=== PATIENT | female | born 1990 | race African-American/Black ===

== ENCOUNTER 2022-06-06 07:54 | Emergency (ER) | payer OTHER, SELFPAY ==
[2022-06-06 08:03] VITALS: BP 137/92; PULSE 81; RESP 16; TEMP 36.6; O2SAT 100
[2022-06-06 08:08] VITALS: BP 137/92; PULSE 81; RESP 16; TEMP 36.6; O2SAT 100
[2022-06-06 09:05] VITALS: BP 125/94; PULSE 80; RESP 18; O2SAT 100
--- NOTE | 2022-06-06 09:42 | ED.PSYCH ---
HPI - Psych General Chief Complaint: Psychiatric Symptoms Stated Complaint: MULTIPLE C/O Time Seen by Provider: 06/06/22 08:11 History of Present Illness HPI Narrative: Patient is a 31-year-old female who presents ER with 2 complaints. First concern is that she would like to be evaluated regards to having had a hysterectomy in October of this year. She has no abdominal pain she is having no urinary frequency urgency or dysuria. She has no vaginal discharge or vaginal bleeding. No pain in her vagina. She had nelly in her abdominal scar but they been removed and its healed well. She has noticed no redness or swelling around the scarring area. She would just like to make sure the area appears okay. Patient also reports that she has had new auditory and visual hallucinations occurring over the last 3 days. She has reached out to her mental health provider and is scheduled for a follow-up appointment on 06/10/2022. The hallucinations are not telling her to harm herself nor are they telling her to harm anybody else. She has no intention of harming anyone. She does feel safe at home. She does not wish to have a mental health evaluation at this time. Denies drug use. Related Data Allergies Allergy/AdvReac Type Severity Reaction Status Date / Time No Known Allergies Allergy Verified 06/06/22 09:11 Review of Systems Review of Systems: All systems reviewed & are unremarkable except as noted in HPI and below Constitutional: Constitutional: Denies chills and Denies fever(s) ENT: Denies nasal congestion and Denies sore throat Cardiovascular: Cardiovascular: Denies chest pain, Denies rapid heart rate and Denies radiating jaw, neck or arm pain Respiratory: Respiratory: Denies cough and Denies dyspnea Gastrointestinal: Gastrointestinal: Denies abdominal pain, Denies diarrhea, Denies nausea and Denies vomiting Genitourinary: Genitourinary: Denies abnormal vaginal bleeding, Denies nocturia, Denies dysuria, Denies pelvic pain and Denies vaginal discharge Psychiatric: Psychiatric: Denies anxiety, Denies depression, Denies homicidal ideation and Denies suicidal ideation Comments: Auditory and visual hallucinations reported PMFSH Past Medical History Medical History (Updated 06/06/22 @ 10:15 by Elia Roman MD) Schizophrenia Surgical History Surgical History (Updated 06/06/22 @ 10:15 by Elia Roman MD) History of hysterectomy Exam Narrative: GENERAL: Well-appearing, well-nourished, and in no acute distress. HEAD: Normocephalic, atraumatic. EYES: PERRL and EOMI. CHEST: Clear to auscultation. No respiratory distress. HEART: Regular rate and rhythm. Normal peripheral pulses. ABDOMEN: Soft, nontender, nondistended. EXTREMITIES: Normal range of motion. No edema. SKIN: Warm, dry, no rash. NEURO: No focal deficits. Alert and oriented x3. PSYCH: Normal mood and affect. Patient endorses auditory and visual hallucinations but is not interacting with them during evaluation. Course Course Emergency Course: Patient resting comfortably. Benign exam. Patient does endorse some auditory and occasionally visual hallucinations. She seems to have appropriate insight and states that this is not new for her. She has no thoughts of harming herself or others and she is not being told to harm others by the voices. She has close follow-up and has been in contact with her mental health professional so it seems appropriate to have her discharged at this time. She did not wish to have any additional mental health evaluation while here. Vital Signs Vital signs: Vital Signs Temperature 97.9 F 06/06/22 08:03 Pulse Rate 81 06/06/22 08:03 Respiratory Rate 16 06/06/22 08:03 Blood Pressure 137/92 H 06/06/22 08:03 Pulse Oximetry 100 06/06/22 08:03 Oxygen Delivery Room Air 06/06/22 08:03 Temperature 97.9 F 06/06/22 08:08 Pulse Rate 80 06/06/22 09:05 Respiratory Rate 18 06/06/22 09:05 Blood Press
[2022-06-06 10:17] VITALS: BP 129/92; PULSE 83; RESP 18; O2SAT 97
== END 2022-06-06 10:19 | disposition home or self-care (01) ==
PROVIDERS: Emergency Provider Emergency Medicine
DX: F20.9 Schizophrenia, unspecified (principal)
CPT/HCPCS: 99281

== ENCOUNTER 2022-07-05 08:41 | Emergency (ER) | payer OTHER, SELFPAY ==
--- NOTE | ~2022-07-05 | XR_ITS ---
EXAMINATION: XR chest 2V 07/05/2022 09:45 INDICATION: Shortness of breath and congestion PROCEDURE: 2 view chest COMPARISON: No prior studies for comparison. FINDINGS: The lungs are clear. The cardiomediastinal silhouette is within normal limits. There are no pleural effusions. There is no pneumothorax suspected. IMPRESSION: 1: NO ACUTE CARDIOPULMONARY DISEASE. Reviewed, dictated and finalized at location B.
--- NOTE | 2022-07-05 09:00 | ECG_ITS ---
Measurements Intervals [place] Rate: 96 P: 21 ID: 140 QRS: 11 QRSD: 77 T: 8 QT: 335 QTc: 425 Interpretive Statements SINUS RHYTHM BASELINE ARTIFACT NONSPECIFIC ST AND T-WAVE ABNORMALITY BORDERLINE ECG NO PREVIOUS ECG AVAILABLE FOR COMPARISON Electronically Signed On 07-05-2022 16:09:21 CDT by Filiberto Ching M.D.
--- NOTE | 2022-07-05 09:14 | ED.SOB ---
HPI - SOB/Dyspnea General Chief Complaint: Shortness of Breath/Dyspnea Stated Complaint: SOB Time Seen by Provider: 07/05/22 08:53 History of Present Illness HPI Narrative: Patient is a 31-year-old female here for evaluation of shortness of breath over the past 2 weeks. Patient states that she has felt dyspnea on exertion for the past 2 weeks. Dyspnea is associated with a itch in the center of her chest. The symptoms completely resolve at rest. Additionally notes a productive cough of white sputum. she denies any history of asthma or respiratory issues. She denies any sick contacts at home. She has not attempted any medication for her symptoms. Denies fevers, chills, nausea or vomiting, rashes. Related Data Allergies Allergy/AdvReac Type Severity Reaction Status Date / Time No Known Allergies Allergy Verified 07/05/22 09:31 Review of Systems Review of Systems: Gen.: Denies fevers or chills Eyes: Denies eye pain or visual change ENT: Denies congestion Respiratory: Reports shortness of breath and cough CV: Reports chest pain. Denies palpitations GI: Denies abdominal pain nausea, emesis or diarrhea denies burning, urgency, frequency or hematuria Musculoskeletal: Denies back pain or muscle pain Neuro: Denies numbness, tingling, weakness or focal weakness Skin: Denies rash Except as documented, all other systems reviewed and negative PMFSH Past Medical History Medical History Schizophrenia Surgical History Surgical History History of hysterectomy Exam Narrative: APPEARANCE: Well appearing, no pain in distress, well-nourished. Head: Normocephalic and atraumatic. EYES: PERRLA/EOMI, conjunctivae clear NOSE: No nasal drainage EARS: External ear normal in appearance THROAT: Oropharynx is clear. Mucous membranes are moist. NECK: Supple. No adenopathy, no masses. RESPIRATORY: Airway patent, respirations nonlabored. Clear to auscultation bilaterally, no rales, rhonchi, wheezing. CARDIOVASCULAR: Tachycardic. Regular rhythm without murmurs, rubs, or gallops. ABDOMINAL: Normoactive bowel sounds. Soft, nontender, nondistended. No rebound tenderness or guarding. MUSCULOSKELETAL: Extremities are warm and well-perfused. Moves all extremities well. No edema. NEURO: Normal speech. No focal neurologic deficits. SKIN: Skin is warm and dry. No rashes. PSYCHIATRIC: Normal affect/mood. Course Vital Signs Vital signs: Vital Signs Temperature 99.1 F 07/05/22 09:23 Pulse Rate 92 07/05/22 09:23 Respiratory Rate 18 07/05/22 09:23 Blood Pressure 143/90 H 07/05/22 09:23 Pulse Oximetry 96 07/05/22 09:23 Oxygen Delivery Room Air 07/05/22 09:23 Temperature 99.1 F 07/05/22 09:23 Pulse Rate 92 07/05/22 09:29 Respiratory Rate 18 07/05/22 09:23 Blood Pressure 143/90 H 07/05/22 09:23 Pulse Oximetry 96 07/05/22 09:29 Oxygen Delivery Room Air 07/05/22 09:29 MDM - SOB/Dyspnea MDM Narrative Medical decision making narrative: 31-year-old female with a history of schizophrenia here for evaluation of cough, shortness of breath and chest pain for the past 2 weeks. Patient is nontoxic-appearing on exam and has normal vital signs. Her heart and lungs are clear to auscultation throughout, does not appear volume overloaded. Her EKG and troponin are both nonischemic. Her D-dimer test is negative so doubt PE. Her chest x-ray is clear. test is negative. Likely bronchitis or other viral upper respiratory infection. Patient will be discharged home, not have a primary provider so was referred to applications intern doctor here. Lab Data Result diagrams: 07/05/22 09:19 07/05/22 09:19 Labs: Lab Results 07/05/22 07/05/22 07/05/22 Range/Units 09:19 09:19 09:19 WBC 10.2 H (4.5-10.0) K/mm3 RBC 4.37 (4.2-5.4) M/mm3 Hgb 13.0 (12.0-15.
[2022-07-05 09:23] VITALS: BP 143/90; PULSE 92; RESP 18; TEMP 37.3; O2SAT 96
[2022-07-05 09:28] LABS: Basophils Percent Auto 0.2 % (0.2-1.2); Eosinophils Absolute Auto 0.1 K/mm3 (0-0.3); Eosinophils Percent Auto 0.7 % (0-4.4); Hematocrit 39.3 % (37.0-47.0); Immature Granulocyte Absolute 0.03 K/mm3 (0.00-0.031); Immature Granulocyte Percent A 0.3 % (0-0.5); Lymphocytes Absolute Auto 1.57 K/mm3 (0.9-3.2); Lymphocytes Percent Auto 15.4 % (18.3-44.2); Mean Corpuscular HGB Conc 33.1 g/dl (32-36); Mean Corpuscular Hemoglobin 29.7 pg (26-34); Mean Corpuscular Volume 89.9 fl (80-100); Mean Platelet Volume 9.1 fl (7.4-10.4); Monocytes Absolute Auto 0.7 K/mm3 (0.1-0.6); Monocytes Percent Auto 6.7 % (2.6-8.5); Neutrophils Absolute Auto 7.8 K/mm3 (1.3-6.7); Neutrophils Percent Auto 76.7 % (45.5-73.1); Platelet Count Result 267 k/mm3 (150-375); Red Blood Count 4.37 M/mm3 (4.2-5.4); Red Cell Distribution Width 13.1 % (11.5-14.5); White Blood Count 10.2 K/mm3 (4.5-10.0)
[2022-07-05 09:29] VITALS: PULSE 92; O2SAT 96
[2022-07-05 09:38] LABS: Anion Gap 12 mmol/L (8-16); Blood Urea Nitrogen 2 mg/dL (7-17); Calcium 8.8 mg/dL (8.4-10.2); Carbon Dioxide 25 mmol/L (22-30); Chloride 100 mmol/L (98-107); Estimated CRCL calculation 77 ml/min; Estimated Glomerular Filt Rate > 60; Glucose 102 mg/dL (65-110); Potassium 4.2 mmol/L (3.4-5.0); Sodium 137 mmol/L (137-145)
[2022-07-05 09:50] LABS: Troponin I < 0.012 ng/mL (0.000-0.034)
[2022-07-05 10:04] LABS: D Dimer 0.43 ug/mL (<0.48)
[2022-07-05 10:20] VITALS: BP 124/84; PULSE 92; RESP 18; O2SAT 98
== END 2022-07-05 10:21 | disposition home or self-care (01) ==
PROVIDERS: Physician Assistant; Emergency Provider Emergency Medicine
DX: J06.9 Acute upper respiratory infection, unspecified (principal); Z90.710 Acquired absence of both cervix and uterus; R94.31 Abnormal electrocardiogram [ECG] [EKG]
CPT/HCPCS: 36415; 71046; 80048; 81025; 84484; 85025; 85380; 93005; 99284

== ENCOUNTER 2022-07-08 10:45 | Emergency (ER) | payer OTHER, SELFPAY ==
--- NOTE | ~2022-07-08 | CT_ITS ---
EXAMINATION: CT abdomen pelvis w con DATE: 07/08/2022 16:04 INDICATION: Left-sided abdomen pain TECHNIQUE: Computed tomography (CT) of the abdomen and pelvis was performed with 100 cc Omnipaque 350 intravenous contrast. The dose-length product was 797.07 mGy-cm. Automated exposure control and iter ative reconstruction technique were employed. COMPARISON: None. FINDINGS: There is a calcified granuloma of the right lower lobe. Otherwise lung bases unremarkable. Small pleural effusions. Heart size normal. No significant vascular abnormality. No lymphadenopathy. Fatty infiltration of the liver. The spleen, pancreas, adrenal glands and kidneys are unremarkable. G allbladder is present. Nonobstructive bowel gas pattern. There is a fat-containing upper abdominal ve ntral hernia. There is a fat-containing periumbilical hernia. Nonobstructive bowel gas pattern. Claudia l appendix. No acute osseous abnormality. IMPRESSION: 1. No acute abdominal abnormality. 2: Small pleural effusions. 3: Fat-containing supraumbilical and periumbilical hernias Reviewed, dictated and finalized at location B.
[2022-07-08 11:27] VITALS: BP 139/86; PULSE 96; RESP 15; TEMP 36.6; O2SAT 100
[2022-07-08 11:27] LABS: Basophils Percent Auto 0.2 % (0.2-1.2); Eosinophils Percent Auto 0.4 % (0-4.4); Hematocrit 41.2 % (37.0-47.0); Hemoglobin 13.8 g/dL (12.0-15.0); Immature Granulocyte Absolute 0.01 K/mm3 (0.00-0.031); Immature Granulocyte Percent A 0.2 % (0-0.5); Lymphocytes Absolute Auto 1.46 K/mm3 (0.9-3.2); Lymphocytes Percent Auto 31.7 % (18.3-44.2); Mean Corpuscular HGB Conc 33.5 g/dl (32-36); Mean Corpuscular Hemoglobin 29.6 pg (26-34); Mean Corpuscular Volume 88.4 fl (80-100); Mean Platelet Volume 9.5 fl (7.4-10.4); Monocytes Absolute Auto 0.8 K/mm3 (0.1-0.6); Monocytes Percent Auto 18.3 % (2.6-8.5); Neutrophils Absolute Auto 2.3 K/mm3 (1.3-6.7); Neutrophils Percent Auto 49.2 % (45.5-73.1); Platelet Count Result 229 k/mm3 (150-375); Red Blood Count 4.66 M/mm3 (4.2-5.4); White Blood Count 4.6 K/mm3 (4.5-10.0)
[2022-07-08 11:41] LABS: Alanine Aminotransferase 16 U/L (6-35); Albumin Level 4.6 g/dL (3.5-5.1); Alkaline Phosphatase 123 U/L (38-126); Anion Gap 13 mmol/L (8-16); Aspartate Amino Transferase 26 U/L (14-36); Bilirubin,Total 0.3 mg/dL (0.2-1.3); Blood Urea Nitrogen 4 mg/dL (7-17); Calcium 8.4 mg/dL (8.4-10.2); Carbon Dioxide 22 mmol/L (22-30); Chloride 101 mmol/L (98-107); Estimated CRCL calculation 95 ml/min; Estimated Glomerular Filt Rate > 60; Glucose 118 mg/dL (65-110); Lipase 109 U/L (23-300); Potassium 3.7 mmol/L (3.4-5.0); Sodium 136 mmol/L (137-145)
--- NOTE | 2022-07-08 14:14 | ED.ABDPAIN ---
HPI - Abdominal Pain General Chief Complaint: Abdominal Pain Stated Complaint: dizziness, abd pain Time Seen by Provider: 07/08/22 13:55 History of Present Illness HPI narrative: Patient is a 31-year-old female here for evaluation of abdominal pain over the past day. Patient states the pain is in her lower abdomen and radiates to her back. She also reports urinary urgency and frequency for the past several days. She has not attempted any medication for pain at home. No fevers, chills, nausea or vomiting. No history of surgeries on her abdomen. Related Data Allergies Allergy/AdvReac Type Severity Reaction Status Date / Time No Known Allergies Allergy Verified 07/05/22 09:31 Review of Systems Review of Systems: Gen: Denies fevers or chills Eyes: Denies eye pain or visual change ENT: Denies congestion Respiratory: Denies shortness of breath or cough CV: Denies chest pain or palpitations GI: Reports lower abdominal pain, nausea. Denies emesis or diarrhea : Reports dysuria and urgency. Musculoskeletal: Denies back pain or muscle pain Neuro: Denies numbness, tingling, weakness or focal weakness Skin: Denies rash Except as documented, all other systems reviewed and negative PMFSH Past Medical History Medical History Schizophrenia Surgical History Surgical History History of hysterectomy Exam Narrative: APPEARANCE: Well appearing, no pain in distress, well-nourished. Head: Normocephalic and atraumatic. EYES: PERRLA/EOMI, conjunctivae clear NOSE: No nasal drainage EARS: External ear normal in appearance THROAT: Oropharynx is clear. Mucous membranes are moist. NECK: Supple. No adenopathy, no masses. RESPIRATORY: Airway patent, respirations nonlabored. Clear to auscultation bilaterally, no rales, rhonchi, wheezing. CARDIOVASCULAR: Regular rate and rhythm without murmurs, rubs, or gallops. ABDOMINAL: Normoactive bowel sounds. Soft, nontender, nondistended. No rebound tenderness or guarding. MUSCULOSKELETAL: Extremities are warm and well-perfused. Moves all extremities well. No edema. NEURO: Normal speech. No focal neurologic deficits. SKIN: Skin is warm and dry. No rashes. PSYCHIATRIC: Normal affect/mood. Course Vital Signs Vital signs: Vital Signs Temperature 97.9 F 07/08/22 11: Pulse Rate 96 07/08/22 11: Respiratory Rate 15 07/08/22 11:27 Blood Pressure 139/86 07/08/22 11:27 Pulse Oximetry 100 07/08/22 11:27 Oxygen Delivery Room Air 07/08/22 11:27 Temperature 97.9 F 07/08/22 11:27 Pulse Rate 96 07/08/22 11:27 Respiratory Rate 15 07/08/22 11:27 Blood Pressure 139/86 07/08/22 11:27 Pulse Oximetry 100 07/08/22 11:27 Oxygen Delivery Room Air 07/08/22 11:27 MDM - Abdominal Pain MDM Narrative Medical decision making narrative: 31-year-old female here for evaluation of lower abdominal pain and dysuria for the past several days. She is nontoxic-appearing on exam does have suprapubic tenderness. She does have evidence of UTI on her urinalysis. No significant leukocytosis and her vital signs are normal. No CVA tenderness to suggest ascending infection. CT scan shows fat-containing umbilical hernia and very small pleural effusions but no acute abdominal process. Patient states that she is not feeling short of breath or having chest pain, feel that the pleural effusions are likely clinically insignificant. Patient will be discharged home with antibiotics for urinary tract infection. She was given reasons to return to the ED and she voiced understanding. Lab Data Result diagrams: 07/08/22 11:18 07/08/22 11:18 Labs: Lab Results 07/08/22 07/08/22 07/08/22 Range/Units 11:18 11:18 15:05 WBC 4.6 (4.5-10.0) K/mm3 RBC 4.66 (4.2-5.4) M/mm3 Hgb 13.8 (12.0-15.0) g/dL Hct 41.2 (37.0-47.0) % [facility]
[2022-07-08 15:29] LABS: Add Urine Microscopic? YES; Appearance Urine Cloudy (Clear); Bacteria Urine 3+ /hpf; Bilirubin Urine Negative (Negative); Blood Urine Negative (Negative); Color Urine Yellow (Yellow); Glucose Urine UA Negative (Negative); Ketones Urine Negative (Negative); Leukocyte Esterase Ur 3+ LEU/UL (Negative); Mucus Urine Rare /lpf; Nitrate Urine Negative (Negative); Protein Urine Negative (Negative); Specific Grav Ur 1.008 (1.001-1.035); Squamous Epithelial Cell Urine Many /hpf (Few); Urobilinogen Urine Negative mg/dL (<2.0)
== END 2022-07-08 16:51 | disposition home or self-care (01) ==
PROVIDERS: Emergency Medicine; Emergency Provider Emergency Medicine; PCP Emergency Medicine
DX: N39.0 Urinary tract infection, site not specified (principal); K42.9 Umbilical hernia without obstruction or gangrene
CPT/HCPCS: 36415; 74177; 80053; 81001; 81025; 83690; 85025; 87086; 87088; 99284; Q9967

== ENCOUNTER 2022-09-19 12:46 | Emergency (ER) | payer OTHER, SELFPAY ==
[2022-09-19 12:52] VITALS: BP 134/76; PULSE 103; RESP 16; TEMP 36.6; O2SAT 100
[2022-09-19 13:23] VITALS: RESP 18; O2SAT 100
--- NOTE | 2022-09-19 13:31 | ED.GENADULT ---
HPI - General Adult General Chief complaint: Unspecified Stated complaint: here for a checkup Time Seen by Provider: 09/19/22 13:02 History of Present Illness HPI narrative: Patient is a 31-year-old female with history of psychotic disorder here for evaluation of dysuria, urgency and frequency for the past 2 days. She has a history of UTIs and states it feels similar to previous. Denies fevers or back pain. Related Data Allergies Allergy/AdvReac Type Severity Reaction Status Date / Time No Known Allergies Allergy Verified 07/05/22 09:31 Review of Systems Review of Systems: Gen.: Denies fevers or chills Eyes: Denies eye pain or visual change ENT: Denies congestion Respiratory: Denies shortness of breath or cough CV: Denies chest pain or palpitations GI: Denies abdominal pain nausea, emesis or diarrhea reports lower abdominal pain, dysuria and urgency. Musculoskeletal: Denies back pain or muscle pain Neuro: Denies numbness, tingling, weakness or focal weakness Skin: Denies rash Except as documented, all other systems reviewed and negative [facility] Past Medical History Medical History Schizophrenia Surgical History Surgical History History of hysterectomy Exam Narrative: APPEARANCE: Disheveled appearing. Head: Normocephalic and atraumatic. EYES: PERRLA/EOMI, conjunctivae clear NOSE: No nasal drainage EARS: External ear normal in appearance THROAT: Oropharynx is clear. Mucous membranes are moist. NECK: Supple. No adenopathy, no masses. RESPIRATORY: Airway patent, respirations nonlabored. Clear to auscultation bilaterally, no rales, rhonchi, wheezing. CARDIOVASCULAR: Regular rate and rhythm without murmurs, rubs, or gallops. ABDOMINAL: Normoactive bowel sounds. Soft, nontender, nondistended. No rebound tenderness or guarding. MUSCULOSKELETAL: Extremities are warm and well-perfused. Moves all extremities well. No edema. NEURO: Normal speech. No focal neurologic deficits. SKIN: Skin is warm and dry. No rashes. PSYCHIATRIC: Normal affect/mood. Course Vital Signs Vital signs: Vital Signs Temperature 97.8 F 09/19/22 12:52 Pulse Rate 103 H 09/19/22 12:52 Respiratory Rate 16 09/19/22 12:52 Blood Pressure 134/76 09/19/22 12:52 Pulse Oximetry 100 09/19/22 12:52 Oxygen Delivery Room Air 09/19/22 12:52 Temperature 97.8 F 09/19/22 12:52 Pulse Rate 103 H 09/19/22 12:52 Respiratory Rate 18 09/19/22 13:23 Blood Pressure 134/76 09/19/22 12:52 Pulse Oximetry 100 09/19/22 13:23 Oxygen Delivery Room Air 09/19/22 12:52 Medical Decision Making MDM Narrative Medical decision making narrative: 31-year-old female here for evaluation of dysuria, urgency and frequency and some suprapubic abdominal pain over the past several days. Her urine does show evidence of infection with 3+ leuks, 1+ bacteria, and red blood cells. No fevers, flank pain, chills or signs of systemic illness. She will be treated as an outpatient with antibiotics. Return precautions discussed and she voiced understanding. Vital Signs Vital Signs: Vital Signs Temperature 97.8 F 09/19/22 12:52 Pulse Rate 103 H 09/19/22 12:52 Respiratory Rate 16 09/19/22 12:52 Blood Pressure 134/76 09/19/22 12:52 Pulse Oximetry 100 09/19/22 12:52 Oxygen Delivery Room Air 09/19/22 12:52 Temperature 97.8 F 09/19/22 12:52 Pulse Rate 103 H 09/19/22 12:52 Respiratory Rate 18 09/19/22 13:23 Blood Pressure 134/76 09/19/22 12:52 Pulse Oximetry 100 09/19/22 13:23 Oxygen Delivery Room Air 09/19/22 12:52 Lab Data Labs: Lab Results 09/19/22 Range/Units 13:28 Urine Color Yellow (Yellow) Urine Appearance Clear (Clear) Urine pH 6.0 (5.0-9.0) Ur Specific [place] <= 1.005 (1.001-1.035) Urine Protein Negative (Negative) mg/dL Urine Glucose (UA)
[2022-09-19 13:36] LABS: Add Urine Microscopic? YES; Appearance Urine Clear (Clear); Bilirubin Urine Negative (Negative); Blood Urine Negative (Negative); Color Urine Yellow (Yellow); Glucose Urine UA Negative (Negative); Ketones Urine Negative (Negative); Leukocyte Esterase Ur 3+ LEU/UL (Negative); Nitrate Urine Negative (Negative); Protein Urine Negative (Negative); Specific Grav Ur <= 1.005 (1.001-1.035); Urobilinogen Urine 0.2 mg/dL (<2.0)
[2022-09-19 13:44] LABS: Bacteria Urine 1+ /hpf; Mucus Urine Rare /lpf; Squamous Epithelial Cell Urine Many /hpf (Few); WBC Urine 16-20 /hpf
== END 2022-09-19 14:09 | disposition home or self-care (01) ==
PROVIDERS: Emergency Provider Physician Assistant
DX: N39.0 Urinary tract infection, site not specified (principal); Z90.710 Acquired absence of both cervix and uterus
CPT/HCPCS: 81001; 81025; 87086; 87088; 99283

== ENCOUNTER 2022-12-13 08:37 | Emergency (ER) | payer OTHER, SELFPAY ==
--- NOTE | ~2022-12-13 | US_ITS ---
EXAMINATION: US venous doppler [facility] DATE: 12/13/2022 13:54 INDICATION: Lower limb pain. TECHNIQUE: Grayscale ultrasound images without and with compression and Doppler ultrasound images of the bilateral lower extremity veins were obtained. COMPARISON: None. FINDINGS: The visualized portions of right common femoral vein, profunda (deep) femoral vein, femoral vein, pop liteal vein, peroneal veins, posterior tibial veins, and greater saphenous vein outflow are patent. The visualized portions of left common femoral vein, profunda femoral vein, femoral vein, popliteal v ein, peroneal veins, posterior tibial veins, and greater saphenous vein outflow are patent. IMPRESSION: 1. No deep venous thrombosis. Reviewed, dictated and finalized at location A.
[2022-12-13 08:56] VITALS: BP 132/89; PULSE 95; RESP 16; TEMP 36.6; O2SAT 99
[2022-12-13 11:26] VITALS: BP 122/74; PULSE 78; RESP 18; TEMP 37; O2SAT 100
[2022-12-13] MEDS: IBUPROFEN 600 MG TABLET PO (11:51)
--- NOTE | 2022-12-13 11:54 | ED.GENADULT ---
HPI - General Adult General Chief complaint: Extremity Injury, Lower Stated complaint: leg pain for a month Time Seen by Provider: 12/13/22 11:06 Source: patient Mode of arrival: ambulatory Limitations: no limitations History of Present Illness HPI narrative: This is a 32-year-old female with PMH of schizophrenia presents to the ED with chief complaint of bilateral leg pain, worse on the left for the past month. Patient states that the pain is actually described more of a tightness and less of a sharp pain. Denies any specific injuries. Denies swelling or skin changes. Denies shortness of breath. Past surgical history of hysterectomy Related Data Allergies Allergy/AdvReac Type Severity Reaction Status Date / Time No Known Allergies Allergy Verified 12/13/22 11:31 Review of Systems Review of Systems: CONSTITUTIONAL: Denies fever, chills, or sweats. EYES: Denies visual changes, redness, or discharge. ENT: Denies rhinorrhea, congestion, sore throat, or otalgia. CARDIOVASCULAR: Denies chest pain, palpitations, or edema. RESPIRATORY: Denies cough or dyspnea. GASTROINTESTINAL: Denies abdominal pain, nausea, vomiting, or diarrhea. GENITOURINARY: Denies dysuria or hematuria. SKIN: Denies rash or itching. MUSCULOSKELETAL: Endorses bilateral lower leg tightness. Denies back pain, joint pain, or myalgia. NEUROLOGIC: Denies headache, numbness, dizziness, or weakness. PSYCHIATRIC: Denies anxiety or depression. PMFSH Past Medical History Medical History Schizophrenia Surgical History Surgical History History of hysterectomy Exam Narrative: GENERAL: Well-appearing, well-nourished, and in no acute distress. HEAD: Normocephalic, atraumatic. EYES: PERRLA and EOMI. ENT: Nares clear, no rhinorrhea or epistaxis. Mucous membranes moist. Oropharynx without tonsillar hypertrophy exudate or other lesions. NECK: Supple. No adenopathy or masses. CHEST: No respiratory distress. Clear to auscultation. No wheezes rales or rhonchi HEART: Regular rate and rhythm. No murmur heard. Normal peripheral pulses. ABDOMEN: Soft, nontender, nondistended, normal active bowel sounds. EXTREMITIES: Negative Homans' sign. No calf tenderness bilaterally. Normal range of motion. No edema. Soft compartments. NV intact distally MSK exam is otherwise benign. Normal bilateral ankles and knees. SKIN: Warm, dry, no rash. NEURO: Alert and oriented x3. No focal deficits. PSYCH: Normal mood and affect. Course Vital Signs Vital signs: Vital Signs Temperature 97.9 F 12/13/22 08:56 Pulse Rate 95 12/13/22 08:56 Respiratory Rate 16 12/13/22 08:56 Blood Pressure 132/89 12/13/22 08:56 Pulse Oximetry 99 12/13/22 08:56 Oxygen Delivery Room Air 12/13/22 08:56 Temperature 98.6 F 12/13/22 11:26 Pulse Rate 78 12/13/22 11:26 Respiratory Rate 18 12/13/22 11:26 Blood Pressure 122/74 12/13/22 11:26 Pulse Oximetry 100 12/13/22 11:26 Oxygen Delivery Room Air 12/13/22 11:26 Medical Decision Making MDM Narrative Medical decision making narrative: This is a 32-year-old female presents to the ED with chief complaint of bilateral lower leg tightness x1 month. Denies skin changes or swelling. Vitals are stable. Exam is within normal limits. CBC, BMP. D-dimer is very slightly elevated so bilateral Dopplers of the lower legs were ordered. Doppler scan show negative CHRISTIANA LE stduies. no emergent cause for her tightness today. Encouraged PCP follow-up to get down to the bottom of this. Muscle relaxer prescribed in the mean time. Patient is understanding and agreeable with the plan for discharge and follow-up. Vital Signs Vital Signs: Vital Signs Temperature 97.9 F 12/13/22 08:56 Pulse Rate 95 12/13/22 08:56 Respiratory Rate 16 12/13/22 08:56 Blood Pressure 132/89 12/13/22 08:56 Pulse Ox
[2022-12-13 12:26] LABS: Basophils Percent Auto 0.3 % (0.2-1.2); Eosinophils Absolute Auto 0.1 K/mm3 (0-0.3); Eosinophils Percent Auto 0.5 % (0-4.4); Hematocrit 40.9 % (37.0-47.0); Hemoglobin 13.7 g/dL (12.0-15.0); Immature Granulocyte Absolute 0.03 K/mm3 (0.00-0.031); Immature Granulocyte Percent A 0.3 % (0-0.5); Lymphocytes Absolute Auto 2.39 K/mm3 (0.9-3.2); Lymphocytes Percent Auto 21.9 % (18.3-44.2); Mean Corpuscular HGB Conc 33.5 g/dl (32-36); Mean Corpuscular Hemoglobin 29.5 pg (26-34); Mean Corpuscular Volume 88.1 fl (80-100); Mean Platelet Volume 9.3 fl (7.4-10.4); Monocytes Absolute Auto 0.7 K/mm3 (0.1-0.6); Monocytes Percent Auto 6.5 % (2.6-8.5); Neutrophils Absolute Auto 7.7 K/mm3 (1.3-6.7); Neutrophils Percent Auto 70.5 % (45.5-73.1); Platelet Count Result 235 k/mm3 (150-375); Red Blood Count 4.64 M/mm3 (4.2-5.4); Red Cell Distribution Width 12.4 % (11.5-14.5); White Blood Count 10.9 K/mm3 (4.5-10.0)
[2022-12-13 12:41] LABS: Anion Gap 7 mmol/L (8-16); Blood Urea Nitrogen 8 mg/dL (7-17); Carbon Dioxide 29 mmol/L (22-30); Chloride 100 mmol/L (98-107); Estimated CRCL calculation 86 ml/min; Estimated Glomerular Filt Rate > 60; Glucose 110 mg/dL (65-110); Potassium 4.3 mmol/L (3.4-5.0); Sodium 136 mmol/L (137-145)
[2022-12-13 13:21] LABS: D Dimer 0.53 ug/mL (<0.48)
== END 2022-12-13 14:20 | disposition home or self-care (01) ==
PROVIDERS: Emergency Provider Physician Assistant
DX: M79.605 Pain in left leg (principal); M79.604 Pain in right leg; G89.29 Other chronic pain; Z90.710 Acquired absence of both cervix and uterus
CPT/HCPCS: 36415; 80048; 85025; 85380; 93970; 99284; A9270

== ENCOUNTER 2023-01-27 13:39 | Emergency (ER) | payer OTHER, SELFPAY ==
--- NOTE | ~2023-01-27 | XR_ITS ---
Clinical Indication: Shortness of breath PA and lateral views of the chest: Comparison: 07/05/2022 Findings: The lungs are clear, without evidence of focal consolidation or pleural effusion. Cardiome diastinal silhouette is within normal limits. Bones and soft tissues are unremarkable. Impression: Normal chest. Reviewed, dictated and finalized at location . Impression: Normal chest.
[2023-01-27 13:40] VITALS: BP 152/116; PULSE 108; RESP 17; TEMP 36.5; O2SAT 99
--- NOTE | 2023-01-27 14:05 | ECG_ITS ---
Measurements Intervals [place] Rate: 90 P: 39 [place]: 144 QRS: 19 QRSD: 78 T: 15 QT: 336 QTc: 413 Interpretive Statements SINUS RHYTHM NORMAL ECG COMPARED TO ECG 07/05/2022 09:22:15 NO SIGNIFICANT CHANGES Electronically Signed On 01-27-2023 14:44:57 CDT by Leo Yu D.O.
--- NOTE | 2023-01-27 14:16 | ED.URI ---
HPI - URI/Sore Throat General Chief Complaint: Upper Respiratory Infection Stated Complaint: wheezing Time Seen by Provider: 01/27/23 13:49 History of Present Illness HPI Narrative: 32-year-old female history of schizophrenia here for evaluation of congestion, cough, pleuritic chest pain x2 days. Patient states that she has felt unwell for the past 2 days. Has had a pain in her upper chest region that is there with deep breaths and when she coughs. No leg swelling. Related Data Allergies Allergy/AdvReac Type Severity Reaction Status Date / Time No Known Allergies Allergy Verified 12/13/22 11:31 Review of Systems Review of Systems: Gen.: Denies fevers or chills Eyes: Denies eye pain or visual change ENT: Denies congestion Respiratory: Reports shortness of breath CV: Reports chest pain GI: Denies abdominal pain nausea, emesis or diarrhea denies burning, urgency, frequency or hematuria Musculoskeletal: Denies back pain or muscle pain Neuro: Denies numbness, tingling, weakness or focal weakness Skin: Denies rash Except as documented, all other systems reviewed and negative PMFSH Past Medical History Medical History Schizophrenia Surgical History Surgical History History of hysterectomy Exam Narrative: APPEARANCE: Well appearing, no pain in distress, well-nourished. Head: Normocephalic and atraumatic. EYES: PERRLA/EOMI, conjunctivae clear NOSE: No nasal drainage EARS: External ear normal in appearance THROAT: Oropharynx is clear. Mucous membranes are moist. NECK: Supple. No adenopathy, no masses. RESPIRATORY: Airway patent, respirations nonlabored. Clear to auscultation bilaterally, no rales, rhonchi, wheezing. CARDIOVASCULAR: Regular rate and rhythm without murmurs, rubs, or gallops. ABDOMINAL: Normoactive bowel sounds. Soft, nontender, nondistended. No rebound tenderness or guarding. MUSCULOSKELETAL: Extremities are warm and well-perfused. Moves all extremities well. No edema. NEURO: Normal speech. No focal neurologic deficits. SKIN: Skin is warm and dry. No rashes. PSYCHIATRIC: Flat affect Course Vital Signs Vital signs: Vital Signs Temperature 97.7 F 01/27/23 13:40 Pulse Rate 108 H 01/27/23 13:40 Respiratory Rate 17 01/27/23 13:40 Blood Pressure 152/116 H 01/27/23 13:40 Pulse Oximetry 99 01/27/23 13:40 Oxygen Delivery Room Air 01/27/23 13:40 Temperature 97.7 F 01/27/23 13:40 Pulse Rate 78 01/27/23 17:17 Respiratory Rate 16 01/27/23 17:17 Blood Pressure 160/122 H 01/27/23 17:17 Pulse Oximetry 100 01/27/23 17:17 Oxygen Delivery Room Air 01/27/23 13:40 MDM - URI/Sore Throat MDM Narrative Medical decision making narrative: 32-year-old female here due to chest pain cough and subjective wheezing for the past several days. She is nontoxic in appearance, no wheezing appreciated on exam. Basic labs unremarkable. EKG and troponin are nonischemic. D-dimer is negative. Chest x-ray is clear. Viral swabs negative. Likely viral URI, will discharge home to follow-up with PMD. Lab Data 01/27/23 14:39 01/27/23 15:02 Labs: Lab Results 01/27/23 01/27/23 01/27/23 Range/Units 14:39 15:02 15:49 WBC 10.9 H (4.5-10.0) K/mm3 RBC 4.44 (4.2-5.4) M/mm3 Hgb 13.3 (12.0-15.0) g/dL Hct 38.8 (37.0-47.0) % MCV 87.4 (80-100) fl MCH 30.0 (26-34) pg MCHC 34.3 (32-36) g/dl RDW 12.4 (11.5-14.5) % Plt Count 260 (150-375) k/mm3 MPV 9.3 (7.4-10.4) fl Immature Gran % (Auto) 0.5 (0-0.5) % Neut % (Auto) 67.5 (45.5-73.1) % Lymph % (Auto) 23.6 (18.3-44.2) % [place] % (Auto) 6.8 (2.6-8.5) % Eos % (Auto) 1.4 (0-4.4) % Baso % (Auto) 0.2 (0.2-1.2) % Lymph # (Auto) 2.56 (0.9-3.2) K/mm3 [place] # (Auto) 0.7 H (0.1-0.6) K/mm3 Eos # (Auto)
[2023-01-27 14:45] LABS: Basophils Percent Auto 0.2 % (0.2-1.2); Eosinophils Absolute Auto 0.2 K/mm3 (0-0.3); Eosinophils Percent Auto 1.4 % (0-4.4); Hematocrit 38.8 % (37.0-47.0); Hemoglobin 13.3 g/dL (12.0-15.0); Immature Granulocyte Absolute 0.05 K/mm3 (0.00-0.031); Immature Granulocyte Percent A 0.5 % (0-0.5); Lymphocytes Absolute Auto 2.56 K/mm3 (0.9-3.2); Lymphocytes Percent Auto 23.6 % (18.3-44.2); Mean Corpuscular HGB Conc 34.3 g/dl (32-36); Mean Corpuscular Volume 87.4 fl (80-100); Mean Platelet Volume 9.3 fl (7.4-10.4); Monocytes Absolute Auto 0.7 K/mm3 (0.1-0.6); Monocytes Percent Auto 6.8 % (2.6-8.5); Neutrophils Absolute Auto 7.4 K/mm3 (1.3-6.7); Neutrophils Percent Auto 67.5 % (45.5-73.1); Platelet Count Result 260 k/mm3 (150-375); Red Blood Count 4.44 M/mm3 (4.2-5.4); Red Cell Distribution Width 12.4 % (11.5-14.5); White Blood Count 10.9 K/mm3 (4.5-10.0)
[2023-01-27 15:23] LABS: Alanine Aminotransferase 16 U/L (6-35); Alkaline Phosphatase 97 U/L (38-126); Anion Gap 5 mmol/L (8-16); Aspartate Amino Transferase 24 U/L (14-36); Bilirubin,Total 0.3 mg/dL (0.2-1.3); Blood Urea Nitrogen 8 mg/dL (7-17); Calcium 8.5 mg/dL (8.4-10.2); Carbon Dioxide 29 mmol/L (22-30); Chloride 102 mmol/L (98-107); Estimated Glomerular Filt Rate > 60; Glucose 103 mg/dL (65-110); Potassium 3.6 mmol/L (3.4-5.0); Sodium 136 mmol/L (137-145)
[2023-01-27 15:27] LABS: D Dimer < 0.27 ug/mL (<0.48)
[2023-01-27 15:33] LABS: Troponin I < 0.012 ng/mL (0.000-0.034)
[2023-01-27 16:29] LABS: Influenza A QL RT-PCR Negative (Negative); Influenza B QL RT-PCR Negative (Negative); SARS-CoV-2 RNA PCR Negative (Negative)
[2023-01-27 17:17] VITALS: BP 160/122; PULSE 78; RESP 16; O2SAT 100
== END 2023-01-27 17:24 | disposition home or self-care (01) ==
PROVIDERS: Emergency Provider Physician Assistant; PCP Emergency Medicine
DX: J06.9 Acute upper respiratory infection, unspecified (principal); Z20.822 Contact with and (suspected) exposure to COVID-19; Z90.710 Acquired absence of both cervix and uterus
CPT/HCPCS: 36415; 71046; 80053; 84484; 85025; 85380; 87636; 93005; 99284

== ENCOUNTER 2023-03-05 13:14 | Emergency (ER) | payer OTHER, SELFPAY ==
--- NOTE | ~2023-03-05 | CT_ITS ---
CT of the Abdomen and Pelvis: Indication: Abdominal pain Technique: 2.5 mm axial scans were obtained through the abdomen and pelvis following intravenous adm inistration of 100 cc of Omnipaque 350. Dose reduction technique was used on this scan by utilizing a utomated exposure control and iterative reconstruction technique. The dose-length product (DLP) was 1 014.01 mGy-cm. COMPARISON: 07/08/2022 Findings: Scans through the lung bases demonstrate minimal bilateral pleural effusions. The liver, spleen, pancreas, gallbladder, adrenals and kidneys are within normal limits. No evidence of aortic aneurysm. No lymphadenopathy. No bowel obstruction or bowel wall thickening. There is no evidence to suggest acute appendicitis. Sm all fat-containing ventral hernia noted, superior to the umbilicus. Additional small umbilical fat-co ntaining hernia noted. Images through the pelvis were performed. Urinary bladder unremarkable. 2.7 cm left ovarian cyst pres ent. No ascites. Impression: 2.7 cm left ovarian cyst. Small fat-containing ventral/umbilical hernias, as noted above. Reviewed, dictated and finalized at [facility]. Impression: 2.7 cm left ovarian cyst. Small fat-containing ventral/umbilical hernias, as noted above.
[2023-03-05 13:36] VITALS: BP 143/114; PULSE 78; RESP 16; TEMP 36.7; O2SAT 100
[2023-03-05 14:01] LABS: Basophils Percent Auto 0.2 % (0.2-1.2); Eosinophils Absolute Auto 0.1 K/mm3 (0-0.3); Eosinophils Percent Auto 0.8 % (0-4.4); Hematocrit 39.7 % (37.0-47.0); Hemoglobin 13.1 g/dL (12.0-15.0); Immature Granulocyte Absolute 0.04 K/mm3 (0.00-0.031); Immature Granulocyte Percent A 0.4 % (0-0.5); Lymphocytes Absolute Auto 2.23 K/mm3 (0.9-3.2); Lymphocytes Percent Auto 21.2 % (18.3-44.2); Mean Corpuscular Hemoglobin 29.6 pg (26-34); Mean Corpuscular Volume 89.8 fl (80-100); Mean Platelet Volume 9.7 fl (7.4-10.4); Monocytes Absolute Auto 0.8 K/mm3 (0.1-0.6); Monocytes Percent Auto 7.4 % (2.6-8.5); Neutrophils Absolute Auto 7.4 K/mm3 (1.3-6.7); Platelet Count Result 229 k/mm3 (150-375); Red Blood Count 4.42 M/mm3 (4.2-5.4); Red Cell Distribution Width 12.5 % (11.5-14.5); White Blood Count 10.5 K/mm3 (4.5-10.0)
[2023-03-05 14:12] LABS: Acetaminophen < 10 ug/mL (10-30); Alanine Aminotransferase 17 U/L (6-35); Albumin Level 4.6 g/dL (3.5-5.1); Alkaline Phosphatase 104 U/L (38-126); Anion Gap 7 mmol/L (8-16); Aspartate Amino Transferase 24 U/L (14-36); Bilirubin,Total 0.3 mg/dL (0.2-1.3); Blood Urea Nitrogen 4 mg/dL (7-17); Calcium 8.8 mg/dL (8.4-10.2); Carbon Dioxide 29 mmol/L (22-30); Chloride 102 mmol/L (98-107); Estimated Glomerular Filt Rate > 60; Glucose 93 mg/dL (65-110); Lipase 55 U/L (23-300); Potassium 3.6 mmol/L (3.4-5.0); Salicylate < 1.0 mg/dL (2-20); Sodium 138 mmol/L (137-145)
--- NOTE | 2023-03-05 14:17 | ED.GENADULT ---
HPI - General Adult General Chief complaint: Psychiatric Symptoms Stated complaint: abd pain History of Present Illness HPI narrative: This is a 32-year-old schizophrenic presenting to ED with a chief complaint of abdominal pain. She said that she developed abdominal plain yesterday, is a diffuse, burning sharp aching feeling it is nonradiating he had 10 intensity and constant. She has had this in the past but cannot tell me what it was. She says it gets improved with burping and taking trazodone. There are no exacerbating symptoms. She did have 2 episodes of diarrhea yesterday. No fever chills nausea vomiting chest pain or difficulty breathing or urinary symptoms. During screening psychiatry questions she told staff that she wanted to hurt herself. She did not have a plan. She is denying suicide homicidal ideation to me. Denies use of drugs or alcohol. She is compliant with her medication. She does not have access to a firearm. She follows at [facility] for psychiatric care. Related Data Allergies Allergy/AdvReac Type Severity Reaction Status Date / Time No Known Allergies Allergy Verified 12/13/22 11:31 [facility] Past Medical History Medical History Schizophrenia Surgical History Surgical History History of hysterectomy Social History Social History Substance use type: does not use Exam Narrative: APPEARANCE: No apparent distress. Head: atraumatic. EYES: EOMI, NOSE: Atraumatic NECK: Trachea midline RESPIRATORY: No increased rate of breathing, clear to auscultation CARDIOVASCULAR: RRR, ABDOMINAL: Well healed surgical scar of the abdomen, soft nontender no guarding or rebound MUSCULOSKELETAl: No obvious deformities NEURO: Alert. Moving 4/4 extremities SKIN:: Warm, dry. Normal color PSYCHIATRIC: Normal affect Course Vital Signs Vital signs: Vital Signs Temperature 98.1 F 03/05/23 13:36 Pulse Rate 78 03/05/23 13:36 Respiratory Rate 16 03/05/23 13:36 Blood Pressure 143/114 H 03/05/23 13:36 Pulse Oximetry 100 03/05/23 13:36 Temperature 98.1 F 03/05/23 13:36 Pulse Rate 78 03/05/23 13:36 Respiratory Rate 16 03/05/23 13:36 Blood Pressure 143/114 H 03/05/23 13:36 Pulse Oximetry 100 03/05/23 13:36 Medical Decision Making MDM Narrative Medical decision making narrative: -Presentation: 32-year-old schizophrenic female presenting for abdominal pain. She told staff that she was suicidal although she is denying that to me. -DDX includes but is not limited to: Gastritis, gallbladder disease, appendicitis, functional abdominal pain, suicidal ideation, schizophrenia -Co-morbidities complicating care: schizophrenia -Social determinants of health: on disability for psych illness and lives alone -External Chart Review: review of previous ER notes for miscellaneous complaints and psychiatric illness -Hx from independent Sources: -Independent interpretation of studies: CBC normal. Metabolic panel normal. CT abdomen pelvis showed a fat containing umbilical hernia and an ovarian cyst. Urine indicative of infection. -Discussion of Management/Consultants: Crisis Center -Dx tests considered but not ordered: none -Procedures: none -Interventions: cephalexin 500 mg -Shared decision making / Disposition: upon re-evaluation the patient says that her stomach pain is resolved without intervention. She was then evaluated by the crisis Center and they agree that she is not a risk to herself this time. She will be given outpatient follow-up -RX Keflex 500 mg b.i.d. x5 days Vital Signs Vital Signs: Vital Signs Temperature 98.1 F 03/05/23 13:36 Pulse Rate 78 03/05/23 13:36 Respiratory Rate 16 03/05/23 13:36 Blood Pressure 143/114 H 03/05/23 13:36 Pulse Oximetry 100 0
[2023-03-05 14:25] LABS: Ethanol < 10 mg/dL (<10)
[2023-03-05 14:39] LABS: Appearance Urine Cloudy (Clear); Bacteria Urine 3+ /hpf; Bilirubin Urine Negative (Negative); Blood Urine Negative (Negative); Color Urine Yellow (Yellow); Glucose Urine UA Negative (Negative); Hyaline Casts Urine Present /lpf; Ketones Urine Trace mg/dL (Negative); Leukocyte Esterase Ur 2+ LEU/UL (Negative); Nitrate Urine Negative (Negative); Non Pathogenic Casts 0-2; Protein Urine Negative (Negative); Specific Grav Ur 1.024 (1.001-1.035); Squamous Epithelial Cell Urine Many /hpf (Few); Urobilinogen Urine 0.2 mg/dL (<2.0); pH Urine 5.5 (5.0-9.0)
[2023-03-05 14:40] LABS: Add Urine Microscopic? YES
[2023-03-05 14:52] LABS: SARS-CoV-2 RNA PCR Negative (Negative)
[2023-03-05 15:09] LABS: Pregnancy On Board Control Positive; Urine Pregnancy Test Negative
[2023-03-05 15:36] LABS: Barbiturate Screen Urine Negative (Negative); Benzodiazepines Screen Urine Negative (Negative)
[2023-03-05 15:41] LABS: Amphetamine Screen Urine Negative (Negative); Cannabinoid Screen Urine Negative (Negative); Cocaine Screen Urine Negative (Negative); Methadone Screen Urine Negative (Negative); Opiate Screen Urine Negative (Negative); Phencyclidine Screen Urine Negative (Negative)
[2023-03-05] MEDS: CEPHALEXIN 500 MG CAPSULE PO (16:20)
[2023-03-05 16:39] VITALS: BP 145/86; PULSE 70; RESP 14; O2SAT 100
== END 2023-03-05 16:42 | disposition home or self-care (01) ==
PROVIDERS: Emergency Provider Emergency Medicine
DX: N39.0 Urinary tract infection, site not specified (principal); F20.9 Schizophrenia, unspecified; Z20.822 Contact with and (suspected) exposure to COVID-19; Z90.710 Acquired absence of both cervix and uterus; N83.202 Unspecified ovarian cyst, left side; K42.9 Umbilical hernia without obstruction or gangrene; K43.9 Ventral hernia without obstruction or gangrene
CPT/HCPCS: 36415; 74177; 80053; 80307; 81001; 81025; 83690; 84443; 85025; 87086; 87088; 87635; 99284; A9270; Q9967

== ENCOUNTER 2023-03-31 12:47 | Emergency (ER) | payer OTHER, SELFPAY ==
--- NOTE | ~2023-03-31 | XR_ITS ---
EXAMINATION: XR chest 2V DATE: 03/31/2023 15:00 INDICATION: Dyspnea. TECHNIQUE: Frontal and lateral views of the chest were obtained. COMPARISON: Chest 2 views 01/27/2023, CT abdomen and pelvis 03/05/2023 FINDINGS: There is no pneumonia or pneumothorax. There are trace pleural effusions. The heart size is normal. IMPRESSION: 1. Trace pleural effusions. Reviewed, dictated and finalized at location [facility]. IMPRESSION: 1. Trace pleural effusions.
[2023-03-31 12:57] VITALS: BP 152/104; PULSE 91; RESP 20; TEMP 36.9; O2SAT 99
--- NOTE | 2023-03-31 13:41 | ED.GENADULT ---
HPI - General Adult General Chief complaint: Urogenital-Female Stated complaint: possible uti Time Seen by Provider: 03/31/23 13:11 History of Present Illness HPI narrative: Patient is a 32-year-old female who presents ER with concerns for urinary tract infection. Began having burning urination 2 weeks ago. Subjective fevers and sweats. No abdominal discomfort. No nausea or vomiting. No chest pain or chest pressure. She does have some cough which concerns her she may have a respiratory infection. Reports she had a UTI 1 month ago that was treated. No vaginal bleeding or discharge. No concern for STI. Related Data Allergies Allergy/AdvReac Type Severity Reaction Status Date / Time No Known Allergies Allergy Verified 03/31/23 13:12 Review of Systems Review of Systems: All systems reviewed & are unremarkable except as noted in HPI and below Constitutional: Constitutional: Reports chills and Reports fever(s) ENT: Denies nasal congestion and Denies sore throat Cardiovascular: Cardiovascular: Denies chest pain, Denies rapid heart rate and Denies radiating jaw, neck or arm pain Respiratory: Respiratory: Reports cough, Reports dyspnea and Denies wheezing Gastrointestinal: Gastrointestinal: Denies abdominal pain, Denies nausea and Denies vomiting Genitourinary: Genitourinary: Reports nocturia, Reports dysuria, Denies pelvic pain, Denies flank pain and Denies vaginal discharge PMFSH Past Medical History Medical History Schizophrenia Surgical History Surgical History History of hysterectomy Social History Social History Substance use type: does not use Exam Narrative: GENERAL: Well-appearing, well-nourished, and in no acute distress. HEAD: Normocephalic, atraumatic. ENT: Mucous membranes moist. CHEST: Clear to auscultation. No respiratory distress. HEART: Regular rate and rhythm. Normal peripheral pulses. ABDOMEN: Soft, nontender, nondistended. EXTREMITIES: Normal range of motion. No edema. NEURO: Alert and oriented x3. PSYCH: Normal mood and affect. Course Course Emergency Course: Patient informed of results. Discharged with antibiotics for UTI. Vital Signs Vital signs: Vital Signs Temperature 98.5 F 03/31/23 12:57 Pulse Rate 91 03/31/23 12:57 Respiratory Rate 03/31/23 12:57 Blood Pressure 152/104 H 03/31/23 12:57 Pulse Oximetry 99 03/31/23 12:57 Oxygen Delivery Room Air 03/31/23 12:57 Temperature 98.5 F 03/31/23 12:57 Pulse Rate 91 03/31/23 12:57 Respiratory Rate 03/31/23 12:57 Blood Pressure 152/104 H 03/31/23 12:57 Pulse Oximetry 99 03/31/23 12:57 Oxygen Delivery Room Air 03/31/23 12:57 Medical Decision Making Vital Signs Vital Signs: Vital Signs Temperature 98.5 F 03/31/23 12:57 Pulse Rate 91 03/31/23 12:57 Respiratory Rate 03/31/23 12:57 Blood Pressure 152/104 H 03/31/23 12:57 Pulse Oximetry 99 03/31/23 12:57 Oxygen Delivery Room Air 03/31/23 12:57 Temperature 98.5 F 03/31/23 12:57 Pulse Rate 91 03/31/23 12:57 Respiratory Rate 03/31/23 12:57 Blood Pressure 152/104 H 03/31/23 12:57 Pulse Oximetry 99 03/31/23 12:57 Oxygen Delivery Room Air 03/31/23 12:57 Lab Data Labs: Lab Results 03/31/23 Range/Units 13:07 Urine Color Dark yellow (Yellow) Urine Appearance Turbid H (Clear) Urine pH 5.5 (5.0-9.0) Ur Specific [place] 1.029 (1.001-1.035) Urine Protein Trace (Negative) mg/dL Urine Glucose (UA) Negative (Negative) mg/dL Urine Ketones Trace H (Negative) mg/dL Ur Blood (Man) Negative (Negative) Urine Nitrate Negative (Negative) Urine Bilirubin Negative (Negative) Urine Urobilinogen 1.0 (<2.0) mg/dL Add Ur Microanalysis Reviewed Leukocyte Esterase Rfl 3+ H (Nega
[2023-03-31 13:42] LABS: Add Urine Microscopic? YES; Appearance Urine Turbid (Clear); Bacteria Urine 4+ /hpf; Bilirubin Urine Negative (Negative); Blood Urine Negative (Negative); Color Urine Dark Yellow (Yellow); Glucose Urine UA Negative (Negative); Ketones Urine Trace mg/dL (Negative); Leukocyte Esterase Ur 3+ LEU/UL (Negative); Need Manual Microscopic Reviewed; Nitrate Urine Negative (Negative); Protein Urine Trace mg/dL (Negative); Specific Grav Ur 1.029 (1.001-1.035); Squamous Epithelial Cell Urine Many /hpf (Few); pH Urine 5.5 (5.0-9.0)
== END 2023-03-31 16:33 | disposition home or self-care (01) ==
PROVIDERS: Emergency Medicine; Emergency Provider Emergency Medicine
DX: N39.0 Urinary tract infection, site not specified (principal)
CPT/HCPCS: 71046; 81001; 81025; 87086; 87088; 99283

== ENCOUNTER 2023-05-22 11:40 | Emergency (ER) | payer OTHER, SELFPAY ==
--- NOTE | ~2023-05-22 | CT_ITS ---
EXAMINATION: CT abdomen pelvis w con DATE: 05/22/2023 13:43 INDICATION: Generalized abdominal pain TECHNIQUE: Computed tomography (CT) of the abdomen and pelvis was performed with 100 CC Omnipaque 350 intravenous contrast. Automated exposure control and iterative reconstruction technique were employe d. Exam dose: 1195.90 mGy-cm total exam DLP. COMPARISON: 03/01/2023 CT abdomen pelvis FINDINGS: The lung bases are clear of infiltrate or consolidation. Normal heart size. No pericardial or pleural effusion. Small sliding hiatal hernia. Very small hepatic dome cyst. The liver, spleen, pancreas, gallbladder, bile ducts and pancreatic radhika t are unremarkable. Normal morphology of the adrenal glands. No renal mass lesion or urinary tract calculus or hydroureteronephrosis is detected. The urinary blad [place] is relatively nondistended which may account for mild thickness of the urinary bladder wall. Ramsey mmend clinical correlation for cystitis. Status post hysterectomy. There is a small amount of free fluid in the pelvic cul-de-sac, likely phys iologic. Peripherally enhancing involuting 1.8 cm right ovarian cyst. Normal appendix. No evidence of appendicitis. No bowel obstruction or intraperitoneal free air. Normal caliber of the abdominal aorta. No intraperitoneal or retroperitoneal or pelvic mass lesion or adenopathy or ascites. There are couple of fat-containing supraumbilical ventral abdominal wall hernias and small fat-contai jasmyne umbilical hernia. Included skeletal structures are unremarkable. IMPRESSION: Normal appendix Status post hysterectomy Involuting 1.8 cm right ovarian cyst Reviewed, dictated and finalized at [facility]. Reviewed, dictated and finalized at location [facility].
[2023-05-22 11:48] VITALS: BP 152/90; PULSE 81; RESP 16; TEMP 36.5; O2SAT 100
--- NOTE | 2023-05-22 12:40 | ED.GENADULT ---
HPI - General Adult General Chief complaint: Unspecified Stated complaint: need a check up Time Seen by Provider: 05/22/23 12:23 History of Present Illness HPI narrative: 32-year-old female with a history of schizophrenia reports for evaluation for multiple complaints. Patient states she had a hysterectomy in October 2021 and was diagnosed 2 months ago with a URI and a UTI 3 months ago. States she wants to make sure everything is okay . Upon further questioning, she is reporting generalized abdominal pain worse in the suprapubic region and urinary frequency for the past 3 weeks. She reports 1 episode of emesis a few days ago. Denies nausea or vomiting since. Denies diarrhea, fever, cough or congestion, chest pain or shortness of breath. Denies vaginal bleeding or discharge, concern for STDs. She is reporting a sore throat and left ear pain as well. Related Data Allergies Allergy/AdvReac Type Severity Reaction Status Date / Time No Known Allergies Allergy Verified 03/31/23 13:12 Review of Systems Review of Systems: CONSTITUTIONAL: Denies fever, chills EYES: Denies visual changes, redness, or discharge. ENT: See HPI CARDIOVASCULAR: Denies chest pain, palpitations, or edema. RESPIRATORY: Denies cough or dyspnea. GASTROINTESTINAL: See HPI GENITOURINARY: Denies dysuria or hematuria. SKIN: Denies rash or itching. MUSCULOSKELETAL: Denies back pain, joint pain, or myalgia. NEUROLOGIC: Denies headache, numbness, dizziness, or weakness. PSYCHIATRIC: Denies anxiety or depression. [facility] Past Medical History Medical History Schizophrenia Surgical History Surgical History History of hysterectomy Social History Social History Substance use type: does not use Exam Narrative: GENERAL: Well-appearing, in no acute distress. Patient resting comfortably in exam bed. Nontoxic appearing HEAD: Normocephalic EYES: PERRLA, EOMI ENT: Nares clear. Mucous membranes moist. Oropharynx without tonsillar hypertrophy, exudate or other lesions. Bilateral TMs are pinon nonbulging. No effusions. Normal canals. NECK: Supple. CHEST: No respiratory distress. Clear to auscultation, no adventitious breath sounds. HEART: Regular rate and rhythm. No murmur heard. Normal peripheral pulses. ABDOMEN: Normal active bowel sounds. Abdomen soft with tenderness in the suprapubic region. No guarding, rebound or rigidity. EXTREMITIES: Normal range of motion. No edema. SKIN: Warm, dry, no rash. NEURO: No focal deficits. Alert and oriented x3. PSYCH: Normal mood and affect. Course Vital Signs Vital signs: Vital Signs Temperature 97.7 F 05/22/23 11:48 Pulse Rate 81 05/22/23 11:48 Respiratory Rate 16 05/22/23 11:48 Blood Pressure 152/90 H 05/22/23 11:48 Pulse Oximetry 100 05/22/23 11:48 Temperature 97.7 F 05/22/23 11:48 Pulse Rate 81 05/22/23 11:48 Respiratory Rate 16 05/22/23 11:48 Blood Pressure 152/90 H 05/22/23 11:48 Pulse Oximetry 100 05/22/23 11:48 Medical Decision Making [facility] Narrative Medical decision making narrative: 32-year-old female with history of schizophrenia reports to the ED for evaluation for multiple complaints. See HPI for further history. Patient is well-appearing on exam, abdomen is soft without guarding or rigidity. Vitals are stable other than elevated blood pressure. Labs significant for no leukocytosis or anemia. Chemistries unremarkable. Urinalysis concerning for urinary tract infection. COVID and flu negative. Strep negative. CT abdomen pelvis shows a normal appendix, there is an involuting 1.8 cm right ovarian cyst. Abdomen imaging discussed with the patient. She received IV fluids. Upon reevaluation she reports she feels much better . Plan to send urine culture and treat UTI given
[2023-05-22] MEDS: SODIUM CHLORIDE 0.9% IV 1,000 ML 999 ML IV CONT (13:07)
[2023-05-22 13:11] LABS: Basophils Percent Auto 0.2 % (0.2-1.2); Eosinophils Percent Auto 0.4 % (0-4.4); Hematocrit 39.4 % (37.0-47.0); Hemoglobin 13.2 g/dL (12.0-15.0); Immature Granulocyte Absolute 0.04 K/mm3 (0.00-0.031); Immature Granulocyte Percent A 0.4 % (0-0.5); Lymphocytes Absolute Auto 2.24 K/mm3 (0.9-3.2); Lymphocytes Percent Auto 24.2 % (18.3-44.2); Mean Corpuscular HGB Conc 33.5 g/dl (32-36); Mean Corpuscular Hemoglobin 29.8 pg (26-34); Mean Corpuscular Volume 88.9 fl (80-100); Mean Platelet Volume 9.4 fl (7.4-10.4); Monocytes Absolute Auto 0.6 K/mm3 (0.1-0.6); Monocytes Percent Auto 6.8 % (2.6-8.5); Neutrophils Absolute Auto 6.3 K/mm3 (1.3-6.7); Platelet Count Result 223 k/mm3 (150-375); Red Blood Count 4.43 M/mm3 (4.2-5.4); Red Cell Distribution Width 12.6 % (11.5-14.5); White Blood Count 9.3 K/mm3 (4.5-10.0)
[2023-05-22 13:17] LABS: Appearance Urine Cloudy (Clear); Bacteria Urine 3+ /hpf; Bilirubin Urine Negative (Negative); Blood Urine Negative (Negative); Color Urine Yellow (Yellow); Glucose Urine UA Negative (Negative); Ketones Urine Negative (Negative); Leukocyte Esterase Ur 3+ LEU/UL (Negative); Nitrate Urine Negative (Negative); Non Pathogenic Casts 0-2; Protein Urine Negative (Negative); Specific Grav Ur 1.021 (1.001-1.035); Squamous Epithelial Cell Urine Moderate /hpf (Few); Urobilinogen Urine 0.2 mg/dL (<2.0)
[2023-05-22 13:18] LABS: Add Urine Microscopic? YES
[2023-05-22 13:20] LABS: Alanine Aminotransferase 19 U/L (6-35); Albumin Level 4.3 g/dL (3.5-5.1); Alkaline Phosphatase 89 U/L (38-126); Anion Gap 9 mmol/L (8-16); Aspartate Amino Transferase 25 U/L (14-36); Bilirubin,Total 0.3 mg/dL (0.2-1.3); Blood Urea Nitrogen 7 mg/dL (7-17); Carbon Dioxide 29 mmol/L (22-30); Chloride 101 mmol/L (98-107); Estimated CRCL calculation 92 ml/min; Estimated Glomerular Filt Rate > 60; Glucose 99 mg/dL (65-110); Lipase 56 U/L (23-300); Potassium 4.4 mmol/L (3.4-5.0); Sodium 139 mmol/L (137-145)
[2023-05-22 13:23] LABS: Strep Group A RT-PCR NOT DETECTED (Negative)
[2023-05-22 13:34] LABS: Influenza A QL RT-PCR Negative (Negative); Influenza B QL RT-PCR Negative (Negative); SARS-CoV-2 RNA PCR Negative (Negative)
[2023-05-22] MEDS: CEPHALEXIN 500 MG CAPSULE PO (14:35)
[2023-05-22 14:38] VITALS: BP 157/120; PULSE 65; RESP 20; TEMP 36.1; O2SAT 100
== END 2023-05-22 14:43 | disposition home or self-care (01) ==
PROVIDERS: Emergency Provider Physician Assistant
DX: R82.998 Other abnormal findings in urine (principal); Z20.822 Contact with and (suspected) exposure to COVID-19; F20.9 Schizophrenia, unspecified; Z90.710 Acquired absence of both cervix and uterus
CPT/HCPCS: 36415; 74177; 80053; 81001; 83690; 85025; 87086; 87088; 87636; 87651; 96360; 99284; A9270; J7030; Q9967

== ENCOUNTER 2023-06-02 11:53 | Emergency (ER) | payer OTHER, SELFPAY ==
[2023-06-02] VITALS (8 sets, daily range): BP systolic 153; BP diastolic 102; PULSE 91; RESP 18; TEMP 36.7; O2SAT 98–100
--- NOTE | ~2023-06-02 | XR_ITS ---
EXAMINATION: XR chest 2V 06/02/2023 16:24 INDICATION: Cough. Fevers. PROCEDURE: 2 view chest COMPARISON: 03/31/2023 FINDINGS: The lungs are clear. There is calcified granuloma in the right lower lung. The cardiomedias tinal silhouette is within normal limits. There are no pleural effusions. There is no pneumothorax suspected. IMPRESSION: 1: NO ACUTE CARDIOPULMONARY DISEASE. Reviewed, dictated and finalized at location [facility].
--- NOTE | ~2023-06-02 | CT_ITS ---
EXAMINATION: CT abdomen pelvis w con INDICATION: Diffuse lower abdominal pain TECHNIQUE: Computed tomographic images of the abdomen and pelvis were obtained after the administrati on of 100 cc of Omnipaque 350 intravenous contrast. The dose-length product (DLP) was 988.50 mGy-cm. Automated exposure control and iterative reconstruction technique were employed. COMPARISON: 05/22/2023 FINDINGS: Minimal dependent atelectasis is present in the lung bases. The heart size is normal. There are small pleural effusions. There is a 2 mm cyst of the right hepatic lobe. The spleen, pancreas, g allbladder, and adrenal glands are normal. The kidneys are unremarkable. No pathologically enlarged a bdominal or pelvic lymph nodes are identified. No free intraperitoneal gas or evidence of bowel obstr uction. The appendix is normal. A moderate volume of colonic stool is present. Chronic areas of soft tissue density in the buttocks could reflect injection sites. IMPRESSION: 1. Constipation. Reviewed, dictated and finalized at location [facility]. IMPRESSION: 1. Constipation.
[2023-06-02 14:49] LABS: Basophils Percent Auto 0.3 % (0.2-1.2); Eosinophils Absolute Auto 0.1 K/mm3 (0-0.3); Eosinophils Percent Auto 0.9 % (0-4.4); Hematocrit 41.7 % (37.0-47.0); Hemoglobin 13.6 g/dL (12.0-15.0); Immature Granulocyte Absolute 0.02 K/mm3 (0.00-0.031); Immature Granulocyte Percent A 0.3 % (0-0.5); Lymphocytes Absolute Auto 2.29 K/mm3 (0.9-3.2); Mean Corpuscular HGB Conc 32.6 g/dl (32-36); Mean Corpuscular Hemoglobin 29.7 pg (26-34); Mean Platelet Volume 9.5 fl (7.4-10.4); Monocytes Absolute Auto 0.6 K/mm3 (0.1-0.6); Monocytes Percent Auto 7.1 % (2.6-8.5); Neutrophils Absolute Auto 4.9 K/mm3 (1.3-6.7); Neutrophils Percent Auto 62.4 % (45.5-73.1); Platelet Count Result 254 k/mm3 (150-375); Red Blood Count 4.58 M/mm3 (4.2-5.4); Red Cell Distribution Width 12.7 % (11.5-14.5); White Blood Count 7.9 K/mm3 (4.5-10.0)
[2023-06-02 14:54] LABS: Appearance Urine Cloudy (Clear); Bacteria Urine 1+ /hpf; Bilirubin Urine Negative (Negative); Blood Urine Negative (Negative); Color Urine Yellow (Yellow); Glucose Urine UA Negative (Negative); Ketones Urine Negative (Negative); Leukocyte Esterase Ur 2+ LEU/UL (Negative); Nitrate Urine Negative (Negative); Non Pathogenic Casts 0-2; Protein Urine Negative (Negative); RBC Urine 0-2 /hpf (0-2); Specific Grav Ur 1.014 (1.001-1.035); Squamous Epithelial Cell Urine Many /hpf (Few); Urobilinogen Urine 0.2 mg/dL (<2.0); WBC Urine 21-50 /hpf
[2023-06-02 14:55] LABS: Add Urine Microscopic? YES
[2023-06-02 15:01] LABS: Alanine Aminotransferase 16 U/L (6-35); Albumin Level 4.6 g/dL (3.5-5.1); Alkaline Phosphatase 93 U/L (38-126); Anion Gap 7 mmol/L (8-16); Aspartate Amino Transferase 28 U/L (14-36); Bilirubin,Total 0.5 mg/dL (0.2-1.3); Blood Urea Nitrogen 5 mg/dL (7-17); Carbon Dioxide 30 mmol/L (22-30); Chloride 101 mmol/L (98-107); Estimated CRCL calculation 91 ml/min; Estimated Glomerular Filt Rate > 60; Glucose 99 mg/dL (65-110); Lipase 75 U/L (23-300); Potassium 3.9 mmol/L (3.4-5.0); Sodium 138 mmol/L (137-145)
--- NOTE | 2023-06-02 15:23 | ED.ABDPAIN ---
HPI - Abdominal Pain General Chief Complaint: Abdominal Pain Stated Complaint: ab pain Time Seen by Provider: 06/02/23 14:24 Source: patient and old records reviewed Mode of arrival: EMS Limitations: no limitations History of Present Illness HPI narrative: Patient is a 32 y/o female, with PMH of schizophrenia, who presents to the ED via EMS with multiple complaints. Patient is somewhat a poor historian. Per records, she was seen in the ED last week for multiple complaints at that time as well. She was diagnosed with a UTI and prescribed Keflex. Patient reports she has had ongoing dysuria and intermittent diffuse abdominal pain since then. No aggravating alleviating factors to the pain. She has not tried anything for the pain. Reports pain worse on right side. She reports nausea, denies vomiting since last week. Reports diarrhea. Reports cough, subjective fever. Reports HAs. Denies CP or SOB. Related Data Allergies Allergy/AdvReac Type Severity Reaction Status Date / Time No Known Allergies Allergy Verified 06/02/23 14:52 Review of Systems Review of Systems: CONSTITUTIONAL: See HPI. CARDIOVASCULAR: Denies chest pain. RESPIRATORY: Reports cough. Denies dyspnea. GASTROINTESTINAL: See HPI. GENITOURINARY: See HPI. MUSCULOSKELETAL: Denies back pain, joint pain, or myalgia. NEUROLOGIC: See HPI. All systems reviewed & are unremarkable except as noted in HPI and below PMFSH Past Medical History Medical History Schizophrenia Surgical History Surgical History History of hysterectomy Social History Social History Substance use type: does not use Exam Narrative: GENERAL: Well appearing, obese with BMI of 34.0, non-toxic, in no acute distress. HEAD: Normocephalic, atraumatic. NECK: Supple. No adenopathy, no masses. RESPIRATORY: Airway patent, respirations nonlabored. Clear to auscultation bilaterally, no rales, rhonchi, wheezing. CARDIOVASCULAR: Regular rate and rhythm without murmurs, rubs, or gallops. Radial pulses 2+ and equal bilaterally. ABDOMINAL: Soft, diffuse tenderness throughout abdomen, worse in right lower abdomen, nondistended, no hepatosplenomegaly. Normoactive BS. MUSCULOSKELETAL: Moves all extremities. Strength/ROM intact without gross deformities. SKIN: Warm, dry, normal color. No rashes. NEURO: A&O X3. Speech clear. Cranial nerves II-XII grossly intact. Steady gait. No ataxic movements. PSYCHIATRIC: Soft-spoken, flat affect, avoids eye contact. Normal interaction. Course Vital Signs Vital signs: Vital Signs Temperature 98.1 F 06/02/23 11:55 Pulse Rate 91 06/02/23 11:55 Respiratory Rate 18 06/02/23 11:55 Blood Pressure 153/102 H 06/02/23 11:55 Pulse Oximetry 98 06/02/23 11:55 Oxygen Delivery Room Air 06/02/23 11:55 Temperature 98.1 F 06/02/23 11:55 Pulse Rate 91 06/02/23 11:55 Respiratory Rate 18 06/02/23 11:55 Blood Pressure 153/102 H 06/02/23 11:55 Pulse Oximetry 100 06/02/23 18:00 Oxygen Delivery Room Air 06/02/23 11:55 MDM - Abdominal Pain MDM Narrative Medical decision making narrative: Multiple complaints, headaches, abdominal pain, nausea, cough. Diagnosed with UTI last week, started on Keflex. Per records, urine culture resulted negative. Vital stable upon arrival. Afebrile. Basic laboratory studies unremarkable. No leukocytosis. Stable kidney function. No significant signs of dehydration. Urinalysis still appears slightly infectious with 2+ leuk esterase, 21-50 WBC, 1+ urine bacteria. Sent for culture again. CT abdomen pelvis obtained and showing findings consistent with constipation. No other significant findings. Normal appendix. On reevaluation, patient resting comfortably, no signs of surgical abdomen on repeat examinations. She is fee
[2023-06-02] MEDS: SODIUM CHLORIDE 0.9% IV 1,000 ML 999 ML IV CONT (15:42)
[2023-06-02] MEDS: ONDANSETRON INJ 4 MG/2 ML VIAL IV PUSH (15:42)
[2023-06-02] MEDS: ACETAMINOPHEN 500 MG TABLET 1000 MG PO (15:42)
[2023-06-02 16:29] LABS: Influenza A QL RT-PCR Negative (Negative); Influenza B QL RT-PCR Negative (Negative); SARS-CoV-2 RNA PCR Negative (Negative)
== END 2023-06-02 18:17 | disposition home or self-care (01) ==
PROVIDERS: Emergency Provider Physician Assistant
DX: R10.9 Unspecified abdominal pain (principal); N39.0 Urinary tract infection, site not specified; K59.00 Constipation, unspecified; Z20.822 Contact with and (suspected) exposure to COVID-19; Z90.710 Acquired absence of both cervix and uterus
CPT/HCPCS: 36415; 71046; 74177; 80053; 81001; 83690; 85025; 87086; 87088; 87636; 96361; 96374; 99284; A9270; J2405; J7030; Q9967

== ENCOUNTER 2023-06-07 13:02 | Emergency (ER) | payer OTHER, SELFPAY ==
[2023-06-07 14:33] VITALS: BP 154/106; PULSE 76; RESP 20; TEMP 36.4; O2SAT 100
--- NOTE | 2023-06-07 15:10 | ED.GENADULT ---
HPI - General Adult General Chief complaint: Unspecified Stated complaint: needs a doctor note for transportation Time Seen by Provider: 06/07/23 14:57 History of Present Illness HPI narrative: Krystal Armijo is a y/o female who presents today with reports of having an appointment with [facility] in [place] today and she lost her paper to get the medical transportation to her appointment so she called EMS to take her but they said they had to take her to the closest place which was here. She denies SI/ HI she is wishing to get transported to [facility] in [place] for her appointment. Related Data Allergies Allergy/AdvReac Type Severity Reaction Status Date / Time No Known Allergies Allergy Verified 06/07/23 14:53 Review of Systems Review of Systems: CONSTITUTIONAL: Denies fever, chills, or sweats. EYES: Denies visual changes, redness, or discharge. ENT: Denies rhinorrhea, congestion, sore throat, or otalgia. CARDIOVASCULAR: Denies chest pain, palpitations, or edema. RESPIRATORY: Denies cough or dyspnea. GASTROINTESTINAL: Denies abdominal pain, nausea, vomiting, or diarrhea. GENITOURINARY: Denies dysuria or hematuria. SKIN: Denies rash or itching. MUSCULOSKELETAL: Denies back pain, joint pain, or myalgia. NEUROLOGIC: Denies headache, numbness, dizziness, or weakness. PSYCHIATRIC: Denies anxiety or depression. [facility] Past Medical History Medical History Schizophrenia Surgical History Surgical History History of hysterectomy Social History Social History Substance use type: does not use Exam Narrative: GENERAL: Well-appearing, well-nourished, and in no acute distress. HEAD: Normocephalic, atraumatic. EYES: PERRLA and EOMI. ENT: Nares clear, no rhinorrhea or epistaxis. Mucous membranes moist. Oropharynx without tonsillar hypertrophy exudate or other lesions. Bilateral TMs pearly pinon nonbulging NECK: Supple. No adenopathy or masses. No carotid bruits or JVD CHEST: Clear to auscultation. No respiratory distress. No wheezes rales or rhonchi HEART: Regular rate and rhythm. No murmur heard. Normal peripheral pulses. ABDOMEN: Soft, nontender, nondistended, normal active bowel sounds. EXTREMITIES: Normal range of motion. No edema. SKIN: Warm, dry, no rash. NEURO: No focal deficits. Alert and oriented x3. PSYCH: Normal mood and affect. Course Vital Signs Vital signs: Vital Signs Temperature 36.4 C 06/07/23 14:33 Pulse Rate 76 06/07/23 14:33 Respiratory Rate 20 06/07/23 14:33 Blood Pressure 154/106 H 06/07/23 14:33 Pulse Oximetry 100 06/07/23 14:33 Temperature 36.4 C 06/07/23 14:33 Pulse Rate 76 06/07/23 14:33 Respiratory Rate 20 06/07/23 14:33 Blood Pressure 154/106 H 06/07/23 14:33 Pulse Oximetry 100 06/07/23 14:33 Medical Decision Making MDM Narrative Medical decision making narrative: Patient denies any complaints , denies SI/ HI Patient is concerned about getting a form filled out to get transportation to her appointment at [facility] in [place] because she lost her form. I called [facility] in [place] and spoke with Veronika and she states that pt can call and leave a voicemail with her provider and her appointment will be rescheduled and they will arrange her transportation to her next appointment. Veronika states they should be able to get her in within the next 2-3 days Patient updated on this and she states she will call and reschedule and she denies any other concerns - she had thought calling EMS earlier she could have been taken to [facility] not here. Vital Signs Vital Signs: Vital Signs Temperature 36.4 C 06/07/23 14:33 Pulse Rate 76 06/07/23 14:33 Respiratory Rate 06/07/23 14:33 Blood Pressure 154/106 H 06/07/23 14:33 Pulse Oximetry 100 06/07/23 14:33
== END 2023-06-07 15:33 | disposition home or self-care (01) ==
PROVIDERS: Emergency Provider Nurse Practitioner Family
DX: Z00.8 Encounter for other general examination (principal); F20.9 Schizophrenia, unspecified
CPT/HCPCS: 99281

== ENCOUNTER 2023-09-06 12:48 | Emergency (ER) | payer OTHER, SELFPAY ==
[2023-09-06 13:20] VITALS: BP 139/109; PULSE 92; RESP 20; TEMP 36.9; O2SAT 99
--- NOTE | 2023-09-06 13:27 | ED.GENADULT ---
HPI - General Adult General Chief complaint: Unspecified Stated complaint: requesting test Time Seen by Provider: 09/06/23 14:21 Source: patient Mode of arrival: ambulatory Limitations: no limitations History of Present Illness HPI narrative: Patient is a 32-year-old female who presents emergency department today ambulatory steady gait requesting a test. She states she has had mild nausea just feels like she is . She had a period on 08/23. She states she thinks she has had a partial hysterectomy. She does have an OBGYN that she can follow-up with. denies any pain or bleeding. Related Data Allergies Allergy/AdvReac Type Severity Reaction Status Date / Time No Known Allergies Allergy Verified 06/07/23 14:53 Review of Systems Review of Systems: CONSTITUTIONAL: Denies fever, chills, or sweats. +just feels GASTROINTESTINAL:+nausea. denies abdominal pain or pelvic pain GENITOURINARY: Denies dysuria or hematuria. denies vaginal discharge or bleeding SKIN: Denies rash or itching. BACL: denies back pain All systems reviewed & are unremarkable except as noted in HPI and below PMFSH Past Medical History Medical History Schizophrenia Surgical History Surgical History History of hysterectomy Social History Social History Substance use type: does not use Exam Narrative: BRIEF FOCUSED EXAM: alert, resting on chair, respirations regular and non-labored, no acute distress noted. abdomen soft and non-tender. patient is overweight. GENERAL: Well-appearing, well-nourished, and in no acute distress. HEAD: Normocephalic, atraumatic. EYES: PERRLA ENT: Mucous membranes moist. CHEST: Clear to auscultation. No respiratory distress. HEART: Regular rate and rhythm. Normal peripheral pulses. ABDOMEN: Soft, nontender, nondistended, normal active bowel sounds. EXTREMITIES: Normal range of motion. No edema. SKIN: Warm, dry, no rash. NEURO: No focal deficits. Alert and oriented x3. PSYCH: Normal mood, slightly bizarre. Course Vital Signs Vital signs: Vital Signs Temperature 98.4 F 09/06/23 13:20 Pulse Rate 92 09/06/23 13:20 Respiratory Rate 20 09/06/23 13:20 Blood Pressure 139/109 H 09/06/23 13:20 Pulse Oximetry 99 09/06/23 13:20 Oxygen Delivery Room Air 09/06/23 13:20 Temperature 98.4 F 09/06/23 13:20 Pulse Rate 92 09/06/23 13:20 Respiratory Rate 20 09/06/23 13:20 Blood Pressure 139/99 H 09/06/23 14:41 Pulse Oximetry 99 09/06/23 13:20 Oxygen Delivery Room Air 09/06/23 13:20 Medical Decision Making MDM Narrative Medical decision making narrative: Patient presents today wanting a test. test is negative. No other reported symptoms. No further workup needed at this time. I educated the patient. A Patient is nontoxic in appearance. Stable re-evaluation exam just before discharge. Patient in no acute distress. Vitals within normal limits. Discussed return precautions with the patient including all the red flag signs or symptoms of when to return the patient. The patient verbalized understanding and was agreeable with discharge and close follow-up Vital Signs Vital Signs: Vital Signs Temperature 98.4 F 09/06/23 13:20 Pulse Rate 92 09/06/23 13:20 Respiratory Rate 20 09/06/23 13:20 Blood Pressure 139/109 H 09/06/23 13:20 Pulse Oximetry 99 09/06/23 13:20 Oxygen Delivery Room Air 09/06/23 13:20 Temperature 98.4 F 09/06/23 13:20 Pulse Rate 92 09/06/23 13:20 Respiratory Rate 20 09/06/23 13:20 Blood Pressure 139/99 H 09/06/23 14:41 Pulse Oximetry 99 09/06/23 13:20 Oxygen Delivery Room Air 09/06/23 13:20 Lab Data Lab results reviewed: Yes I reviewed the patient's lab results. Lab results narrative: neg pr
[2023-09-06 14:41] VITALS: BP 139/99
== END 2023-09-06 14:42 | disposition home or self-care (01) ==
PROVIDERS: Emergency Provider Nurse Practitioner
DX: Z32.02 Encounter for pregnancy test, result negative (principal)
CPT/HCPCS: 81025; 99283

== ENCOUNTER 2023-11-11 09:22 | Emergency (ER) | payer OTHER, SELFPAY ==
[2023-11-11] VITALS (14 sets, daily range): BP systolic 129–146; BP diastolic 90–112; PULSE 65–89; RESP 10–16; TEMP 36.8; O2SAT 98–100
--- NOTE | ~2023-11-11 | XR_ITS ---
EXAMINATION: XR chest 2V DATE: 11/11/2023 10:07 INDICATION: Asthma presenting with shortness of breath TECHNIQUE: frontal and lateral views of the chest were obtained. COMPARISON: Chest radiograph dated 06/02/2023 FINDINGS: Normal lung volumes. No focal airspace opacities, pulmonary edema, pleural effusion or pneumothorax. The cardiomediastinal silhouette is normal. Visualized bones and soft tissues are unremarkable. IMPRESSION: 1. No acute cardiopulmonary disease. Reviewed, dictated and finalized at location B. [employer]
--- NOTE | 2023-11-11 09:18 | ED.SOB ---
HPI - SOB/Dyspnea General Chief Complaint: Shortness of Breath/Dyspnea Stated Complaint: dyspnea Time Seen by Provider: 11/11/23 09:22 Source: patient Mode of arrival: ambulatory Limitations: no limitations History of Present Illness HPI Narrative: Krystal is a 33-year-old female patient presenting to the ER today with complaints of shortness of breath that just started this morning. Denies any cough, chills, body aches, runny nose, sore throat, or congestion. She does have a history of schizophrenia and is on Invega. She is slow to respond when answering questions. Reports that she has recently had a partial hysterectomy at [facility]. Denies any current vaginal bleeding. Related Data Allergies Allergy/AdvReac Type Severity Reaction Status Date / Time No Known Allergies Allergy Verified 11/11/23 09:30 Review of Systems Review of Systems: Pertinent positives per HPI. Patient denies any fever, chills, rash, headache, visual changes, dizziness, cough, runny nose, sore throat,chest pain, palpitations, nausea, vomiting, diarrhea, constipation, abdominal pain, or any urinary issues. [facility] Past Medical History Medical History Schizophrenia Surgical History Surgical History History of hysterectomy Social History Social History Substance use type: does not use Comments At the time of my signature, I reviewed and agree with the nursing past medical, surgical, social, and family history. There is no relevant family history pertinent to the patient complaint. Exam Narrative: General: Well-developed, well nourished, in no apparent distress Head: Normocephalic, atraumatic Eyes: Pupils equally round and reactive to light bilaterally, EOM intact, sclera and conjunctive clear, no discharge, lids normal Ears: TMs intact and clear, ear canals clear, no drainage, grossly hearing normal. Nose: Nares patent, no discharge, no inflammation, no sinus tenderness. Mouth: Oropharynx without lesions or masses, good dentition, MMM. Neck: Supple, trachea midline, no enlargement of anterior or posterior cervical nodes, no thyroid masses or goiter palpable. Cardio: Regular rate and rhythm, s1 and s2 normal, no murmur appreciated. Resp: Clear to auscultation bilaterally anteriorly and posteriorly, no rhonchi, rales, wheezing or rubs Course Course Emergency Course: Portions of this record may have been created with voice recognition software. Vital Signs Vital signs: Vital signs reviewed MDM - SOB/Dyspnea MDM Narrative Medical decision making narrative: At the time of visit patient is resting comfortably on the exam table. Patient appears to be nontoxic. EKG: Sinus rhythm with heart rate of 77 beats per minute, no ST elevation, depression, or T-wave inversion noted. No significant changes from comparison EKG. Labs: CBC shows white blood cell count of 9.1, H&H of 12.6 and 37.7, platelet counts 219, anti coagulation studies are within normal limits, negative D-dimer less than 0. Two 7, chemistry shows sodium level 138, potassium of 3.9, chloride 106, BUN of 4, creatinine 0.8, GFR is greater than 60, glucose is 104, liver function test within normal limits, troponin is negative at less than 0.012. Urinalysis shows a trace of leuko Estrace otherwise clear, COVID influenza and RSV testing was negative Diagnostics: Chest x-ray shows no acute cardiopulmonary process Plan: I suspect patient has feelings of dyspnea. Her SpO2 is 99-100% on room air patient has no sign of increased work to breathe. All labs, EKG, chest x-ray reviewed. I feels patient can be followed up with her PCP as an outpatient for further evaluation. Supportive measures were discussed with the patient and they voiced understanding discharge instructions and agrees to treatment plan. Re
--- NOTE | 2023-11-11 09:31 | ECG_ITS ---
Measurements Intervals [place] Rate: 77 P: 22 W[place]: 101 QRS: 9 QRSD: 77 T: 10 QT: 367 QTc: 418 Interpretive Statements SINUS RHYTHM WITH SHORT [place] INTERVAL BASELINE ARTIFACT- I, II, III, AVR, AVL, AVF, V1-V3 BORDERLINE ECG COMPARED TO ECG 01/27/2023 14:33:49 NO SIGNIFICANT CHANGES Electronically Signed On 11-11-2023 9:48:05 [employer]CHNICIAN by Leo Yu D.O.
[2023-11-11 09:47] LABS: Basophils Percent Auto 0.1 % (0.2-1.2); Eosinophils Absolute Auto 0.1 K/mm3 (0-0.3); Eosinophils Percent Auto 0.9 % (0-4.4); Hematocrit 37.7 % (37.0-47.0); Hemoglobin 12.6 g/dL (12.0-15.0); Immature Granulocyte Absolute 0.03 K/mm3 (0.00-0.031); Immature Granulocyte Percent A 0.3 % (0-0.5); Lymphocytes Absolute Auto 2.05 K/mm3 (0.9-3.2); Lymphocytes Percent Auto 22.6 % (18.3-44.2); Mean Corpuscular HGB Conc 33.4 g/dl (32-36); Mean Corpuscular Hemoglobin 29.5 pg (26-34); Mean Corpuscular Volume 88.3 fl (80-100); Mean Platelet Volume 9.7 fl (7.4-10.4); Monocytes Absolute Auto 0.6 K/mm3 (0.1-0.6); Neutrophils Absolute Auto 6.3 K/mm3 (1.3-6.7); Neutrophils Percent Auto 69.1 % (45.5-73.1); Platelet Count Result 219 k/mm3 (150-375); Red Blood Count 4.27 M/mm3 (4.2-5.4); Red Cell Distribution Width 12.7 % (11.5-14.5); White Blood Count 9.1 K/mm3 (4.5-10.0)
[2023-11-11 09:56] LABS: Alanine Aminotransferase 12 U/L (6-35); Albumin Level 4.1 g/dL (3.5-5.1); Alkaline Phosphatase 96 U/L (38-126); Anion Gap 6 mmol/L (8-16); Aspartate Amino Transferase 19 U/L (14-36); Bilirubin,Total 0.3 mg/dL (0.2-1.3); Blood Urea Nitrogen 4 mg/dL (7-17); Calcium 9.1 mg/dL (8.4-10.2); Carbon Dioxide 26 mmol/L (22-30); Chloride 106 mmol/L (98-107); Estimated CRCL calculation 95 ml/min; Estimated Glomerular Filt Rate > 60; Glucose 104 mg/dL (65-110); Potassium 3.9 mmol/L (3.4-5.0); Sodium 138 mmol/L (137-145)
[2023-11-11 09:57] LABS: INR 0.9; Prothrombin Time 12.7 Seconds (11.1-14.7)
[2023-11-11 09:58] LABS: Partial Thromboplastin Time 28.8 SECONDS (22.3-36.8)
[2023-11-11 10:02] LABS: D Dimer < 0.27 ug/mL (<0.48)
[2023-11-11 10:07] LABS: Troponin I < 0.012 ng/mL (0.000-0.034)
[2023-11-11 10:23] LABS: Influenza A QL RT-PCR Negative (Negative); Influenza B QL RT-PCR Negative (Negative); RSV RNA, RT-PCR Negative (Negative); SARS-CoV-2 RNA PCR Negative (Negative)
[2023-11-11 10:34] LABS: Appearance Urine Clear (Clear); Bacteria Urine Rare /hpf; Bilirubin Urine Negative (Negative); Blood Urine Negative (Negative); Color Urine Yellow (Yellow); Glucose Urine UA Negative (Negative); Ketones Urine Negative (Negative); Leukocyte Esterase Ur Trace LEU/UL (Negative); Nitrate Urine Negative (Negative); Non Pathogenic Casts 0-2; Protein Urine Negative (Negative); RBC Urine 0-2 /hpf (0-2); Specific Grav Ur 1.007 (1.001-1.035); Squamous Epithelial Cell Urine None seen /hpf (Few); Urobilinogen Urine 0.2 mg/dL (<2.0); WBC Urine 0-5 /hpf
[2023-11-11 10:44] LABS: Add Urine Microscopic? YES
== END 2023-11-11 11:20 | disposition home or self-care (01) ==
PROVIDERS: Emergency Provider Nurse Practitioner Family
DX: R06.00 Dyspnea, unspecified (principal); Z20.822 Contact with and (suspected) exposure to COVID-19
CPT/HCPCS: 36415; 71046; 80053; 81001; 81025; 84484; 85025; 85380; 85610; 85730; 87637; 93005; 99284

== ENCOUNTER 2024-01-12 06:48 | Emergency (ER) | payer OTHER, SELFPAY ==
[2024-01-12] VITALS (9 sets, daily range): BP systolic 130–160; BP diastolic 99–109; PULSE 70–88; RESP 14–18; TEMP 36.6–36.9; O2SAT 98–100
--- NOTE | ~2024-01-12 | XR_ITS ---
EXAMINATION: XR chest 2V 01/12/2024 08:52 INDICATION: Shortness of breath for 2 weeks PROCEDURE: 2 view chest COMPARISON: Comparison to multiple prior studies sequentially, with oldest reviewed study dated 01/27. FINDINGS: The lungs are clear. The cardiomediastinal silhouette is within normal limits. There are no pleural effusions. There is no pneumothorax suspected. IMPRESSION: 1: NO ACUTE CARDIOPULMONARY DISEASE. Reviewed, dictated and finalized at location B.
--- NOTE | 2024-01-12 08:02 | ECG_ITS ---
SEE SCANNED COPY FOR CONFIRMED REPORT. MTDD
[2024-01-12] MEDS: IPRATROPIUM 0.5 MG/ALBUTEROL SULFATE 2.5 MG AMPUL.NEB 3 ML INHALATION (08:17)
[2024-01-12 08:28] LABS: Basophils Percent Auto 0.2 % (0.2-1.2); Eosinophils Absolute Auto 0.1 K/mm3 (0-0.3); Hematocrit 40.4 % (37.0-47.0); Hemoglobin 13.4 g/dL (12.0-15.0); Immature Granulocyte Absolute 0.03 K/mm3 (0.00-0.031); Immature Granulocyte Percent A 0.4 % (0-0.5); Lymphocytes Absolute Auto 2.04 K/mm3 (0.9-3.2); Lymphocytes Percent Auto 24.8 % (18.3-44.2); Mean Corpuscular HGB Conc 33.2 g/dl (32-36); Mean Corpuscular Hemoglobin 29.8 pg (26-34); Mean Corpuscular Volume 89.8 fl (80-100); Mean Platelet Volume 9.3 fl (7.4-10.4); Monocytes Absolute Auto 0.7 K/mm3 (0.1-0.6); Monocytes Percent Auto 8.4 % (2.6-8.5); Neutrophils Absolute Auto 5.4 K/mm3 (1.3-6.7); Neutrophils Percent Auto 65.2 % (45.5-73.1); Platelet Count Result 239 k/mm3 (150-375); Red Cell Distribution Width 12.4 % (11.5-14.5); White Blood Count 8.2 K/mm3 (4.5-10.0)
[2024-01-12 08:39] LABS: Alanine Aminotransferase 12 U/L (6-35); Albumin Level 4.6 g/dL (3.5-5.1); Alkaline Phosphatase 98 U/L (38-126); Anion Gap 8 mmol/L (4-12); Aspartate Amino Transferase 28 U/L (14-36); Bilirubin,Total 0.4 mg/dL (0.2-1.3); Blood Urea Nitrogen 4 mg/dL (7-17); Calcium 9.2 mg/dL (8.4-10.2); Carbon Dioxide 24 mmol/L (22-30); Chloride 108 mmol/L (98-107); Estimated CRCL calculation 102 ml/min; Estimated Glomerular Filt Rate > 60; Glucose 96 mg/dL (65-110); Potassium 3.6 mmol/L (3.4-5.0); Sodium 140 mmol/L (137-145)
--- NOTE | 2024-01-12 10:22 | ED.GENADULT ---
HPI - General Adult General Chief complaint: Unspecified Stated complaint: wheezes Time Seen by Provider: 01/12/24 07:06 History of Present Illness HPI narrative: Patient is a 33-year-old female with history of schizophrenia who presents ER with shortness of breath. She thinks she might have asthma and is wheezing. Worsening over last couple of days. No chest pain. No fevers or chills. She has had mild cough and mild sinus congestion. No alleviating factors. Related Data Allergies Allergy/AdvReac Type Severity Reaction Status Date / Time No Known Allergies Allergy Verified 01/12/24 06:59 Review of Systems Review of Systems: All systems reviewed & are unremarkable except as noted in HPI and below Constitutional: Constitutional: Reports no additional constitutional complaints ENT: Reports system reviewed and no additional complaints, except as documented Cardiovascular: Cardiovascular: Reports no additional cardiovascular complaints Respiratory: Respiratory: Reports no additional respiratory complaints [facility] Past Medical History Medical History Schizophrenia Surgical History Surgical History History of hysterectomy Social History Social History Substance use type: does not use Exam Narrative: GENERAL: Well-appearing, well-nourished, and in no acute distress. HEAD: Normocephalic, atraumatic. ENT: Mucous membranes moist. NECK: Supple. CHEST: Clear to auscultation. No respiratory distress. HEART: Regular rate and rhythm. Normal peripheral pulses. EXTREMITIES: Normal range of motion. No edema. SKIN: Warm, dry, no rash. NEURO: Alert and oriented x3. PSYCH: Flat affect, not responding to internal stimuli. Course Course Emergency Course: Discussed lab results and imaging results which are normal. Patient feels improved after breathing treatment the patient had normal lung sounds. Discharge with albuterol and Zyrtec. Vital Signs Vital signs: Vital Signs Temperature 98.5 F 01/12/24 06:48 Pulse Rate 75 01/12/24 06:48 Respiratory Rate 18 01/12/24 06:48 Blood Pressure 160/99 H 01/12/24 06:48 Pulse Oximetry 99 01/12/24 06:48 Oxygen Delivery Room Air 01/12/24 06:48 Temperature 98.3 F 01/12/24 09:30 Pulse Rate 70 01/12/24 09:30 Respiratory Rate 16 01/12/24 09:30 Blood Pressure 130/109 H 01/12/24 09:30 Pulse Oximetry 100 01/12/24 09:30 Oxygen Delivery Room Air 01/12/24 06:48 Medical Decision Making Vital Signs Vital Signs: Vital Signs Temperature 98.5 F 01/12/24 06:48 Pulse Rate 75 01/12/24 06:48 Respiratory Rate 18 01/12/24 06:48 Blood Pressure 160/99 H 01/12/24 06:48 Pulse Oximetry 99 01/12/24 06:48 Oxygen Delivery Room Air 01/12/24 06:48 Temperature 98.3 F 01/12/24 09:30 Pulse Rate 70 01/12/24 09:30 Respiratory Rate 16 01/12/24 09:30 Blood Pressure 130/109 H 01/12/24 09:30 Pulse Oximetry 100 01/12/24 09:30 Oxygen Delivery Room Air 01/12/24 06:48 Lab Data 01/12/24 08:18 01/12/24 08:18 Labs: Lab Results 01/12/24 Range/Units 08:18 WBC 8.2 (4.5-10.0) K/mm3 RBC 4.50 (4.2-5.4) M/mm3 Hgb 13.4 (12.0-15.0) g/dL Hct 40.4 (37.0-47.0) % MCV 89.8 (80-100) fl MCH 29.8 (26-34) pg MCHC 33.2 (32-36) g/dl RDW 12.4 (11.5-14.5) % Plt Count 239 (150-375) k/mm3 MPV 9.3 (7.4-10.4) fl Immature Gran % (Auto) 0.4 (0-0.5) % Neut % (Auto) 65.2 (45.5-73.1) % Lymph % (Auto) 24.8 (18.3-44.2) % [place] % (Auto) 8.4 (2.6-8.5) % Eos % (Auto) 1.0 (0-4.4) % Baso % (Auto) 0.2 (0.2-1.2) % Lymph # (Auto) 2.04 (0.9-3.2) K/mm3 [place] # (Auto) 0.7 H (0.1-0.6) K/mm3 Eos # (Auto) 0.1 (0-0.3) K/mm3 Baso # (Auto) 0.0 (0.0-0.1) K/mm3 Abs Immat Gran (auto) 0.03 (0.
== END 2024-01-12 11:09 | disposition home or self-care (01) ==
PROVIDERS: Emergency Provider Emergency Medicine
DX: R06.00 Dyspnea, unspecified (principal); F20.9 Schizophrenia, unspecified
CPT/HCPCS: 36415; 71046; 80053; 85025; 93005; 94640; 99283

== ENCOUNTER 2024-04-12 21:35 | Emergency (ER) | payer OTHER, SELFPAY ==
--- NOTE | ~2024-04-12 | CT_ITS ---
CT of the Abdomen and Pelvis: Indication: Abdominal pain Technique: 2.5 mm axial scans were obtained through the abdomen and pelvis following intravenous adm inistration of 80 cc of Omnipaque 350. Dose reduction technique was used on this scan by utilizing au tomated exposure control and iterative reconstruction technique. The dose-length product (DLP) was 11 18.90 mGy-cm. COMPARISON: 06/02/2023 Findings: Scans through the lung bases demonstrate minimal pleural effusions. The liver, spleen, pancreas, gallbladder, adrenals and kidneys are within normal limits. No evidence of aortic aneurysm. No lymphadenopathy. No bowel obstruction or bowel wall thickening. There is no evidence to suggest acute appendicitis. Images through the pelvis were performed. Urinary bladder unremarkable. No pelvic mass seen. Impression: Minimal pleural effusions, otherwise unremarkable exam. Reviewed, dictated and finalized at [facility]. Impression: Minimal pleural effusions, otherwise unremarkable exam.
--- NOTE | ~2024-04-12 | XR_ITS ---
Clinical Indication: Shortness of breath PA and lateral views of the chest: Comparison: 01/12/2024 Findings: The lungs are clear, without evidence of focal consolidation or pleural effusion. Cardiome diastinal silhouette is within normal limits. Bones and soft tissues are unremarkable. Impression: Normal chest. Reviewed, dictated and finalized at location . Impression: Normal chest.
[2024-04-12 22:51] VITALS: BP 129/94; PULSE 67; RESP 20; TEMP 36.3; O2SAT 100
[2024-04-13 01:33] VITALS: BP 133/99; PULSE 69; RESP 18; TEMP 36.6; O2SAT 100
--- NOTE | 2024-04-13 01:54 | ECG_ITS ---
Test Date: 2024-04-13 02:00:01 Measurements Intervals [place] Rate: 57 P: 0 [place]: 0 QRS: 12 QRSD: 82 T: 10 QT: 402 QTc: 394 Interpretive Statements BASELINE ARTIFACT, REDUCED ECG QUALITY SINUS BRADYCARDIA WITH SINUS ARRHYTHMIA NONSPECIFIC T-WAVE ABNORMALITY ABNORMAL RHYTHM ECG No previous ECG available for comparison Electronically Signed On 04-13-2024 11:28:56 CDT by Rene Parks M.D.
[2024-04-13 02:04] VITALS: PULSE 58
--- NOTE | 2024-04-13 02:04 | ECG_ITS ---
Test Date: 2024-04-13 02:27:44 Measurements Intervals [place] Rate: 76 P: 36 RI: 140 QRS: 5 QRSD: 91 T: 9 QT: 378 QTc: 427 Interpretive Statements SINUS RHYTHM LOW QRS VOLTAGE NONSPECIFIC T-WAVE ABNORMALITY ABNORMAL ECG Compared to ECG 04/13/2024 02:00:01 NO SIGNIFICANT CHANGE, ATRIAL RHYTHM IS CLEARLY SINUS Electronically Signed On 04-13-2024 11:30:39 CDT by Rene Parks M.D.
[2024-04-13 02:17] LABS: Basophils Percent Auto 0.2 % (0.2-1.2); Eosinophils Absolute Auto 0.1 K/mm3 (0-0.3); Eosinophils Percent Auto 1.1 % (0-4.4); Hematocrit 39.2 % (37.0-47.0); Hemoglobin 12.9 g/dL (12.0-15.0); Immature Granulocyte Absolute 0.02 K/mm3 (0.00-0.031); Immature Granulocyte Percent A 0.2 % (0-0.5); Lymphocytes Absolute Auto 2.64 K/mm3 (0.9-3.2); Mean Corpuscular HGB Conc 32.9 g/dl (32-36); Mean Corpuscular Hemoglobin 29.7 pg (26-34); Mean Corpuscular Volume 90.1 fl (80-100); Mean Platelet Volume 9.7 fl (7.4-10.4); Monocytes Absolute Auto 0.6 K/mm3 (0.1-0.6); Monocytes Percent Auto 7.4 % (2.6-8.5); Neutrophils Absolute Auto 4.7 K/mm3 (1.3-6.7); Neutrophils Percent Auto 58.1 % (45.5-73.1); Platelet Count Result 242 k/mm3 (150-375); Red Blood Count 4.35 M/mm3 (4.2-5.4); Red Cell Distribution Width 12.6 % (11.5-14.5)
[2024-04-13 02:21] VITALS: O2SAT 100
[2024-04-13 02:22] VITALS: BP 151/111; PULSE 62; RESP 16; TEMP 37; O2SAT 100
[2024-04-13 02:27] LABS: Alanine Aminotransferase 11 U/L (6-35); Albumin Level 4.4 g/dL (3.5-5.1); Alkaline Phosphatase 89 U/L (38-126); Anion Gap 9 mmol/L (4-12); Aspartate Amino Transferase 20 U/L (14-36); Bilirubin,Total 0.2 mg/dL (0.2-1.3); Blood Urea Nitrogen 5 mg/dL (7-17); Calcium 8.8 mg/dL (8.4-10.2); Carbon Dioxide 28 mmol/L (22-30); Chloride 101 mmol/L (98-107); Estimated CRCL calculation 89 ml/min; Estimated Glomerular Filt Rate > 60; Glucose 96 mg/dL (65-110); Potassium 3.8 mmol/L (3.4-5.0); Sodium 138 mmol/L (137-145)
[2024-04-13 03:26] LABS: BEDSIDEPREGUCG Negative
[2024-04-13 03:39] LABS: Bacteria Urine 1+ /hpf; Need Manual Microscopic Reviewed; Non Pathogenic Casts 0-2; Squamous Epithelial Cell Urine Few /hpf (Few); WBC Urine 0-5 /hpf (0-3)
[2024-04-13 03:41] LABS: Add Urine Microscopic? YES; Appearance Urine Clear (Clear); Blood Urine Trace-intact (Negative); Color Urine Yellow (Yellow); Glucose Urine UA Negative (Negative); Ketones Urine Negative (Negative); Protein Urine Negative (Negative); Specific Grav Ur <= 1.005 (1.010-1.020)
[2024-04-13 03:42] LABS: Bilirubin Urine Negative (Negative); Leukocyte Esterase Ur Trace LEU/UL (Negative); Nitrate Urine Negative (Negative); Urobilinogen Urine 0.2 mg/dL (0.2-1.0)
[2024-04-13 04:08] VITALS: BP 142/99; PULSE 70; RESP 12; TEMP 36.6; O2SAT 100
[2024-04-13 05:24] VITALS: BP 135/98; PULSE 60; RESP 12; TEMP 36.6; O2SAT 100
--- NOTE | 2024-04-13 05:31 | PC.NURSE ---
Patient's heart rate dropped down to lower 50s. Notified EDP Dr. Ruiz.
--- NOTE | 2024-04-13 05:54 | ED.GENADULT ---
HPI - General Adult General Chief complaint: Shortness of Breath/Dyspnea Stated complaint: dyspnea Time Seen by Provider: 04/13/24 02:23 History of Present Illness HPI narrative: Patient is a 33-year-old female who presents emergency department with chief complaint of shortness of breath. Patient reports she has history of asthma and reports he has been wheezing this morning patient does have prior history of anxiety and depression. The patient also reports been having pain in her lower abdomen patient reports no nausea no vomiting no diarrhea. Related Data Allergies Allergy/AdvReac Type Severity Reaction Status Date / Time No Known Allergies Allergy Verified 04/12/24 22:57 Review of Systems Review of Systems: A 10 system review of systems was completed on the patient and is negative except for what is stated in the HPI. Nursing and ancillary documentation was reviewed. PMFSH Past Medical History Medical History Schizophrenia Surgical History Surgical History History of hysterectomy Social History Social History Substance use type: does not use Exam Narrative: GENERAL: Well-appearing, well-nourished, and in no acute distress. HEAD: Normocephalic, atraumatic. EYES: PERRLA and EOMI. ENT: Nares clear, no rhinorrhea or epistaxis. Mucous membranes moist. NECK: Supple. CHEST: Clear to auscultation. No respiratory distress. HEART: Regular rate and rhythm. No murmur heard. Normal peripheral pulses. ABDOMEN: Soft, nontender, nondistended, normal active bowel sounds. EXTREMITIES: Normal range of motion. No edema. SKIN: Warm, dry, no rash. NEURO: No focal deficits. Alert and oriented x3. PSYCH: Normal mood and affect. Course Vital Signs Vital signs: Vital Signs Temperature 36.3 C L 04/12/24 22:51 Pulse Rate 67 04/12/24 22:51 Respiratory Rate 20 04/12/24 22:51 Blood Pressure 129/94 H 04/12/24 22:51 Pulse Oximetry 100 04/12/24 22:51 Oxygen Delivery Room Air 04/12/24 22:51 Temperature 36.6 C 04/13/24 05:24 Pulse Rate 60 04/13/24 05:24 Respiratory Rate 12 04/13/24 05:24 Blood Pressure 135/98 H 04/13/24 05:24 Pulse Oximetry 100 04/13/24 05:24 Oxygen Delivery Room Air 04/13/24 02:22 Medical Decision Making MDM Narrative Medical decision making narrative: Differential diagnosis includes intra-abdominal infection, pneumonia, asthma exacerbation, viral illness Laboratory studies were reviewed no evidence of UTI no evidence of intra-abdominal infection. CT scan showed no acute intra-abdominal pathology Chest x-ray showed no focal infiltrate no pneumothorax Vital Signs Vital Signs: Vital Signs Temperature 36.3 C L 04/12/24 22:51 Pulse Rate 67 04/12/24 22:51 Respiratory Rate 20 04/12/24 22:51 Blood Pressure 129/94 H 04/12/24 22:51 Pulse Oximetry 100 04/12/24 22:51 Oxygen Delivery Room Air 04/12/24 22:51 Temperature 36.6 C 04/13/24 05:24 Pulse Rate 60 04/13/24 05:24 Respiratory Rate 12 04/13/24 05:24 Blood Pressure 135/98 H 04/13/24 05:24 Pulse Oximetry 100 04/13/24 05:24 Oxygen Delivery Room Air 04/13/24 02:22 Lab Data 04/13/24 02:07 04/13/24 02:07 Labs: Lab Results 04/13/24 04/13/24 04/13/24 Range/Units 02:07 03:16 03:24 WBC 8.0 (4.5-10.0) K/mm3 RBC 4.35 (4.2-5.4) M/mm3 Hgb 12.9 (12.0-15.0) g/dL Hct 39.2 (37.0-47.0) % MCV 90.1 (80-100) fl MCH 29.7 (26-34) pg MCHC 32.9 (32-36) g/dl RDW 12.6 (11.5-14.5) % Plt Count 242 (150-375) k/mm3 MPV 9.7 (7.4-10.4) fl Immature Gran % (Auto) 0.2 (0-0.5) % Neut % (Auto) 58.1 (45.5-73.1) % Lymph % (Auto) 33.0 (18.3-44.2) % [place] % (Auto) 7.4 (2.6-8.5) % Eos % (Auto) 1.
== END 2024-04-13 06:47 | disposition home or self-care (01) ==
PROVIDERS: Emergency Provider Emergency Medicine
DX: J45.901 Unspecified asthma with (acute) exacerbation (principal); R10.9 Unspecified abdominal pain
CPT/HCPCS: 36415; 71046; 74177; 80053; 81001; 81025; 85025; 93005; 95864; 99284; Q9967

== ENCOUNTER 2024-05-11 00:20 | Emergency (ER) | payer OTHER, SELFPAY ==
--- NOTE | ~2024-05-11 | XR_ITS ---
Clinical Indication: Shortness of breath PA and lateral views of the chest: Comparison: 04/13/2024 Findings: The lungs are clear, without evidence of focal consolidation or pleural effusion. Cardiome diastinal silhouette is within normal limits. Bones and soft tissues are unremarkable. Impression: Normal chest. Reviewed, dictated and finalized at location . Impression: Normal chest.
[2024-05-11 00:20] VITALS: BP 148/98; PULSE 78; RESP 14; TEMP 37.1; O2SAT 99
--- NOTE | 2024-05-11 00:25 | ECG_ITS ---
Test Date: 2024-05-11 00:31:06 Measurements Intervals [place] Rate: 79 P: 23 [place]: 145 QRS: 0 QRSD: 78 T: -10 QT: 360 QTc: 413 Interpretive Statements SINUS RHYTHM LOW QRS VOLTAGE NONSPECIFIC T-WAVE ABNORMALITY ABNORMAL ECG Compared to ECG 04/13/2024 02:27:44 NO DIFFERENCE Electronically Signed On 05-11-2024 07:37:17 CDT by Rene Parks M.D.
[2024-05-11 00:35] VITALS: O2SAT 100
[2024-05-11 00:35] LABS: Basophils Percent Auto 0.3 % (0.2-1.2); Eosinophils Absolute Auto 0.1 K/mm3 (0-0.3); Hematocrit 38.1 % (37.0-47.0); Immature Granulocyte Absolute 0.03 K/mm3 (0.00-0.031); Immature Granulocyte Percent A 0.3 % (0-0.5); Lymphocytes Absolute Auto 3.42 K/mm3 (0.9-3.2); Mean Corpuscular HGB Conc 34.1 g/dl (32-36); Mean Corpuscular Hemoglobin 30.5 pg (26-34); Mean Corpuscular Volume 89.4 fl (80-100); Mean Platelet Volume 9.7 fl (7.4-10.4); Monocytes Absolute Auto 0.8 K/mm3 (0.1-0.6); Neutrophils Absolute Auto 5.7 K/mm3 (1.3-6.7); Neutrophils Percent Auto 56.4 % (45.5-73.1); Platelet Count Result 235 k/mm3 (150-375); Red Blood Count 4.26 M/mm3 (4.2-5.4); Red Cell Distribution Width 12.5 % (11.5-14.5); White Blood Count 10.1 K/mm3 (4.5-10.0)
--- NOTE | 2024-05-11 00:37 | ED.SOB ---
HPI - SOB/Dyspnea General Chief Complaint: Shortness of Breath/Dyspnea Stated Complaint: sob x 10 min, hx asthma, inhaler out Time Seen by Provider: 05/11/24 00:27 Source: patient Mode of arrival: ambulatory Limitations: no limitations History of Present Illness HPI Narrative: This is a 33-year-old female with PMH of schizophrenia who presents to the ED via EMS for chief complaint of wheezing and dyspnea. Reports that she may be having an asthma exacerbation. She recently ran out of her inhalers. She reports that she is feeling improved after getting a breathing treatment EN route. Denies chest pain, fevers, chills. Endorses mild cough. Related Data Allergies Allergy/AdvReac Type Severity Reaction Status Date / Time No Known Allergies Allergy Verified 04/12/24 22:57 Review of Systems Review of Systems: All systems as dictated in HPI [facility] Past Medical History Medical History Schizophrenia Surgical History Surgical History History of hysterectomy Social History Social History Substance use type: does not use Exam Narrative: GENERAL: Well-appearing, well-nourished, and in no acute distress. HEAD: Normocephalic, atraumatic. EYES: PERRLA and EOMI. ENT: Nares clear, no rhinorrhea or epistaxis. Mucous membranes moist. Oropharynx without tonsillar hypertrophy exudate or other lesions. NECK: Supple. No adenopathy or masses. CHEST: No respiratory distress. Clear to auscultation. No wheezes rales or rhonchi. 99% room air HEART: Regular rate and rhythm. No murmur heard. Normal peripheral pulses. ABDOMEN: Soft, nontender, nondistended, normal active bowel sounds. MSK: Normal range of motion. No edema. SKIN: Warm, dry, no rash. NEURO: Alert and oriented x4. No focal deficits. PSYCH: Normal mood and affect. Course Vital Signs Vital signs: Vital Signs Temperature 98.8 F 05/11/24 00:20 Pulse Rate 78 05/11/24 00:20 Respiratory Rate 14 05/11/24 00:20 Blood Pressure 148/98 H 05/11/24 00:20 Pulse Oximetry 99 05/11/24 00:20 Oxygen Delivery Room Air 05/11/24 00:20 Temperature 98.8 F 05/11/24 00:20 Pulse Rate 78 05/11/24 00:20 Respiratory Rate 14 05/11/24 00:20 Blood Pressure 148/98 H 05/11/24 00:20 Pulse Oximetry 99 05/11/24 00:20 Oxygen Delivery Room Air 05/11/24 00:20 MDM - SOB/Dyspnea MDM Narrative Medical decision making narrative: This is a 33-year-old female who presents to the ED for chief complaint of shortness of breath with history of asthma. She has run out of her inhalers. Vitals are normal. She is actually feeling much better after arrival due to EMS giving her breathing treatment EN route. Chest x-ray is unchanged and appears overall normal. Breath sounds are normal. She is not having any respiratory distress. Lab work unremarkable. Refills for inhalers were given Pt will be discharged in stable condition. Return precautions given and supportive measures discussed. Pt is understanding and agreeable with plan for discharge and follow-up with PCP. Lab Data 05/11/24 00:27 05/11/24 00:27 Labs: Lab Results 05/11/24 Range/Units 00:27 WBC 10.1 H (4.5-10.0) K/mm3 RBC 4.26 (4.2-5.4) M/mm3 Hgb 13.0 (12.0-15.0) g/dL Hct 38.1 (37.0-47.0) % MCV 89.4 (80-100) fl MCH 30.5 (26-34) pg MCHC 34.1 (32-36) g/dl RDW 12.5 (11.5-14.5) % Plt Count 235 (150-375) k/mm3 MPV 9.7 (7.4-10.4) fl Immature Gran % (Auto) 0.3 (0-0.5) % Neut % (Auto) 56.4 (45.5-73.1) % Lymph % (Auto) 34.0 (18.3-44.2) % Burt % (Auto) 8.0 (2.6-8.5) % Eos % (Auto) 1.0 (0-4.4) % Baso % (Auto) 0.3 (0.2-1.2) % Lymph # (Auto) 3.42 H (0.9-3.2) K/mm3 Burt # (Auto) 0.8 H (0.1-0.6) K/mm3 Eos # (Auto) 0.1 (
[2024-05-11] MEDS: predniSONE 20 MG TABLET 40 MG PO (00:54)
[2024-05-11 00:57] LABS: Alanine Aminotransferase 13 U/L (6-35); Albumin Level 4.2 g/dL (3.5-5.1); Alkaline Phosphatase 91 U/L (38-126); Anion Gap 11 mmol/L (4-12); Aspartate Amino Transferase 24 U/L (14-36); Bilirubin,Total 0.2 mg/dL (0.2-1.3); Blood Urea Nitrogen 4 mg/dL (7-17); Calcium 8.9 mg/dL (8.4-10.2); Carbon Dioxide 25 mmol/L (22-30); Chloride 102 mmol/L (98-107); Estimated CRCL calculation 87 ml/min; Estimated Glomerular Filt Rate > 60; Glucose 111 mg/dL (65-110); Potassium 3.5 mmol/L (3.4-5.0); Sodium 138 mmol/L (137-145)
[2024-05-11 01:30] VITALS: BP 138/90; PULSE 77; RESP 15; O2SAT 100
== END 2024-05-11 01:35 | disposition home or self-care (01) ==
LOC: ANHED 00:53
PROVIDERS: Emergency Medicine; Emergency Provider Physician Assistant
DX: J45.909 Unspecified asthma, uncomplicated (principal); Z90.710 Acquired absence of both cervix and uterus; R94.31 Abnormal electrocardiogram [ECG] [EKG]
CPT/HCPCS: 36415; 71046; 80053; 85025; 93005; 99283; J7512

== ENCOUNTER 2024-05-31 20:23 | Emergency (ER) | payer OTHER, SELFPAY ==
--- NOTE | ~2024-05-31 | XR_ITS ---
XR chest 2V Ordering provider: Delma Jaramillo PA-C History: 33 years Female with . sob cough . Comparison: May 11, 2024 FINDINGS: MEDIASTINUM: The cardiac silhouette is not enlarged. LUNGS: No infiltrates, effusions or pneumothorax. OTHER: No free air under the diaphragm. IMPRESSION: No acute cardiopulmonary pathology. Reviewed, dictated and finalized at location A.
--- NOTE | ~2024-05-31 | CT_ITS ---
CT abdomen pelvis w con Ordering provider: Delma Jaramillo PA-C History: 33 years Female with . lower abd pain . Comparison: None. Technique: CT abdomen and pelvis with IV and without oral contrast. Automated exposure control and it erative reconstruction technique were employed. The dose-length product was 803.99 mGy-cm. 100 mL Omn ipaque 350 was given IV. Findings: VISUALIZED LOWER CHEST: Trace of pleural effusion versus pleural thickening in the lower lobes chainstitch elastic attacher iorly. Possible tiny nodule versus averaging from adjacent soft tissue in the first image of the lung bases. UPPER ABDOMINAL ORGANS: Liver: Tiny cyst in the right lower Gallbladder: Normal. Spleen: Normal. Stomach/duodenum: Normal. Pancreas: Normal. Adrenals: Normal. Kidneys: Normal. PELVIC ORGANS: The bladder is normal. BOWEL AND MESENTERY: Colon: No evidence of diverticulitis. Normal appendix. Small Bowel: Normal. No obstruction. Peritoneum/mesentery: No free air or free fluid. No mesenteric lymphadenopathy. RETROPERITONEUM: Normal aorta. No retroperitoneal lymphadenopathy. MUSCULOSKELETAL: Superficial soft tissues: Small fat-containing abdominal wall hernia. Otherwise, The superficial soft tissues are normal. Bones: Normal spine. IMPRESSION: 1. No evidence of appendicitis, diverticulitis or intestinal obstruction. No renal stones. 2. Small fat containing anterior abdominal wall hernia. 3. Bilateral trace of pleural effusion versus pleural thickening seen posteriorly. Reviewed, dictated and finalized at location A. IMPRESSION: 1. No evidence of appendicitis, diverticulitis or intestinal obstruction. No r enal stones. 2. Small fat containing anterior abdominal wall hernia. 3. Bilateral trace of pleural effusion versus pleural thickening seen posterio rly.
[2024-05-31 20:52] VITALS: BP 152/110; PULSE 83; RESP 20; TEMP 36.8; O2SAT 100
[2024-05-31 21:27] LABS: Basophils Percent Auto 0.3 % (0.2-1.2); Eosinophils Absolute Auto 0.1 K/mm3 (0-0.3); Eosinophils Percent Auto 1.2 % (0-4.4); Hematocrit 39.6 % (37.0-47.0); Hemoglobin 13.4 g/dL (12.0-15.0); Immature Granulocyte Absolute 0.02 K/mm3 (0.00-0.031); Immature Granulocyte Percent A 0.2 % (0-0.5); Lymphocytes Absolute Auto 3.09 K/mm3 (0.9-3.2); Lymphocytes Percent Auto 33.9 % (18.3-44.2); Mean Corpuscular HGB Conc 33.8 g/dl (32-36); Mean Corpuscular Volume 88.6 fl (80-100); Mean Platelet Volume 9.4 fl (7.4-10.4); Monocytes Absolute Auto 0.7 K/mm3 (0.1-0.6); Monocytes Percent Auto 7.4 % (2.6-8.5); Neutrophils Absolute Auto 5.2 K/mm3 (1.3-6.7); Platelet Count Result 244 k/mm3 (150-375); Red Blood Count 4.47 M/mm3 (4.2-5.4); Red Cell Distribution Width 12.7 % (11.5-14.5); White Blood Count 9.1 K/mm3 (4.5-10.0)
[2024-05-31 21:32] LABS: BEDSIDEPREGUCG Negative (Negative)
[2024-05-31 21:37] LABS: Add Urine Microscopic? NO; Appearance Urine Clear (Clear); Bilirubin Urine Negative (Negative); Blood Urine Negative (Negative); Color Urine Yellow (Yellow); Glucose Urine UA Negative (Negative); Ketones Urine Negative (Negative); Leukocyte Esterase Ur Negative LEU/UL (Negative); Nitrate Urine Negative (Negative); Protein Urine Negative (Negative); Specific Grav Ur 1.007 (1.001-1.035); Urobilinogen Urine 0.2 mg/dL (<2.0)
[2024-05-31 21:37] LABS: Alanine Aminotransferase 13 U/L (6-35); Albumin Level 4.3 g/dL (3.5-5.1); Alkaline Phosphatase 91 U/L (38-126); Anion Gap 12 mmol/L (4-12); Aspartate Amino Transferase 23 U/L (14-36); Bilirubin,Total 0.2 mg/dL (0.2-1.3); Blood Urea Nitrogen 3 mg/dL (7-17); Calcium 8.6 mg/dL (8.4-10.2); Carbon Dioxide 23 mmol/L (22-30); Chloride 103 mmol/L (98-107); Estimated CRCL calculation 98 ml/min; Estimated Glomerular Filt Rate > 60; Glucose 112 mg/dL (65-110); Lipase 80 U/L (23-300); Potassium 3.3 mmol/L (3.4-5.0); Sodium 138 mmol/L (137-145)
[2024-05-31 22:03] LABS: Influenza A QL RT-PCR Negative (Negative); Influenza B QL RT-PCR Negative (Negative); RSV RNA, RT-PCR Negative (Negative); SARS-CoV-2 RNA PCR Negative (Negative)
[2024-05-31] MEDS: IPRATROPIUM BR 0.02% INH SOLN 0.5 MG/2.5 ML VIAL INHALATION (22:53)
[2024-05-31 22:57] VITALS: PULSE 82; RESP 18
[2024-05-31] MEDS: LEVALBUTEROL NEB 1.25 MG/3 ML INHALATION (22:57)
--- NOTE | 2024-05-31 23:02 | ED.ABDPAIN ---
HPI - Abdominal Pain General Chief Complaint: Abdominal Pain Stated Complaint: abd pain Time Seen by Provider: 05/31/24 21:12 Source: patient and old records reviewed Mode of arrival: ambulatory Limitations: no limitations History of Present Illness HPI narrative: Patient is a 33-year-old female who presents the ED with multiple complaints. Patient has history of paranoid schizophrenia, poor historian. She reports over the last few days, she has been having some shortness of breath, wheezing. Reports history of asthma. Has been using her inhaler with some improvement. Reports recent cough, congestion. Denies fevers, CP. Patient also reported having lower abdominal pain for the past few days. Denies N/V/D, dysuria, hematuria. Related Data Allergies Allergy/AdvReac Type Severity Reaction Status Date / Time No Known Allergies Allergy Verified 05/31/24 21:02 Review of Systems Review of Systems: All systems reviewed & are unremarkable except as noted in HPI. All systems reviewed & are unremarkable except as noted in HPI and below PMFSH Past Medical History Medical History Schizophrenia Surgical History Surgical History History of hysterectomy Social History Social History Substance use type: does not use Exam Narrative: GENERAL: Well appearing, obese with BMI of 31.6, non-toxic, in no acute distress. HEAD: Normocephalic, atraumatic. RESPIRATORY: Airway patent, respirations nonlabored. Clear to auscultation bilaterally, no rales, rhonchi, wheezing. No significant focal lung sounds. CARDIOVASCULAR: Regular rate and rhythm without murmurs, rubs, or gallops. ABDOMINAL: Soft, nontender, nondistended. Normoactive BS. MUSCULOSKELETAL: Moves all extremities. No gross deformities. SKIN: Warm, dry, normal color. NEURO: Alert, answers questions appropriately. Speech clear. Cranial nerves II-XII grossly intact. Steady gait. No ataxic movements. PSYCHIATRIC: Somewhat withdrawn, flat affect. Normal interaction. Course Vital Signs Vital signs: Vital Signs Temperature 98.2 F 05/31/24 20:52 Pulse Rate 83 05/31/24 20:52 Respiratory Rate 20 05/31/24 20:52 Blood Pressure 152/110 H 05/31/24 20:52 Pulse Oximetry 100 05/31/24 20:52 Oxygen Delivery Room Air 05/31/24 20:52 Temperature 98.2 F 05/31/24 20:52 Pulse Rate 79 06/01/24 00:40 Respiratory Rate 16 06/01/24 00:40 Blood Pressure 156/104 H 06/01/24 00:40 Pulse Oximetry 100 06/01/24 00:40 Oxygen Delivery Room Air 05/31/24 20:52 MDM - Abdominal Pain MDM Narrative Medical decision making narrative: Patient presented to ED with wheezing, concern for asthma exacerbation. Also reporting lower abdominal pain. Vital signs are stable upon arrival. Patient is in no acute distress. Oxygen 100% on room air. She does not appear to have any respiratory compromise. Lungs are relatively clear on auscultation. Basic laboratory studies are unremarkable. K with low at 3.3. Oral replacement given. Otherwise stable electrolytes. Stable kidney function. UA is clear. Viral swabs are negative. Chest x-ray is clear. Patient denying any chest pain. Low suspicion for PE. She is PERC negative. No evidence of DVT on exam. CT abdomen/pelvis was obtained and unremarkable. Showing abdominal hernia. No other significant findings. Patient will be discharged at this time. She has inhaler that I advised her to continue to use. Otherwise she has been hemodynamically stable and feel she is safe for D/C home. Given strict return precautions. She agrees with plan. Discharged in stable condition. Medical Records Attestation: I reviewed the patient's medical records. Lab Data Attestation: I reviewed the patient's lab results. 05/31/24 21:19
[2024-05-31 23:04] VITALS: PULSE 80; RESP 18
[2024-05-31] MEDS: POTASSIUM CHLORIDE 20 MEQ ER TABLET PO (23:14)
[2024-06-01 00:40] VITALS: BP 156/104; PULSE 79; RESP 16; O2SAT 100
== END 2024-06-01 00:41 | disposition home or self-care (01) ==
PROVIDERS: Emergency Medicine; Emergency Provider Physician Assistant
DX: J45.909 Unspecified asthma, uncomplicated (principal); R10.30 Lower abdominal pain, unspecified; Z20.822 Contact with and (suspected) exposure to COVID-19; F20.0 Paranoid schizophrenia; Z90.710 Acquired absence of both cervix and uterus; K46.9 Unspecified abdominal hernia without obstruction or gangrene
CPT/HCPCS: 36415; 71046; 74177; 80053; 81003; 81025; 83690; 85025; 87637; 94640; 99284; A9270; Q9967

== ENCOUNTER 2024-06-12 11:42 | Emergency (ER) | payer OTHER, SELFPAY ==
[2024-06-12 11:44] VITALS: BP 151/98; PULSE 96; RESP 16; TEMP 36.8; O2SAT 100
--- NOTE | 2024-06-12 16:08 | PC.NURSE ---
pt left d/t wait time
== END 2024-06-12 18:20 | disposition left against medical advice (07) ==
LOC: ANHED 16:24
DX: Z53.21 Procedure and treatment not carried out due to patient leaving prior to being seen by health care provider (principal)
CPT/HCPCS: 99199

== ENCOUNTER 2024-11-15 10:50 | Emergency (ER) | payer OTHER, SELFPAY ==
[2024-11-15 11:55] VITALS: BP 150/99; PULSE 98; RESP 18; TEMP 36.6; O2SAT 100
[2024-11-15 11:57] VITALS: O2SAT 100
--- OUTSIDE RECORDS SUMMARY | 2024-11-15 12:27 | XMS_ITS | Clinical Summary ---
Author Organization [facility] Address [address] [place] [address] Care Team Providers Care Toll Gate Tender Name Role Phone Rene Oliveros MD Unavailable [phone] No, Physician Primary Care Provider [phone] Allergies No known active allergies Medications haloperidoL (HALDOL) 5 mg tabletIndicatio ns:Schizophreni a 5-10 mg 2 (two) times a day 5 mg in am 10 mg hs Active traZODone (DESYREL) 150 mg tabletIndicatio ns:insomnia associated with depression Take 150 mg by mouth nightly 1 Active benztropine (COGENTIN) 1 mg tablet Take 1 mg by mouth every morning 1 Active multivitamin capsuleIndicati ons:gummy Take 1 capsule by mouth every morning Active tetrahydrozolin e HCl (VISINE OPHT) Administer into affected eye(s) as needed Active acetaminophen 500 mg capsuleIndicati ons:Pain Take 2 capsules (1,000 mg total) by mouth every 6 (six) hours 30 tablet 3 1 Active ibuprofen (ADVIL,MOTRIN) 600 mg tabletIndicatio ns:Pain,Postope rative Acute Pain Take 1 tablet (600 mg total) by mouth every 6 (six) hours 30 tablet 3 1 Active gabapentin (NEURONTIN) 300 mg capsuleIndicati ons:Pain Take 1 capsule (300 mg total) by mouth 2 (two) times a day 60 capsule 1 Active Active Problems Problem Noted Date Diagnosed Date Uterine leiomyoma 10/14/2020 Overview (12/19/2020): 11/04/20: MARVIN/BS for enlarged fibroid uterus Post-op visit 11/21/20: Meeting postop milestones. Reviewed activity restrictions. Reviewed benign pathology. Fleming removed. Recommend interdry. RTC 4 weeks for cuff check. Quality Control Chemist Onc 6 week postop visit 12/19/20: Cuff well healed. Released from activity restrictions. Okay for continued follow up with primary. Pelvic mass 08/27/2020 Overview (10/08/2020): - Patient with protuberant abdomen noted by psychiatrist - Patient with intermenstrual bleeding, constipation, otherwise asymptomatic - CT A/P 07/19/20 w/ hypoattenuating lesion arising from ovary or uterus - repeat CT A/P on 10/07/20: Large abdominal/pelvic mass with separate mass more inferiorly, both of which appear to originate from the myometrium and have imaging features most consistent with leiomyomas. - discussed future fertility options with patient and mother. Given risks for attempting myomectomy with fibroid of this size, decision was made to proceed with ex lap, MARVIN, and salpingectomy with any other indicated procedure. - patient accepts and reiterates consequences of no future fertility with hysterectomy. States risks and benefits using teachback technique - risks including bleeding, infection, and damage to surrounding organs were reviewed with patient Plan: -Prep for case to be placed -will obtain preop COVID and schedule for IPAP -Plan for ex lap and MARVIN with salpingectomy -will schedule COURTNEY Hypertension Overview (08/27/2020): Patient w/o prior diagnosis BP 160/109 at IGY tumor clinic visit Plan: Strongly encouraged follow up with primary care doctor COURTNEY Subclinical hypothyroidism Overview (12/19/2020): TSH at OSH 7.4 during acute psychotic episode T4 1.14 (wnl), patient asymptomatic 08/2020: TSH 5.92 (elevated), T4 1.24 (wnl) Plan: Encourage follow up with PCP Schizophrenia Overview (12/19/2020): Patient with controlled psychosis on haldol decanoate Per mother (present during initial interview) she (the mother) keeps up with patients health records and helps her make decisions Confirms patient is her own POA and signs her own medicolegal paperwork Plan: Encouraged continued psychiatric care Surgical History Surgery Date Site/Laterality Comments ABSCESS DRAINAGE Left Gluteal UMBILICAL HERNIA REPAIR Medical History Medical History Date Comments Hypertension Schizophrenia (HCC) Subclinical hypothyroidism Leiomyoma Depression Family History Medical History Relation Name Comments Anesthesia problems Neg Hx Social History Tobacco Use Types Packs/Day Years Used Date Smoking Tobacco: Never Smokeless Tobacco: Never Alcohol Use Standard Drinks/Week Comments Yes 1 (1 standard drink = 0.6 oz pur e alcohol) yearly Comments No Sex and Gender Information Value Date Recorded Sex Assigned at Not on file Legal 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 Gender Identity Not on file Sexual Orientation Not on file Obstetrics History Para Term AB IAB SAB Ectopic Multiple Livin g Live Births 0 0 0 0 0 0 0 0 0 0 0 Last Filed Vital Signs Vital Sign Reading Time Taken Comments Blood Pressure 141/96 01/13/2024 11:07 PM CDT Pulse 77 01/13/2024 11:07 PM CDT Temperature 36.3 C (97.4 F) 01/13/2024 11:07 PM CDT Respiratory Rate 16 01/13/2024 11:07 PM CDT Oxygen Saturation 98% 01/13/2024 11:07 PM CDT Inhaled Oxygen Concentration - - Weight 91.3 kg (201 lb 4.5 oz) 01/13/2024 11:07 PM CDT Height 157.5 cm (5' 2 ) 01/13/2024 11:07 PM CDT Body Mass Index 36.81 01/13/2024 11:07 PM CDT Plan of Treatment Health Maintenance Due Date Last Done Comments Depression Screening 1989 Hepatitis C Screening 1989 Varicella Vaccines (1 of 2 - 13+ 2-dose series) 2002 Hepatitis B Screening 2007 Regular Well Visit/Exam 18-64 2007 Pneumococcal vaccine <65 (1 of 2 - PCV) 2008 Cervical Cancer Screening 08/27/2021 08/27/2020 Covid-19 Vaccine (2 - 2023-2 5 season) 2024 02/11/2021 Influenza Vaccine (#1) 2024 , 07/20/2020, 10/02/2015 DTaP/Tdap/Td Vaccine (2 - Td or Tdap) 10/02/2025 10/02/2015 HPV Vaccines Aged Out No longer eligi ble based on patient's age to complete this topic Procedures Procedure Name Priority Date/Time Associated Diagnosis Comments PAP AND HIGH RISK HPV, REFLEX TO GENOTYPING Routine 08/27/2020 3:55 PM CUTTER HELPER from Last 3 Months or Most Recently Relevant to Health Maintenance Results * Pap and High Risk HPV, reflex to Genotyping (08/27/2020 3:55 PM CUTTER HELPER) 08/27/2020 3:55 PM CUTTER HELPER 08/27/2020 5:19 PM CUTTER HELPER [facility] - 09/03/2020 12:33 PM CUTTER HELPER EPIC results best viewed via link to PDF [facility]ology [place], [place] [id number] CYTOPATHOLOGY REPORT FINAL Patient Name: KRYSTAL ARMIJO Gender: F : 1990 (Age: 29) Address: [address] [place] [address] Hospital #: [id number] Service: TELECOMMUNICATION TOWER TECHNICIAN Location: [facility] Patient Type: [facility] Ancillary Taken: 08/27/2020 Received: 08/27/2020 Accessioned: 08/28/2020 Reported: 09/03/2020 Physician(s): Ld Villarreal M.D. FINAL INTERPRETATION SOURCE OF SPECIMEN: Liquid based Thin Prep pap with HPV STATEMENT OF ADEQUACY: - Satisfactory for evaluation - Endocervical cells/transformation zone sample absent GENERAL CATEGORY: - Negative for squamous intraepithelial lesion or malignancy Comments HPV Result: NEGATIVE for high risk types of Human Papilloma Virus (HPV) RNA This probe detects the presence of HPV types: 16, 18, 31, 33, 35, 39, 45, 51, 52, 56, 58, 59, 66 and 68. This HPV test was performed at [facility] in [place], [place] utilizing the Gen-Probe Aptima assay. 09/03/2020 12:33 CAMILO Springer(ASCP) Report Electronically Reviewed and Signed Out By Adelina Tabares M.S.,CAMILO(ASCP) 09/03/2020 12:33:40 Cervicovaginal Cytology (Pap Test) Disclaimer: The Pap test is a screening test used to detect cervical cancer and its precursors; it is not a diagnostic procedure. False negative and false positive results do occur. Pap test results should be interpreted in the context of pertinent clinical information and biopsy results as indicated. Gross Description A. Liquid based Thin Prep pap with HPV: Cervical/vaginal - Screening ThinPrep with HPV Clinical Diagnosis and History Last Menstrual Period: current The patient is a 29 year old woman with pelvic mass. The HPV test was performed by [facility], [address] [place] [address]. Report Images and scanned documents, if included only viewable in PDF version The performance characteristics of some immunohistochemical stains, in-situ hybridization and fluorescence in-situ hybridization tests and immunophenotyping by flow cytometry cited in this report (if any) were determined by the Surgical Pathology Department at [facility] as part of an ongoing principal quality engineer program and in compliance with federally mandated regulations drawn from the Clinical Laboratory Improvement Act of 1988 (CLIA '88). Some of these tests rely on the use of analyte specific reagents and are subject to specific labeling requirements by the US Food and Drug Administration. Such diagnostic tests may only be performed in a facility that is certified by the Department of Health and Human Services as a high complexity laboratory under CLIA '88. The FDA has determined that such clearance or approval is not necessary. This test is used for clinical purposes. It should not be regarded as investigational or for research. Nevertheless, federal rules concerning the medical use of analyte specific reagents require that the following disclaimer be attached to the report: This test was developed and its performance characteristics determined by the Surgical Pathology Department of [facility]. It has not been cleared or approved by the U. S. Food and Drug Administration. 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
--- OUTSIDE RECORDS SUMMARY | 2024-11-15 12:27 | XMS_ITS ---
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 time P reventative Health and Wellness follow-up: Action Plans for Clinical Quality Measures: H IV Screening: D iscussed need for HIV screening. Patient declined. . I nfluenza Immunization: Influenza Immunization Screening Questionnaire H as fever or is ill? N o . H as had influenza immunization in past? Y es .. H ad serious reaction to influenza immunization in past N o .. H ad reaction to eggs or egg products? N o .. H ad Guillain-Beardsley Syndrome (GBS)? N o .. H as an allergy to Thimerosal or mercury products? N o .. R esult of clinical decision regarding administering immunization B ased on questionnaire answers, can administer immunization .. V erbal Consent given: P natanael provided verbal consent. .. Recipient Category I s the patient a [employer] employee? N o . V accine recipient is an established [employer] patient? Y es H as patient received vaccine(s) from [facility] in the past? Y es W as The Patient Educated On This Vaccine??Yes I nterim History: Emergency room visit Y es. Was hospitalized N o. * ROS: P sych ROS: Constitutional A ll systems negative unless indicated otherwise.. P sych D enies delusions, Denies SI/HI - endorses AH/VH, see HPI. * PSYCH ROS2: mood swings D enies mood lability. I nattention D enies attention deficits. C ompulsive behavior D enies compusive/impulsive behaviors. D epression E ndorses. M emy E ndorses s ymptoms of miriam. A ppetite N ormal. Concentration D enies concentration deficits. S ubstance use E ndorses,Caffeine. P anic attacks E ndorses. A nxiety/Worry E ndorses. I rritability E ndorses. S elf-Harm D enies. S leep E ndorses s leep difficulties. C omments S ee HPI for details. * Medical History: * Surgical History: T OTAL HYSTERECTOMY 2021 * Hospitalization/Major Diagno stic Procedure: p sychosis 07/19-[facility] ER visit for asthma December 2023 * Family History: M other: alive. 1 brother(s) - healthy. . Patient's aunt Deep reports that patient's father has Schizophrenia. Deep denies any family history of suicide. Deep denies any family history of alcohol or drug abuse. * Social History: P rimary Social History: L iving Arrangement L iving Arrangement: D ependent Living L iving with: P destiny(s) I s this a supportive environment? Y es Alcohol Use A lcohol Use Frequency: N ever Illicit Substance Usage I llicit Substance Usage: N o Employment Status E mployment Status: O n Disability P ast Medication Use: D o you use nicotine other than cigarettes?: no. T obacco Use: D ont use, Tobacco Use/Smoking A re you a n onsmoker Tobacco Control (Standard) T obacco use: N onsmoker D rugs/Alcohol: D o you smoke marijuana?: Denies. Do you drink alcohol?: Denies. M iscellaneous: M ethod of learning P referred method of learning: D iscussion * Medications: T akingtraZODone HCl 150 MG Tablet 1 tablet at bedtime Orally at night Invega Sustenna 234 MG/1.5ML Suspension Prefilled Syringe 1 mL Intramuscular monthly ARIPiprazole 5 MG Tablet 1 tablet Orally Once a day Taking traZODone HCl 150 MG Tablet 1 tablet at bedtime Orally at night Taking Invega Sustenna 234 MG/1.5ML Suspension Prefilled Syringe 1 mL Intramuscular monthly Taking ARIPiprazole 5 MG Tablet 1 tablet Orally Once a day Not-TakingInvega Sustenna 156 MG/ML Suspension Prefilled Syringe 1 mL Intramuscular Not-Taking Invega Sustenna 156 MG/ML Suspension Prefilled Syringe 1 mL Intramuscular DiscontinuedbuPROPion HCl 100 mg Tablet TAKE 1 TABLET BY MOUTH TWICE A DAY Medication List reviewed and reconciled with the patientDiscontinued buPROPion HCl 100 mg Tablet TAKE 1 TABLET BY MOUTH TWICE A DAY Medication List reviewed and reconciled with the patient * Allergies: N .K.D.A.no[Allergies Verified] Objective: * Vitals: I nitials: sw, Wt:206.4, Ht: 62, BMI:37.75, BP:124/82, HR:82, Oxygen sat %:98, Temp:99.1, RR:16, LMP: 08/2024, Pain scale:7. * Examination: C QM Exceptions: Cervical Cancer Screening not performed R deepak H istory of Hysterectomy - No Residual Cervix G eneral Examination: GENERAL APPEARANCE: n ormal, pleasant, in no acute distress. HEAD: n ormocephalic, atraumatic. EYES: B OTH EYES n ormal; p upils equal, round, reactive to light and accommodation; e xtraocular movement intact (EOMI). EARS B OTH EARS, normal. NECK/THYROID: n ormal, neck supple, full range of motion.? LYMPH NODES: n o lymphadenopathy. SKIN: w arm and dry, no rashes, no suspicious lesions. HEART: r egular rate and rhythm, S1, S2 normal. LUNGS: r espirations regular and easy, clear to auscultation bilaterally. ABDOMEN: b owel sounds present, soft, nontender, nondistended, no masses palpable. MUSCULOSKELETAL: n ormal. EXTREMITIES: n o edema. NEUROLOGIC: c ranial nerves 2-12 grossly intact, alert and oriented, gait normal. M ental Status Exam: SENSORIUM AND COGNITION A lert, Oriented to Person, Oriented to Place, Oriented to Time, Oriented to Situation. ATTENTION AND CONCENTRATION N o deficits. APPEARANCE H air is mildly disheveled, clothing appropriate for weather but slightly untidy. ATTITUDE AND BEHAVIOR C ooperative. MEMORY G rossly intact. EYE CONTACT G ood. AFFECT B road/Full to mildly restricted. MOOD Happy. It's a calm day. A little worry and a little depression. . SPEECH QUANTITY A ppropriate. SPEECH QUALITY S pontaneous, Appropriate volume. THOUGHT PROCESS C oherent and goal directed. THOUGHT CONTENT A ppropriate - WNL. LANGUAGE A ppropriate- WNL. MOTOR ACTIVITY N o abnormal movements or tics noted. SUICIDAL IDEATION D enies suicidal ideation. HOMICIDAL IDEATION D enies homicidal ideation. HALLUCINATIONS E ndorses hallucinations, doesn't respond to internal stimuli during appointment. INSIGHT G ood. JUDGMENT G ood. Assessment: * Assessment: 1. A nxiety - F41.9 2 . S chizophrenia, paranoid type - F20.0 (Primary)? 3. D epression, major, recurrent, moderate - F33.1 4 . P TSD (post-traumatic stress disorder) - F43.10 5 . N ightmares - F51.5 6. S leeping difficulty - G47.9 7 . E ncounter for immunization - Z23 8 . N utritional counseling - Z71.3 Plan: * Treatment: 2. A nxiety Notes: Duration (acute/chronic), stability (controlled/uncontrolled): Chronic, improved with current medication regimen, still room for improvement Current medications/efficacy: Somewhat, room for improvement Previous medication trials: Ingrezza, Haldol, Abilify, Prolixin, invega, Risperdal, Aristida, Zyprexa. Current/previous therapies: Denies currently - doesn't feel this is necessary at this time Examination as documented - see pertinent aspects of office visit documentation. Pertinent diagnostics: LABS COMPLETED IN 10/2023, SEE CHART - ALSO MONITORED BY PCP. Differential diagnoses: suspect possible OCD component, see HPI RECOMMENDATIONS: SWITCH bupropion SR to bupropion XL as prescribed (to simplify medication regimen) - educated patient/guardian on adverse effects, risks and benefits, as well as alternative treatments INCREASE aripriprazole as prescirbed to assist further with mood/stability/hallucinations - educated patient/guardian on adverse effects, risks and benefits, as well as alternative treatments INCREASE trazodone as prescribed to assist further with sleep - educated patient/guardian on adverse effects, risks and benefits, as well as alternative treatments START prazosin as prescribed to assist with PTSD/nightmares - educated patient/guardian on adverse effects, risks and benefits, as well as alternative treatments Continue/modify other medications as prescribed - educated patient/guardian on adverse effects, risks and benefits, as well as alternative treatments Consume well balanced diet, preferably low in saturated fats (solid at room temperature, such as butter, margarine, Crisco, etc) and low in sodium (<2,000mg per day). Consume plenty of fruits/vegetables, healthy grains/whole grains, unsaturated/healthy fats (liquid at room temperature, such as olive oil, sunflower seed oil, canola, vegetable, etc.). Exercise regularly - Develop an exercise routine. 30 minutes of moderate exercise (walking at a brisk pace) 5 times per week is recommended. You should work hard enough to cause a sweat but still be able to talk with others while exercising. Exercise improves overall health - improves blood pressure and blood sugar, helps control weight, reduces stress, and improves mood. Practice stress reduction techniques, such as guided imagery, journaling, aromatherapy, acupuncture/acupressure, deep breathing, etc. Practice healthy sleep hygiene - maintain regular routine, no caffeine after 1PM, no exercise 1-2 hours prior to bedtime, keep bedroom dark and cool, no TV or electronics while in bed. Consider melatonin as needed. Consider cognitive behavioral therapy for insomnia (CBT-I). Consider/Continue therapy. Consider/Continue substance cessation therapy as needed - contact office if desiring medication assisted therapy. Manage co-morbid conditions. Continue monitoring symptoms - report persistent or worsening/concerning symptoms to the office or go to the ER. For mental health CRISIS, please reach out to [phone] ([facility]icide [facility] Crisis Lifeline), 911, go to the emergency department, or contact the [facility] Crisis Unit/Team. Follow up as scheduled or sooner if necessary. Follow up with PCP and/or other specialists as advised. NEXT STEP: Consider increasing aripiprazole as needed. Consider increasing trazodone as needed. Consider increasing bupropion as needed. Consider increasing prazosin pending response/tolerability. Consider adding medication for potential OCD tendencies (see HPI). Consider other medication adjustments as needed. 3. D epression, major, recurrent, moderate Start buPROPion HCl ER (XL) Tablet Extended Release 24 Hour, 150 MG, 1 tablet in the morning, Orally, Once a day, 30 days, 30, Refills 1; I ncrease traZODone HCl Tablet, 150 MG, 1.5 tablet at bedtime, Orally, at night, 30 days, 45, Refills 1. Notes: See assessment and plan for anxiety 4. P TSD (post-traumatic stress disorder) Notes: See assessment and plan for anxiety 5. N ightmares Start Prazosin HCl Capsule, 1 MG, 1 capsule at bedtime, Orally, Once a day, 30 days, 30, Refills 1.? Notes: See assessment and plan for anxiety 6. S leeping difficulty Notes: See assessment and plan for anxiety 7. E ncounter for immunization Clinical Notes: Ordered per standing orders for administering influenza vaccine to adults. ? * Recommended Wellness and Pre vention Guidelines: * S tatus A jennifer L ast Done N ext Due A ction Taken N ONCOMPLIANT H IV screening - 1 11/01/2023 - * Immunizations: Influenza, virus vaccine, trivalent, preservative free : 0.5 mL (Route: Intramuscular) given by Madeline Braun on Right Deltoid * Therapeutic Injections: Invega Sustenna : 234 mg (Dose No:1) (Route: Intramuscular) given by Madeline Braun on left deltoid * Procedure Codes: 3 008F BODY MASS INDEX [id number] Flu Vaccine [id number] MEDICAL NUTRITION, INDIV, [id number] TOBACCO [id number] THER/PROPH/DIAG INJ, [id number] IIV3 VACC NO PRSV 0.5 ML [id number] IMMUNIZATION ADMIN * Preventive Medicine: Counseling: C are goal follow-up plan: BMI management provided Y es Above Normal BMI Follow-up L ifestyle education regarding diet * Follow Up: 4 Weeks - IN PERSON (Reason: 4 week psych follow up/med refill/INJECTION) * * ION OPERATOR Sign off status: Completed true * Provider: Yadira Gee APN Date: 11/01/2023 Generated for Fanny villarreal/Rigoberto/Curtransmitting on: 0 11/15/2024 12:27 PM 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 History and Physical Notes * HPI (History of Present Illness) Category Sub-Category Detail Notes Category Not es Interim History Was hospitalized No Emergency room visit Yes Depression Screening PHQ-9 Little inte rest or pleasure in doing things: Not at all Feeling down, depressed, or hopeless: Se veral days Trouble falling or staying asleep, or sl eeping too much: Several days Feeling tired or having little energy: S everal days Poor appetite or overeating: Several day s Feeling bad about yourself o r that you are a failure, or have let yourself or your family down: Several days Trouble concentrating on thi ngs, such as reading the newspaper or watching television: Several days Moving or speaking so slowly that other people could have noticed; or the opposite, being so fidgety or restless that you have been moving around a lot more than usual: Several days Thoughts that you would be b greg off or of hurting yourself in some way: Not at all Total Score: 7 Interpretation: Mild Depression Influenza Immunization Influenza Immuniz ation Screening Questionnaire Has fever or is ill?: No . Has had influenza immunization in past?: Yes .. Had serious reaction to influenza immuni zation in past: No .. Had reaction to eggs or egg products?: N o .. Had Guillain-Beardsley Syndrome (GBS)?: No . . Has an allergy to Thimerosal or mercury products?: No .. Result of clinical decision regarding administering immunization: Based on questionnaire answers, can administer immunization .. Verbal Consent given:: Patient provided verbal consent. .. Recipient Category Is the patient a [employer] emp loyee?: No . Vaccine recipient is an established [facility] patient?: Yes Has patient received vaccine(s) from [facility] in the past?: Yes Was The Patient Educated On This Vaccine ?: Yes ROSEMARY-7 Screening 1. Feeling nervous, anxious, or on edg e , Several days-1 2. Not being able to stop or control wor rying , Nearly every day-3 3. Worrying too much about different thi ngs , Nearly every day-3 4. Trouble sleeping/relaxing , Nearly ev jasbir day-3 5. Being so restless that it is hard to sit still , Several days-1 6. Becoming easily annoyed or irritable , Several days-1 7. Feeling afraid, as if something awful might happen , Several days-1 ROSEMARY-7 Score Total score: 13 : Do Not Use CSSRS Interpretation and Follow Up Plan CSSRS Interpretation and Follow Up Plan CSSRS Screen documented using SF: Yes Moderate or High risk requir es selection of a follow up plan: CSSRS No/Low: intervention not needed at this time Preventative Health and Wellness follow-up Action Plans for Clinical Quality Measures: HIV Screening:: Discussed need for HIV screening. Patient declined. . Examination Category Sub-Category Detail Notes Category Not es General Examination GENERAL APPEARANCE: normal, pleasant, in no acute distress HEAD: normocephalic, atrau matic EYES: BOTH EYES normal; pu pils equal, round, reactive to light and accommodation; extraocular movement intact (EOMI) EARS BOTH EARS, normal NECK/THYROID: normal, neck supple, full range of motion HEART: regular rate and rhy thm, S1, S2 normal LUNGS: respirations regular and easy, clear to auscultation bilaterally ABDOMEN: bowel sounds present , soft, nontender, nondistended, no masses palpable NEUROLOGIC: cranial nerves 2-12 grossly intact, alert and oriented, gait normal SKIN: warm and dry, no ila hes, no suspicious lesions EXTREMITIES: no edema MUSCULOSKELETAL: normal LYMPH NODES: no lymphadenopathy CQM Exceptions Cervical Cancer Scre ening not performed Reason: History of Hysterectomy - No Residual Cervix Mental Status Exam SENSORIUM AND COGNITION Alert , Oriented to Person, Oriented to Place, Oriented to Time, Oriented to Situation ATTENTION AND CONCENTRATION No deficits APPEARANCE Hair is mildly dishe veled, clothing appropriate for weather but slightly untidy ATTITUDE AND BEHAVIOR Cooperative MEMORY Grossly intact EYE CONTACT Good AFFECT Broad/Full to mildly restricted MOOD Happy. It's a calm day. A little worry and a little depression. SPEECH QUANTITY Appropriate SPEECH QUALITY Spontaneous, Appropr iate volume THOUGHT PROCESS Coherent and goal di rected THOUGHT CONTENT Appropriate - WNL MOTOR ACTIVITY No abnormal movement s or tics noted SUICIDAL IDEATION Denies suicidal idea tion HOMICIDAL IDEATION Denies homicidal steven ation HALLUCINATIONS Endorses hallucinati ons, doesn't respond to internal stimuli during appointment INSIGHT Good JUDGMENT Good LANGUAGE Appropriate- WNL
--- OUTSIDE RECORDS SUMMARY | 2024-11-15 12:27 | XMS_ITS ---
Author Organization [facility] Address [address] [place] [address] Care Team Providers Care Assurance Senior Manager Name Role Phone Royal Gee Primary Care Provider Allergies No Known Allergies REASON FOR VISIT 4 week F/U Medications Medication SIG (Take, Route, Frequency, Duration) Notes Start Date End Date Status ARIPiprazole 10 MG 1 tablet Orally Once a day for 30 days Active traZODone HCl 150 MG 1.5 tablet at bedti me Orally at night for 30 days Active Prazosin HCl 2 MG 1 capsule at bedtime Orally Once a day for 30 days Active Sertraline HCl 50 MG 1 tablet Orally Onc e a day for 30 days 10/26/2024 Active Propranolol HCl 10 MG 1 tablet Orally tw ice daily as needed for anxiety for 30 days 10/26/2024 Active Invega Sustenna 234 MG/1.5ML 1 mL Intramuscular monthly for 1 days Active Invega Sustenna 156 MG/ML 1 mL Intramuscular for 30 days 02/22/2024 Not-Taking buPROPion HCl ER (XL) 150 MG 1 tablet in the morning Orally Once a day for 30 days Active Social History Tobacco Use: Social History Observation Description Date Details (start date - stop date) Never Smoker NA - NA Sex Assigned At : Social History Observation Description Sex Assigned At Female Tobacco Control (Standard) Question Answer Notes Tobacco use: Nonsmoker Vital Signs Weight 203.0 lbs 10/26/2024 Height 62 in 10/26/2024 BMI 37.13 kg/m2 10/26/2024 Blood pressure systolic 136 mm Hg 10/26/19 25 Blood pressure diastolic 82 mm Hg 025 Heart Rate 106 /min 10/26/2024 Oximetry 97 % 10/26/2024 Temperature 98.2 degrees Fahrenheit 10/26/19 25 Respiratory Rate 16 /min 10/26/2024 Encounters Encounter Location Date Provider Diagnosis [facility] [place] [address] 10/26/2024 Royal Gee Schizophrenia, paranoid type F20.0 ; Anxiety F41.9 ; Depression, major, recurrent, moderate F33.1 ; PTSD (post-traumatic stress disorder) F43.10 ; Nightmares F51.5 ; Sleeping difficulty G47.9 ; Encounter for immunization Z23 and Nutritional counseling Z71.3 Assessments Encounter Date Diagnosis (ICD Code) Assessment Notes Treatment Notes Treatment Clinical Notes Section Notes 10/26/2024 Schizophrenia, paranoid type (ICD-10 - F20.0) Duration (acute/chronic), stability (controlled/unco ntrolled): Chronic, somewhat controlled, room for improvement, see HPI Current medications/effi cacy: Somewhat, room for improvement Previous medication trials: Ingrezza, Haldol, Abilify, Prolixin, invega, Risperdal, Aristida, Zyprexa. Current/previous therapies: Denies currently - doesn't feel this is necessary at this time Examination as documented - see pertinent aspects of office visit documentation. Pertinent diagnostics: LABS COMPLETED IN 10/2023, SEE CHART - ALSO MONITORED BY PCP. Differential diagnoses: RECOMMENDATIONS: START sertraline as prescribed to assist with anxiety/depressi on - educated patient/guardian on adverse effects, risks and benefits, as well as alternative treatments START propranolol as prescribed to assist with anxiety - educated patient/guardian on adverse effects, risks and benefits, as well as alternative treatments INCREASE aripriprazole as prescirbed to assist further with mood/stability/h allucinations - educated patient/guardian on adverse effects, risks and benefits, as well as alternative treatments INCREASE prazosin as prescribed to assist with PTSD/nightmares [...] to the emergency department, or contact the [facility] Crisis Unit/Team. Follow up as scheduled in 4 weeks or sooner if necessary. Follow up with PCP and/or other specialists as advised. NEXT STEP: Consider medication adjustments as needed. 10/26/2024 Anxiety (ICD-10 - F41.9) Duration (acute/chronic), stability (controlled/unco ntrolled): Chronic, somewhat controlled, room for improvement, see HPI Current medications/effi cacy: Somewhat, room for improvement Previous medication trials: Ingrezza, Haldol, Abilify, Prolixin, invega, Risperdal, Aristida, Zyprexa. Current/previous therapies: Denies currently - doesn't feel this is necessary at this time Examination as documented - see pertinent aspects of office visit documentation. Pertinent diagnostics: LABS COMPLETED IN 10/2023, SEE CHART - ALSO MONITORED BY PCP. Differential diagnoses: RECOMMENDATIONS: START sertraline as prescribed to assist with anxiety/depressi on - educated patient/guardian on adverse effects, risks and benefits, as well as alternative treatments START propranolol as prescribed to assist with anxiety - educated patient/guardian on adverse effects, risks and benefits, as well as alternative treatments INCREASE aripriprazole as prescirbed to assist further with mood/stability/h allucinations - educated patient/guardian on adverse effects, risks and benefits, as well as alternative treatments INCREASE prazosin as prescribed to assist with PTSD/nightmares [...] to the emergency department, or contact the [facility] Crisis Unit/Team. Follow up as scheduled in 4 weeks or sooner if necessary. Follow up with PCP and/or other specialists as advised. NEXT STEP: Consider medication adjustments as needed. 10/26/2024 Depression, major, recurrent, moderate (ICD-10 - F33.1) See assessment and plan for anxiety 10/26/2024 PTSD (post-traumatic stress disorder) (ICD-10 - F43.10) See assessment and plan for anxiety 10/26/2024 Nightmares (ICD-10 - F51.5) See assessment and plan for anxiety 10/26/2024 Sleeping difficulty (ICD-10 - G47.9) See assessment and plan for anxiety 10/26/2024 Encounter for immunization (ICD-10 - Z23) Ordered per standing orders for administering influenza vaccine to adults. 10/26/2024 Nutritional counseling (ICD-10 - Z71.3) Plan Of Treatment Medication Medication Name Sig Start Date Stop Date Notes ARIPiprazole 10 MG 1 tablet Orally Once a day for 30 days traZODone HCl 150 MG 1.5 tablet at bedti me Orally at night for 30 days Prazosin HCl 2 MG 1 capsule at bedtime Orally Once a day for 30 days Sertraline HCl 50 MG 1 tablet Orally Onc e a day for 30 days 10/26/2024 Propranolol HCl 10 MG 1 tablet Orally tw ice daily as needed for anxiety for 30 days 10/26/2024 Invega Sustenna 234 MG/1.5ML 1 mL Intram uscular monthly for 1 days buPROPion HCl ER (XL) 150 MG 1 tablet in the morning Orally Once a day for 30 days Treatment Notes Assessment Notes Schizophrenia, paranoid type Duration (acute/chronic), stability (controlled/uncontrolled): Chronic, somewhat controlled, room for improvement, see HPI Current medications/efficacy: Somewhat, room for improvement Previous medication trials: Ingrezza, Haldol, Abilify, Prolixin, invega, Risperdal, Aristida, Zyprexa. Current/previous therapies: Denies currently - doesn't feel this is necessary at this time Examination as documented - see pertinent aspects of office visit documentation. Pertinent diagnostics: LABS COMPLETED IN 10/2023, SEE CHART - ALSO MONITORED BY PCP. Differential diagnoses: RECOMMENDATIONS: START sertraline as prescribed to assist with anxiety/depression - educated patient/guardian on adverse effects, risks and benefits, as well as alternative treatments START propranolol as prescribed to assist with anxiety - educated patient/guardian on adverse effects, risks and benefits, as well as alternative treatments INCREASE aripriprazole as prescirbed to assist further with mood/stability/hallucinations - educated patient/guardian on adverse effects, risks and benefits, as well as alternative treatments INCREASE prazosin as prescribed to assist with PTSD/nightmares [...] to the emergency department, or contact the [facility] Crisis Unit/Team. Follow up as scheduled in 4 weeks or sooner if necessary. Follow up with PCP and/or other specialists as advised. NEXT STEP: Consider medication adjustments as needed. Anxiety Duration (acute/chronic), stability (controlled/uncontrolled): Chronic, somewhat controlled, room for improvement, see HPI Current medications/efficacy: Somewhat, room for improvement Previous medication trials: Ingrezza, Haldol, Abilify, Prolixin, invega, Risperdal, Aristida, Zyprexa. Current/previous therapies: Denies currently - doesn't feel this is necessary at this time Examination as documented - see pertinent aspects of office visit documentation. Pertinent diagnostics: LABS COMPLETED IN 10/2023, SEE CHART - ALSO MONITORED BY PCP. Differential diagnoses: RECOMMENDATIONS: START sertraline as prescribed to assist with anxiety/depression - educated patient/guardian on adverse effects, risks and benefits, as well as alternative treatments START propranolol as prescribed to assist with anxiety - educated patient/guardian on adverse effects, risks and benefits, as well as alternative treatments INCREASE aripriprazole as prescirbed to assist further with mood/stability/hallucinations - educated patient/guardian on adverse effects, risks and benefits, as well as alternative treatments INCREASE prazosin as prescribed to assist with PTSD/nightmares [...] health CRISIS, please reach out to [phone] ([employer] Suicide and Crisis Lifeline), 911, go to the emergency department, or contact the [facility] Crisis Unit/Team. Follow up as scheduled in 4 weeks or sooner if necessary. Follow up with PCP and/or other specialists as advised. NEXT STEP: Consider medication adjustments as needed. Depression, major, recurrent, moderate S ee assessment and plan for anxiety PTSD (post-traumatic stress disorder) Se e assessment and plan for anxiety Nightmares See assessment and p jessica for anxiety Sleeping difficulty See assessment and p jessica for anxiety Next Appt Details Follow Up: 4 Weeks - IN PERS ON, Reason: 4 week psych follow up/med refill Medications Administered Medication Instructions Date of Administration Dosage Notes Invega Sustenna 10/26/2024 234 mg Patient t olerated well Progress Notes * Krystal TRINHDOB:1990 (33 yo F)Acc No.[id number]:10/26/2024 Patient: Krystal STEVENSON Provider: Yadira Gee APN :1990 A ge:33 Y S ex:Female Date:10/26/2024 Phone: Address:[address] [place], [place] [id number] Check In:09:00 AM [employer] Subjective: * Chief Complaints: * 4 week F/U * HPI: S ummary: History of Presenting Illness: Patient is presenting for 4 week follow up. Dealing with some anxiety and depression SSI paperwork is contributing to anxiety Family member confirmed that patient is taking all medications as prescribed Prazosin has been somewhat helpful in improving nightmares, still some room for improvement Patient still talking to someone/something that others cannot perceive per family member report Patient continues to be docile - not aggressive or irritable Patient open to medication adjustments Patient agreeable to increasing aripiprazole to assist with psychotic symptoms. Agreeable to increasing prazosin to assist with PTSD/nightmares. Agreeable to starting sertraine to assist with anxiety/depression. Agreeable to starting propranolol to assist with anxiety. Agreeable to continuing other medications as prescribed - patient to receive Invega injection in office today. Agreeable to following up in 4 weeks, sooner if necessary. - - - - - - - - - - - - - - - - - - - - - - - - - - - - - - - - - - - - - - - - - - - - - - - - - - - - - - - - - - - - - - - - - - - - - - - - - - - - - - - PERTINENT HPI DETAILS FROM PREVIOUS APPOINTMENT: Patient is presenting for 4 week follow up. Patient is presenting with family member who helps patient with appointments and other chores/responsibilities Patient lives by herself but family member checks on patient regularly throughout the week Patient was started on prazosin during previous appointment to assist with PTSD symptoms - reportedly tolerating medication well without complication or complaint, medication reportedly helpful per patient Aripiprazole was increased during previous appointment to assist with mood/stability/hallucinations - patient reports that hallucinations seem less frequent/ quieter Bupropion was switching to once daily XL formulation to simplify medication regimen - transition reportedly going well per patient report Trazodone was increased to assist with sleep - reportedly helpful per patient report Of note, patient reports that symptoms are overall improving with current medication regimen; HOWEVER, family member reports that patient is talking more to herself since last appointment Patient reportedly never aggressive toward herself or others - It has always been just relatively harmless, talking to herself. Family member reports that no one watches patient taking medications; thus, there is some question as to whether patient is adherent to the medication regimen as prescribed Patient, provider and family member discussed the situation and decided that the most appropriate course of action at this time is to continue medication regimen as prescribed and have family member watch patient taking medications (at least the aripiprazole if not able to witness patient taking other medications) Family member and patient agreeable to this as family member lives relatively close to patient and can drive over to witness administration Patient agreeable to continuing medications as prescribed (patient to receive Invega injection in office today prior to leaving) - family member to watch patient take medications (at least aripiprazole if nothing else). Agreeable to following up again in 4 weeks, sooner if necessary. - - - - - - - - - - - - - - - - - - - - - - - - - - - - - - - - - - - - - - - - - - - - - - - - - - - - - - - - - - - - - - - - - - - - - - - - - - - - - - - -Medications Effectiveness: Somewhat, room for improvement -Medication Adherence: Yes -Side effects: Denies -Previous Medication Trials: I ngrezza, Haldol, Abilify, Prolixin, invega, Risperdal, Aristida, Zyprexa. -Sleep: Subjectively improved with recent medication adjustments - previously reported Waking 1-2 times nightly due to nightmares -Nightmares/Night terrors: 1-2 times nightly -Appetite: Pretty good. -Mood: Pretty good. - previously reported Happy. It's a calm day. A little worry and a little depression. -Anxiety Rating (10/10 being the worst): 9/10 since last appointment - previously reported 6/10 since last appointment, subjectively slightly improved - previously reported 7/10 on average -Depression Rating (10/10 being the worst): 7/10 since last appointment - previously reported 7 /10 since last appointmnent, subjectively slightly better - previously reported 10/10 on average -Anger/Irritability Rating (10/10 being the worst): Sbujectively slightly better compared to prevoius appointment - previously reported 6/10 on average -Suicidal ideation: Denies current or previous ideation or acts -Thoughts of Self-Harm: Denies current or previous dieation or acts -Homicidal ideation: Deneis current or previous ideation or acts -Concentration/attention: -Psychotic Symptoms/Behaviors (hallucinations, delusions, paranoia, etc.): Hear (sometimes people, sometimes not associated with visual hallucinations - will say things like food, outside ) and see people (walking past patient and say hi) - denies command hallcuinations - reports previous [...] will consume 0.5 cups once yearly for [place] -Marijuana - Denies current or previous use -Other Substances - Denies current or previous other substance use Medical concerns or hospitalizations: Denies Therapy: Denies currently - doesn't feel this is necessary at this time Labs: LABS COMPLETED IN 10/2023, SEE CHART - ALSO MONITORED BY PCP. D epression Screening: PHQ-9 L ittle interest or pleasure in doing things?More than half the days F eeling down, depressed, or hopeless S everal days T rouble falling or staying asleep, or sleeping too much S everal days F eeling tired or having little energy S everal days P oor appetite or overeating M ore than half the days F eeling bad about yourself or that you are a failure, or have let yourself or your family down N early every day T rouble concentrating on things, such as reading the newspaper or watching television N early every day M oving or speaking so slowly that other people could have noticed; or the opposite, being so fidgety or restless that you have been moving around a lot more than usual N early every day T houghts that you would be better off or of hurting yourself in some way N ot at all Intervention D epression Screening Findings P ositive F ollow-Up for Depression N o Referral necessary, patient involved in behavioral health treatment . S creening: [place] Suicide Severity Rating Scale (LF) D o you want to initiate with S creener form 1 . Wish to be : Have you wished you were or wished you could go to sleep and not wake up? N o 2 . Suicidal Thoughts: Have you actually had any thoughts of killing yourself? N o 6 . Suicide Behavior Question: Have you ever done anything,started to do anything, or prepared to end your life? N o I nterpretation: L ow Risk C SSRS Interpretation and Follow Up Plan: CSSRS Interpretation and Follow Up Plan C SSRS Screen documented using SF Y es R isk Disposition from SF L ow - No Follow Up Plan Required F ollow Up Plan N o Follow Up Plan required at this time. I nterim History: Emergency room visit N o. Was hospitalized Y es. P [facility] follow-up: Action Plans for Clinical Quality Measures: H IV Screening: N ot addressed during this visit. See notes for details. . * ROS: P sych ROS: Constitutional A [...] ndorses s leep difficulties. C omments S HPI for details. * Medical History: * Surgical History: T OTAL HYSTERECTOMY 2021 * Hospitalization/Major Diagno stic Procedure: p sychosis 07/19-07/25-2019[facility] ER visit for asthma December 2023 * Family History: M other: alive. 1 brother(s) - healthy. . Patient's aunt Deep reports that patient's father has Schizophrenia. Deep denies any family history of suicide. Deep denies any family history of alcohol or drug abuse. * Social History: P rimary Social History: L iving Arrangement L iving Arrangement: D ependent Living L iving with: Brent dixon(s) I s this a supportive environment? Y es Alcohol Use A lcohol Use Frequency: N ever Illicit Substance Usage I llicit Substance Usage: N o Employment Status E mployment Status: O n Disability T obacco Use: T obacco Control (Standard) T obacco use: N onsmoker M iscellaneous: M ethod of learning P referred method of learning: D iscussion * Medications: T akingInvega Sustenna 234 MG/1.5ML Suspension Prefilled Syringe 1 mL Intramuscular monthly buPROPion HCl ER (XL) 150 MG Tablet Extended Release 24 Hour 1 tablet in the morning Orally Once a day Prazosin HCl 1 MG Capsule 1 capsule at bedtime Orally Once a day traZODone HCl 150 MG Tablet 1.5 tablet at bedtime Orally at night ARIPiprazole 5 MG Tablet 1.5 tablet Orally Once a day Taking Invega Sustenna 234 MG/1.5ML Suspension Prefilled Syringe 1 mL Intramuscular monthly Taking buPROPion HCl ER (XL) 150 MG Tablet Extended Release 24 Hour 1 tablet in the morning Orally Once a day Taking Prazosin HCl 1 MG Capsule 1 capsule at bedtime Orally Once a day Taking traZODone HCl 150 MG Tablet 1.5 tablet at bedtime Orally at night Taking ARIPiprazole 5 MG Tablet 1.5 tablet Orally Once a day Not-TakingInvega Sustenna 156 MG/ML Suspension Prefilled Syringe 1 mL Intramuscular Medication List reviewed and reconciled with the patientNot-Taking Invega Sustenna 156 MG/ML Suspension Prefilled Syringe 1 mL Intramuscular Medication List reviewed and reconciled with the patient * Allergies: N .K.D.A.no[Allergies Verified] Objective: * Vitals: I nitials: rt, Wt:203.0, Ht: 62, BMI:37.13, BP:136/82, HR:106, Oxygen sat %:97, Temp:98.2, RR:16, LMP: 09/2024, Pain scale:0. * Examination: M ental Status Exam: SENSORIUM AND COGNITION A lert, Oriented to Person, Oriented to Place, Oriented to Time, Oriented to Situation. ATTENTION AND CONCENTRATION N o deficits. APPEARANCE H air is mildly disheveled, clothing appropriate for weather but slightly untidy, makeup applied today (bright pink, light blue, in appropriate application - appeared slightly clown-like ). ATTITUDE AND BEHAVIOR C ooperative. MEMORY G rossly intact. EYE CONTACT G ood. AFFECT B road/Full to mildly restricted. MOOD Pretty good. . SPEECH QUANTITY S parse. SPEECH QUALITY S pontaneous, Appropriate volume. THOUGHT PROCESS C oherent and goal directed. THOUGHT CONTENT A ppropriate - WNL. LANGUAGE A ppropriate- WNL. MOTOR ACTIVITY N o abnormal movements or tics noted. SUICIDAL IDEATION D enies suicidal ideation. HOMICIDAL IDEATION D enies homicidal ideation. HALLUCINATIONS E ndorses hallucinations. INSIGHT P oor. JUDGMENT P oor. G eneral Examination: GENERAL APPEARANCE: n ormal, pleasant, in no acute distress. HEAD: n ormocephalic, atraumatic. EYES: B OTH EYES, normal, extraocular movement intact (EOMI), pupils equal, round, reactive to light and accommodation. LUNGS: r espirations regular and easy. NEUROLOGIC: c ranial nerves 2-12 grossly intact, alert and oriented, gait normal, no tremor, tic or rigidity. Assessment: * Assessment: 1. S chizophrenia, paranoid type - F20.0 2 . A nxiety - F41.9 ?3. D epression, major, recurrent, moderate - F33.1 4 . P TSD (post-traumatic stress disorder) - F43.10 5 . N ightmares - F51.5 6 . S leeping difficulty - G47.9 7 . E ncounter for immunization - Z23 ?8. N utritional counseling - Z71.3 Plan: * Treatment: 2. A nxiety Notes: Duration (acute/chronic), stability (controlled/uncontrolled): Chronic, somewhat controlled, room for improvement, see HPI Current medications/efficacy: Somewhat, room for improvement Previous medication trials: Ingrezza, Haldol, Abilify, Prolixin, invega, Risperdal, Aristida, Zyprexa. Current/previous therapies: Denies currently - doesn't feel this is necessary at this time Examination as documented - see pertinent aspects of office visit documentation. Pertinent diagnostics: LABS COMPLETED IN 10/2023, SEE CHART - ALSO MONITORED BY PCP. Differential diagnoses: RECOMMENDATIONS: START sertraline as prescribed to assist with anxiety/depression - educated patient/guardian on adverse effects, risks and benefits, as well as alternative treatments START propranolol as prescribed to assist with anxiety - educated patient/guardian on adverse effects, risks and benefits, as well as alternative treatments INCREASE aripriprazole as prescirbed to assist further with mood/stability/hallucinations - educated patient/guardian on adverse effects, risks and benefits, as well as alternative treatments INCREASE prazosin as prescribed to assist with PTSD/nightmares [...] to the emergency department, or contact the [facility] Crisis Unit/Team. Follow up as scheduled in 4 weeks or sooner if necessary. Follow up with PCP and/or other specialists as advised. NEXT STEP: Consider medication adjustments as needed. 3. D epression, major, recurrent, moderate Refill buPROPion HCl ER (XL) Tablet Extended Release 24 Hour, 150 MG, 1 tablet in the morning, Orally, Once a day, 30 days, 30, Refills 1; R efill traZODone HCl Tablet, 150 MG, 1.5 tablet at bedtime, Orally, at night, 30 days, 45, Refills 1. Notes: See assessment and plan for anxiety 4. P TSD (post-traumatic stress disorder) Notes: See assessment and plan for anxiety 5. N ightmares Increase Prazosin HCl Capsule, 2 MG, 1 capsule at bedtime, Orally, Once a day, 30 days, 30, Refills 1. Notes: See assessment and plan for anxiety 6. S leeping difficulty Notes: See assessment and plan for anxiety 7. E ncounter for immunization Clinical Notes: Ordered per standing orders for administering influenza vaccine to adults. ? * Recommended Wellness and Pre vention Guidelines: * S tatus A lert L ast Done N ext Due A ction Taken N ONCOMPLIANT H IV screening - 0 10/26/2024 - * Therapeutic Injections: Invega Sustenna : 234 mg (Dose No:1) (Route: Intramuscular) given by Madeline Braun on left deltoid * Procedure Codes: [id number] THER/PROPH/DIAG INJ, [id number] BODY MASS INDEX [id number] MEDICAL NUTRITION, INDIV, [id number] TOBACCO NON-USER * Preventive Medicine: Counseling: C are goal follow-up plan: BMI management provided Y es Above Normal BMI Follow-up L lico education regarding diet * Follow Up: 4 Weeks - IN PERSON (Reason: 4 week psych follow up/med refill) * * OW [employer]ER Sign off status: Completed true * Provider: Yadira Gee APN Date: 0 10/26/2024 Generated for Fanny villarreal/Rigoberto/Redditting on: 0 11/15/2024 12:26 PM 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 [employer]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 History and Physical Notes * HPI (History of Present Illness) Category Sub-Category Detail Notes Category Not es Interim History Was hospitalized Yes Emergency room visit No Depression Screening PHQ-9 Little inte rest or pleasure in doing things: More than half the days Feeling down, depressed, or hopeless: Se veral days Trouble falling or staying asleep, or sl eeping too much: Several days Feeling tired or having little energy: S everal days Poor appetite or overeating: More than h usp the days Feeling bad about yourself o r that you are a failure, or have let yourself or your family down: Nearly every day Trouble concentrating on thi ngs, such as reading the newspaper or watching television: Nearly every day Moving or speaking so slowly that other people could have noticed; or the opposite, being so fidgety or restless that you have been moving around a lot more than usual: Nearly every day Thoughts that you would be b greg off or of hurting yourself in some way: Not at all Intervention Depression Screening Findings: P ositive Follow-Up for Depression: No Referral necessary, patient involved in behavioral health treatment . Screening [place] Suicide Sev erity Rating Scale (LF) Do you want to initiate with: Screener form 1. Wish to be : Have you wished you were or wished you could go to sleep and not wake up?: No 2. Suicidal Thoughts: Have you actually had any thoughts of killing yourself?: No 6. Suicide Behavior Question: Have you ever done anything,started to do anything, or prepared to end your life?: No Interpretation:: Low Risk Preventative Health and Wellness follow-up Action Plans for Clinical Quality Measures: HIV Screening:: Not addressed during this visit. See notes for details. . CSSRS Interpretation and Follow Up Plan CSSRS Interpretation and Follow Up Plan CSSRS Screen documented using SF: Yes Risk Disposition from SF: Low - No Follo w Up Plan Required Follow Up Plan: No Follow Up Plan requir ed at this time. Examination Category Sub-Category Detail Notes Category Not es General Examination GENERAL APPEARANCE: normal, pleasant, in no acute distress HEAD: normocephalic, atrau matic EYES: BOTH EYES, normal, e xtraocular movement intact (EOMI), pupils equal, round, reactive to light and accommodation LUNGS: respirations regular and easy NEUROLOGIC: cranial nerves 2-12 grossly intact, alert and oriented, gait normal, no tremor, tic or rigidity Mental Status Exam SENSORIUM AND COGNITION Alert , Oriented to Person, Oriented to Place, Oriented to Time, Oriented to Situation ATTENTION AND CONCENTRATION No deficits APPEARANCE Hair is mildly dishe veled, clothing appropriate for weather but slightly untidy, makeup applied today (bright pink, light blue, in appropriate application - appeared slightly clown-like ) ATTITUDE AND BEHAVIOR Cooperative MEMORY Grossly intact EYE CONTACT Good AFFECT Broad/Full to mildly restricted MOOD Pretty good. SPEECH QUANTITY Sparse SPEECH QUALITY Spontaneous, Appropr iate volume THOUGHT PROCESS Coherent and goal di rected THOUGHT CONTENT Appropriate - WNL MOTOR ACTIVITY No abnormal movement s or tics noted SUICIDAL IDEATION Denies suicidal idea tion HOMICIDAL IDEATION Denies homicidal steven ation HALLUCINATIONS Endorses hallucinati ons INSIGHT Poor JUDGMENT Poor LANGUAGE Appropriate- WNL
--- OUTSIDE RECORDS SUMMARY | 2024-11-15 12:27 | XMS_ITS ---
Author Organization [facility] Address [address] [place] [address] Care Team Providers Care Harbormaster Name Role Phone Royal Gee Primary Care Provider [phone] Allergies No Known Allergies REASON FOR VISIT 1 month f/u Medications Medication SIG (Take, Route, Frequency, Duration) Notes Start Date End Date Status Invega Sustenna 156 MG/ML 1 mL Intramuscular for 30 days 02/22/2024 Not-Taking Prazosin HCl 1 MG 1 capsule at bedtime Orally Once a day for 30 days Active traZODone HCl 150 MG 1.5 tablet at bedti me Orally at night for 30 days Active Invega Sustenna 234 MG/1.5ML 1 mL Intramuscular monthly for 1 days Active buPROPion HCl ER (XL) 150 MG 1 tablet in the morning Orally Once a day for 30 days Active ARIPiprazole 5 MG 1.5 tablet Orally On ce a day for 30 days Active Social History Tobacco Use: Social History Observation Description Date Details (start date - stop date) Never Smoker NA - NA Sex Assigned At : Social History Observation Description Sex Assigned At Female Tobacco Control (Standard) Question Answer Notes Tobacco use: Nonsmoker Vital Signs Weight 202.2 lbs 09/28/2024 Height 62 in 09/28/2024 BMI 36.98 kg/m2 09/28/2024 Blood pressure systolic 118 mm Hg 09/28/19 25 Blood pressure diastolic 84 mm Hg 025 Heart Rate 66 /min 09/28/2024 Oximetry 98 % 09/28/2024 Respiratory Rate 16 /min 09/28/2024 Encounters Encounter Location Date Provider Diagnosis [facility] [place] [address] [place] [address] 09/28/2024 Royal Gee Anxiety F41.9 ; Schizophrenia, paranoid type F20.0 ; Depression, major, recurrent, moderate F33.1 ; PTSD (post-traumatic stress disorder) F43.10 ; Nightmares F51.5 ; Sleeping difficulty G47.9 ; Encounter for immunization Z23 and Nutritional counseling Z71.3 Assessments Encounter Date Diagnosis (ICD Code) Assessment Notes Treatment Notes Treatment Clinical Notes Section Notes 09/28/2024 Anxiety (ICD-10 - F41.9) Duration (acute/chronic), stability (controlled/unco ntrolled): Chronic, subjectively improved with current medication regimen; however, family member reports patient has been talking with herself more - there is reportedly some question as to whether patient is adherent to medication regimen/taking appropriately, see HPI Current medications/effi cacy: Somewhat, room [...] diagnoses: suspect possible OCD component, see HPI Patient, provider and family member discussed the [...] and can drive over to witness administration RECOMMENDATIONS: CONTINUE bupropion XL as prescribed assist with mood - educated patient/guardian on adverse effects, risks and benefits, as well as alternative treatments CONTINUE aripriprazole as prescirbed to assist further with mood/stability/h allucinations - educated patient/guardian on adverse effects, risks and benefits, as well as alternative treatments CONTINUE trazodone as prescribed to assist further with sleep - educated patient/guardian on adverse effects, risks and benefits, as well as alternative treatments CONTINUE prazosin as prescribed to assist with PTSD/nightmares [...] to the emergency department, or contact the [facility] Crisis Unit/Team. Follow up as scheduled in 4 weeks or sooner if necessary. Follow up with PCP and/or other specialists as advised. NEXT STEP: Consider increasing aripiprazole as needed. Consider increasing trazodone as needed. Consider increasing bupropion as needed. Consider increasing prazosin pending response/tolerab ility. Consider adding medication for potential OCD tendencies (see HPI). Consider other medication adjustments as needed. 09/28/2024 Schizophrenia, paranoid type (ICD-10 - F20.0) Duration (acute/chronic), stability (controlled/unco ntrolled): Chronic, subjectively improved with current medication regimen; however, family member reports patient has been talking with herself more - there is reportedly some question as to whether patient is adherent to medication regimen/taking appropriately, see HPI Current medications/effi cacy: Somewhat, room for improvement Previous medication trials: Ingrezza, Haldol, Abilify, Prolixin, invega, Risperdal, Aristida, Zyprexa. Current/previous therapies: Denies currently - doesn't feel this is necessary at this time Examination as documented - see pertinent aspects of office visit documentation. Pertinent diagnostics: LABS COMPLETED IN 10/2023, SEE CHART - ALSO MONITORED BY PCP. Differential diagnoses: Patient, provider and family member discussed the [...] and can drive over to witness administration RECOMMENDATIONS: CONTINUE bupropion XL as prescribed assist with mood - educated patient/guardian on adverse effects, risks and benefits, as well as alternative treatments CONTINUE aripriprazole as prescirbed to assist further with mood/stability/h allucinations - educated patient/guardian on adverse effects, risks and benefits, as well as alternative treatments CONTINUE trazodone as prescribed to assist further with sleep - educated patient/guardian on adverse effects, risks and benefits, as well as alternative treatments CONTINUE prazosin as prescribed to assist with PTSD/nightmares [...] health CRISIS, please reach out to [phone] ([place] Suicide and Crisis Lif[facility]), 911, go to the emergency department, or contact the [facility] Crisis Unit/Team. Follow up as scheduled in 4 weeks or sooner if necessary. Follow up with PCP and/or other specialists as advised. NEXT STEP: Consider increasing aripiprazole as needed. Consider other medication adjustments as needed. 09/28/2024 Depression, major, recurrent, moderate (ICD-10 - F33.1) See assessment and plan for anxiety 09/28/2024 PTSD (post-traumatic stress disorder) (ICD-10 - F43.10) See assessment and plan for anxiety 09/28/2024 Nightmares (ICD-10 - F51.5) See assessment and plan for anxiety 09/28/2024 Sleeping difficulty (ICD-10 - G47.9) See assessment and plan for anxiety 09/28/2024 Encounter for immunization (ICD-10 - Z23) Ordered per standing orders for administering influenza vaccine to adults. 09/28/2024 Nutritional counseling (ICD-10 - Z71.3) Plan Of Treatment Medication Medication Name Sig Start Date Stop Date Notes Prazosin HCl 1 MG 1 capsule at bedtime Orally Once a day for 30 days traZODone HCl 150 MG 1.5 tablet at bedti me Orally at night for 30 days Invega Sustenna 234 MG/1.5ML 1 mL Intram uscular monthly for 1 days buPROPion HCl ER (XL) 150 MG 1 tablet in the morning Orally Once a day for 30 days ARIPiprazole 5 MG 1.5 tablet Orally On ce a day for 30 days Treatment Notes Assessment Notes Anxiety Duration (acute/chronic), stability (controlled/uncontrolled): Chronic, subjectively improved with current medication regimen; however, family member reports patient has been talking with herself more - there is reportedly some question as to whether patient is adherent to medication regimen/taking appropriately, see HPI Current medications/efficacy: Somewhat, room for [...] diagnoses: suspect possible OCD component, see HPI Patient, provider and family member discussed the [...] and can drive over to witness administration RECOMMENDATIONS: CONTINUE bupropion XL as prescribed assist with mood - educated patient/guardian on adverse effects, risks and benefits, as well as alternative treatments CONTINUE aripriprazole as prescirbed to assist further with mood/stability/hallucinations - educated patient/guardian on adverse effects, risks and benefits, as well as alternative treatments CONTINUE trazodone as prescribed to assist further with sleep - educated patient/guardian on adverse effects, risks and benefits, as well as alternative treatments CONTINUE prazosin as prescribed to assist with PTSD/nightmares [...] to the emergency department, or contact the [facility] Crisis Unit/Team. Follow up as scheduled in 4 weeks or sooner if necessary. Follow up with PCP and/or other specialists as advised. NEXT STEP: Consider increasing aripiprazole as needed. Consider increasing trazodone as needed. Consider increasing bupropion as needed. Consider increasing prazosin pending response/tolerability. Consider adding medication for potential OCD tendencies (see HPI). Consider other medication adjustments as needed. Schizophrenia, paranoid type Duration (acute/chronic), stability (controlled/uncontrolled): Chronic, subjectively improved with current medication regimen; however, family member reports patient has been talking with herself more - there is reportedly some question as to whether patient is adherent to medication regimen/taking appropriately, see HPI Current medications/efficacy: Somewhat, room for improvement Previous medication trials: Ingrezza, Haldol, Abilify, Prolixin, invega, Risperdal, Aristida, Zyprexa. Current/previous therapies: Denies currently - doesn't feel this is necessary at this time Examination as documented - see pertinent aspects of office visit documentation. Pertinent diagnostics: LABS COMPLETED IN 10/2023, SEE CHART - ALSO MONITORED BY PCP. Differential diagnoses: Patient, provider and family member discussed the [...] and can drive over to witness administration RECOMMENDATIONS: CONTINUE bupropion XL as prescribed assist with mood - educated patient/guardian on adverse effects, risks and benefits, as well as alternative treatments CONTINUE aripriprazole as prescirbed to assist further with mood/stability/hallucinations - educated patient/guardian on adverse effects, risks and benefits, as well as alternative treatments CONTINUE trazodone as prescribed to assist further with sleep - educated patient/guardian on adverse effects, risks and benefits, as well as alternative treatments CONTINUE prazosin as prescribed to assist with PTSD/nightmares [...] health CRISIS, please reach out to [phone] ([place] Suicide and Crisis Lifeline), 911, go to the emergency department, or contact the [facility] Crisis Unit/Team. Follow up as scheduled in 4 weeks or sooner if necessary. Follow up with PCP and/or other specialists as advised. NEXT STEP: Consider increasing aripiprazole as needed. Consider other medication adjustments as needed. Depression, [...] Date of Administration Dosage Notes Invega Sustenna 09/28/2024 234 mg Patient t olerated well Progress Notes * ALEKSANDERKrystalDOB:1990 (33 yo F)Acc No.[id number]:09/28/2024 Patient: Krystal STEVENSON Provider: Yadira Gee APN :1990 A ge:33 Y S ex:Female Date:09/28/2024 Phone: Address:[address] [place], [place] [id number] Check In:01:53 PM X RAY NURSE Subjective: * Chief Complaints: * 1 month f/u * HPI: S ummary: History of Presenting [...] HPI DETAILS FROM PREVIOUS APPOINTMENT: Patient is a transfer from [facility]. The patient has been experiencing mood instability, [...] depression. -Anxiety Rating (10/10 being the worst): 6/10 since last appointment, subjectively slightly improved - previously reported 7/10 on average -Depression Rating (10/10 being the worst): 7/10 since last appointmnent, subjectively slightly better - [...] will consume 0.5 cups once yearly for [place] -Marijuana - Denies current or previous use -Other Substances - Denies current or previous other substance use Medical concerns or hospitalizations: Denies Therapy: Denies currently - doesn't feel this is necessary at this time Labs: LABS COMPLETED IN 10/2023, SEE CHART - ALSO MONITORED BY PCP. D epression Screening: PHQ-9 L ittle interest or pleasure in doing things?Several days F eeling down, depressed, or hopeless S everal days T rouble falling or staying asleep, or sleeping too much S everal days F eeling tired or having little energy N ot at all P oor appetite or overeating S everal days F eeling bad about yourself or that you are a failure, or have let yourself or your family down M ore than half the days T rouble concentrating on things, such as reading the newspaper or watching television M ore than half the days M oving or speaking so slowly that other people could have noticed; or the opposite, being so fidgety or restless that you have been moving around a lot more than usual N early every day T houghts that you would be better off or of hurting yourself in some way N ot at all T otal Score 1 1 I nterpretation M oderate Depression Intervention D epression Screening Findings P ositive F ollow-Up for Depression N o Referral necessary, patient involved in behavioral health treatment . S creening: [place] Suicide Severity Rating Scale (LF) D o you want to initiate with S creener form 1 . Wish to be : Have you wished you were or wished you could go to sleep and not wake up? N o 2 . Suicidal Thoughts: Have you actually had any thoughts of killing yourself? N o 6 . Suicide Behaviour: Have you ever done anything,started to do [...] time. I nterim History: Emergency room visit Y es. Was hospitalized Y es. P reventative Health [...] leep E ndorses s leep difficulties. [facility] for details. * Medical History: * Surgical History: T OTAL HYSTERECTOMY 2021 * Hospitalization/Major Diagno stic Procedure: p sychosis 07/19-07/25-2019[facility] ER visit for asthma December 2023 [...] other than cigarettes?: no. T obacco Use: T obacco Control (Standard) T obacco use: N onsmoker D rugs/Alcohol: D o you smoke marijuana?: Denies. Do you drink alcohol?: Denies. M iscellaneous: M ethod of learning P referred method of learning: R minal * Medications: T akingInvega Sustenna 234 MG/1.5ML [...] MG/ML Suspension Prefilled Syringe 1 mL Intramuscular * Allergies: N .K.D.A.no[Allergies Verified] Objective: * Vitals: I nitials: cv, Wt:202.2, Ht: 62, BMI:36.98, BP:118/84, HR:66, Oxygen sat %:98, RR:16, LMP: 08/2024, Pain scale:0. * Examination: M ental Status [...] enies homicidal ideation. HALLUCINATIONS E ndorses hallucinations, talks intermittently to yuko dolls in her bag during appointment. INSIGHT P oor. JUDGMENT P oor. G [...] tic or rigidity. Assessment: * Assessment: 1. A nxiety - [...] nxiety Notes: Duration (acute/chronic), stability (controlled/uncontrolled): Chronic, subjectively improved with current medication regimen; however, family member reports patient has been talking with herself more - there is reportedly some question as to whether patient is adherent to medication regimen/taking appropriately, see HPI Current medications/efficacy: Somewhat, room for [...] diagnoses: suspect possible OCD component, see HPI Patient, provider and family member discussed the [...] and can drive over to witness administration RECOMMENDATIONS: CONTINUE bupropion XL as prescribed assist with mood - educated patient/guardian on adverse effects, risks and benefits, as well as alternative treatments CONTINUE aripriprazole as prescirbed to assist further with mood/stability/hallucinations - educated patient/guardian on adverse effects, risks and benefits, as well as alternative treatments CONTINUE trazodone as prescribed to assist further with sleep - educated patient/guardian on adverse effects, risks and benefits, as well as alternative treatments CONTINUE prazosin as prescribed to assist with PTSD/nightmares [...] health CRISIS, please reach out to [phone] ([place] [facility] Crisis [facility]), 911, go to the emergency department, or contact the [facility] Crisis Unit/Team. Follow up as scheduled [...] and plan for anxiety 5. N ightmares Refill Prazosin HCl Capsule, 1 MG, 1 capsule [...] ext Due A ction Taken N ONCOMPLIANT A lcohol use screening - 0 09/28/2024 - N ONCOMPLIANT D epression followup 0 09/28/2024 0 09/28/2024 - N ONCOMPLIANT H IV screening - 0 09/28/2024 - * Therapeutic Injections: Invega Sustenna : 234 mg (Dose No:1) (Route: Intramuscular) given by Madeline Braun on right deltoid * Procedure Codes: 3 008F BODY MASS INDEX [id number] MEDICAL NUTRITION, INDIV, [id number] TOBACCO [id number] THER/PROPH/DIAG INJ, SC/IM * Preventive Medicine: Counseling: C are goal follow-up plan: BMI management provided Y es Above Normal BMI Follow-up L ifestyle education regarding diet * Follow Up: 4 Weeks - IN PERSON (Reason: 4 week psych follow up/med refill) * * X RAY NURSE Sign off status: Completed true * Provider: Yadira Gee APN Date: 0 09/28/2024 Generated for Printi ng/Fajdg/eTransmitting on: 0 11/15/2024 12:27 PM X RAY NURSE History and Physical Notes * HPI (History of Present Illness) Category Sub-Category Detail Notes Category Not es Interim History Was hospitalized Yes Emergency room visit Yes Depression Screening PHQ-9 Little inte rest or pleasure in doing things: Several days Feeling down, depressed, or hopeless: Se veral days Trouble falling or staying asleep, or sl eeping too much: Several days Feeling tired or having little energy: N ot at all Poor appetite or overeating: Several day s Feeling bad about yourself o r that you are a failure, or have let yourself or your family down: More than half the days Trouble concentrating on thi ngs, such as reading the newspaper or watching television: More than half the days Moving or speaking so slowly that other people could have noticed; or the opposite, being so fidgety or restless that you have been moving around a lot more than usual: Nearly every day Thoughts that you would be b greg off or of hurting yourself in some way: Not at all Total Score: 11 Interpretation: Moderate Depression Intervention Depression Screening Findings: P ositive Follow-Up for Depression: No Referral necessary, patient involved in behavioral health treatment . Screening [place] Suicide Sev erity Rating Scale (LF) Do [...] homicidal steven ation HALLUCINATIONS Endorses hallucinati ons, talks intermittently to yuko dolls in her bag during appointment INSIGHT Poor JUDGMENT Poor LANGUAGE Appropriate- WNL
--- OUTSIDE RECORDS SUMMARY | 2024-11-15 12:27 | XMS_ITS | Referral Summary ---
Author Organization [facility] Address [address] [place] [address] Care Team Providers Care Surgical Assistant Name Role Phone Rene Oliveros MD Unavailable [phone] No, Physician Primary Care Provider [phone] Allergies No known active allergies Medications haloperidoL [...] milestones. Reviewed activity restrictions. Reviewed benign pathology. Moody removed. Recommend interdry. RTC 4 weeks for cuff check. 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 SERVICE DIRECTOR Gender Identity Not on file Sexual Orientation Not on file Last Filed Vital Signs Vital Sign Reading [...] 01/13/2024 11:07 PM CDT Plan of Treatment Not on file Procedures Procedure Name Priority Date/Time Associated Diagnosis Comments PAP AND HIGH RISK HPV, REFLEX TO GENOTYPING Routine 08/27/2020 3:55 PM HOME SERVICE DIRECTOR from Last 3 Months or Most Recently Relevant to Health Maintenance Results * Pap and High Risk HPV, reflex to Genotyping (08/27/2020 3:55 PM HOME SERVICE DIRECTOR) 08/27/2020 3:55 PM HOME SERVICE DIRECTOR 08/27/2020 5:19 PM HOME SERVICE DIRECTOR [facility] [place] [facility] - 09/03/2020 12:33 PM HOME SERVICE DIRECTOR [facility] results best viewed via link to PDF [facility] [place], [place] [id number] CYTOPATHOLOGY REPORT FINAL Patient Name: KRYSTAL ARMIJO Gender: F : 1990 (Age: 29) Address: [address] [place] [address] Hospital #: [id number] Service: URBAN ANTHROPOLOGIST Location: [facility] Patient Type: [facility] Ancillary Taken: 08/27/2020 Received: 08/27/2020 Accessioned: [...] 68. This HPV test was performed at [facility] in [place], [place] utilizing the Gen-Probe Aptima assay. 09/03/2020 12:33 Ann Galindo HI(ASCP) Report Electronically Reviewed and Signed Out By Adelina Tabares M.S.,CT(ASCP) 09/03/2020 12:33:40 Cervicovaginal Cytology (Pap Test) Disclaimer: [...] mass. The HPV test was performed by [facility], [address] [place] [address]. Report Images and scanned documents, if included only viewable in PDF version The performance characteristics of some immunohistochemical stains, in-situ hybridization and fluorescence in-situ hybridization tests and immunophenotyping by flow cytometry cited in this report (if any) were determined by the Surgical Pathology Department at [facility] as part of an ongoing quality control auditor program and in compliance with federally mandated [...] determined by the Surgical Pathology Department of [facility]. It has not been cleared or approved by the [place]. [place]. Food and Drug Administration. Ld Villarreal MD LAB CYTOLOGY ORDERABLES Final Result [facility] [address] [place] [address] from Last 3 Months or Most Recently Relevant to Health Maintenance [place] Advance Directives For more information, please contact: [phone] Documents on File Type Date Recorded Patient Director Radiation Oncology Expl anation ADVANCE DIRECTIVE 11/04/2020 6:27 AM Power of Irrigation Laborer-Medical * Full Code (Latest Code Status on File) Date Activated Date Inactivated Comments 11/04/2020 1:26 PM 11/06/2020 7:49 PM Care Teams Surgical Assistant Relationship Specialty Start Date End Date No, Physician PCP - General 08/27/20 Rene Oliveros MD [address] [place] [address] Referring Physician Obstetrics and Gynecology 08/14/20
--- OUTSIDE RECORDS SUMMARY | 2024-11-15 15:54 | XMS_ITS | Patient Health Record ---
Author Organization [facility] Address [address] [place] [address] Care Team Providers Care Dragline Engineer Name Role Phone Ege, Royal Primary Care Provider Stacy Montague Unavailable [phone] MackenzieLila paul Unavailable [phone] Allergies No Known Allergies Reason For Referral No Information Medications Medication SIG (Take, Route, Frequency, Duration) Notes Start Date End Date Status ARIPiprazole 10 MG 1 tablet Orally Once a day for 30 days Active traZODone HCl 150 MG 1.5 tablet at bedti me Orally at night for 30 days Active Invega Sustenna 234 MG/1.5ML 1 mL Intramuscular monthly for 1 days Active Propranolol HCl 10 MG 1 tablet Orally tw ice daily as needed for anxiety for 90 days Active Invega Sustenna 156 MG/ML 1 mL Intramuscular for 30 days 02/22/2024 Not-Taking Prazosin HCl 2 MG 1 capsule at bedtime Orally Once a day for 30 days Active buPROPion HCl ER (XL) 150 MG 1 tablet in the morning Orally Once a day for 30 days Active Sertraline HCl 50 MG 1 tablet Orally Onc e a day for 30 days 10/26/2024 Active Immunizations Vaccine Route Administration Date Status Comme nts Influenza, virus vaccine, trivalent, preservative free IM Intramuscular 08/31/2024 Administered Patient dane eric well FLU VAC NO PRSV 4VAL 6 mo+ IM Intramuscular 08/23/2019 Administered Patient tolerated well. Social History Tobacco Use: Social History Observation Description Date Details (start date - stop date) Never Smoker NA - NA Sex Assigned At : Social History Observation Description Sex Assigned At Female Tobacco Control (Standard) Question Answer Notes Tobacco use: Nonsmoker Section Notes: Problems Problem Type SNOMED Code ICD Code Onset Dates Problem Status W/U Status Risk Notes Problem Paranoid schizophrenia (62946951) Paranoid schizophrenia (F20.0) Active confirmed Problem Posttraumatic stress disorder (25813992) PTSD (post-traumatic stress disorder) (F43.10) Active confirmed Problem Anxiety (96315921) Anxiety (F41.9) Active confirmed Problem Severe recurrent major depression without psychotic features (79683281) Severe episode of recurrent major depressive disorder, without psychotic features (F33.2) 11/20/19 Active confirmed Problem Nightmares (349802436) Nightmares (F51.5) Active confirmed Problem [id number] Schizophrenia, paranoid type (F20.0) Active confirmed Problem Difficulty sleeping (146551822) Sleeping difficulty (G47.9) Active confirmed Problem Moderate recurrent major depression (56237636) Depression, major, recurrent, moderate (F33.1) 03/31/20 Active confirmed Problem Obesity (321158306) Obesity, unspecified classification, unspecified obesity type, unspecified whether serious comorbidity present (E66.9) Active confirmed Vital Signs Heart Rate 106 /min 10/26/2024 Temperature 98.2 degrees Fahrenheit 10/26/2024 Respiratory Rate 16 /min 10/26/2024 Oximetry 97 % 10/26/2024 Blood pressure diastolic 82 mm Hg 10/26/2024 Height 62 in 10/26/2024 Blood pressure systolic 136 mm Hg 10/26/2024 Weight 203.0 lbs 10/26/2024 BMI 37.13 kg/m2 10/26/2024 Encounters Encounter Location Date Provider Diagnosis [address] [place] [address] 02/22/2024 Lila Mann Schizophrenia, paranoid type F20.0 and Depression, major, recurrent, moderate F33.[address] [address] 03/21/2024 Lila Mann Nutritional counseling Z71.3 ; Schizophrenia, paranoid type F20.0 and Depression, major, recurrent, moderate F33.[address] [place] [address] 04/25/2024 Lilamadison Mann Nutritional counseling Z71.3 ; Schizophrenia, paranoid type F20.0 and Depression, major, recurrent, moderate F33.[address] [address] 05/23/2024 Illamadison Mann Nutritional counseling Z71.3 ; Schizophrenia, paranoid type F20.0 and Depression, major, recurrent, moderate F33.[address] [address] 06/29/2024 Stacy Montague Paranoid schizophrenia F20.[address] [address] 08/31/2024 Royal Gee Schizophrenia, paranoid type F20.0 ; Anxiety F41.9 ; Depression, major, recurrent, moderate F33.1 ; PTSD (post-traumatic stress disorder) F43.10 ; Nightmares F51.5 ; Sleeping difficulty G47.9 ; Encounter for immunization Z23 and Nutritional counseling Z71.[address] [address] 09/28/2024 Royal Gee Anxiety F41.9 ; Schizophrenia, paranoid type F20.0 ; Depression, major, recurrent, moderate F33.1 ; PTSD (post-traumatic stress disorder) F43.10 ; Nightmares F51.5 ; Sleeping difficulty G47.9 ; Encounter for immunization Z23 and Nutritional counseling Z71.[address] [address] 10/26/2024 Royal Gee Schizophrenia, paranoid type F20.0 ; Anxiety F41.9 ; Depression, major, recurrent, moderate F33.1 ; PTSD (post-traumatic stress disorder) F43.10 ; Nightmares F51.5 ; Sleeping difficulty G47.9 ; Encounter for immunization Z23 and Nutritional counseling Z71.[address] [address] 04/19/2024 Lila Mann Schizophrenia, paranoid type F20.0 [facility] [address] [place] [address] 07/17/2024 [facility] Assessments Encounter Date Diagnosis (ICD Code) Assessment Notes Treatment Notes Treatment Clinical Notes Section Notes 02/22/2024 Schizophrenia, paranoid type (ICD-10 - F20.0) Last injection completed 10/16/2023. Pt continues with and VH. Denies SI/HI at this time.Reminded pt to take meds as prescribed. Will have pt obtain injection today; pt has not had an injection for 4 months, but she does not want to restart injection dose and does not want to come back in 1 week for next dose; will restart 234mg injection at this time as this is the dose that pt was receiving in the past. Pt has been tolerating injection well Pt is needing a prior auth on Invega and [place] does not have samples at this time; will have p receive Invega Sustenna 156mg at this time as pharmacy as samples and will have [employer] work on obtaining prior auth on 234mg as she has been on this dose for halfway 03/21/2024 Nutritional counseling (ICD-10 - Z71.3) 04/19/2024 Schizophrenia, paranoid type (ICD-10 - F20.0) 04/25/2024 Nutritional counseling (ICD-10 - Z71.3) 05/23/2024 Nutritional counseling (ICD-10 - Z71.3) 06/29/2024 Paranoid schizophrenia (ICD-10 - F20.0) 08/31/2024 Anxiety (ICD-10 - F41.9) Duration (acute/chronic), stability (controlled/uncontrol led): Chronic, improved with current medication regimen, still [...] aripriprazole as prescirbed to assist further with mood/stability/halluc inations - educated patient/guardian on adverse effects, risks [...] techniques, such as guided imagery, journaling, aromatherapy, acupuncture/acupressu re, deep breathing, etc. Practice healthy sleep hygiene [...] to the emergency department, or contact the [facility] Crisis Unit/Team. Follow up as scheduled or sooner if necessary. Follow up with PCP and/or other specialists as advised. NEXT STEP: Consider increasing aripiprazole as needed. Consider increasing trazodone as needed. Consider increasing bupropion as needed. Consider increasing prazosin pending response/tolerability . Consider adding medication for potential OCD tendencies (see HPI). Consider other medication adjustments as needed. 08/31/2024 Schizophrenia, paranoid type (ICD-10 - F20.0) Duration (acute/chronic), stability (controlled/uncontrol led): Chronic, improved with current medication regimen, still [...] aripriprazole as prescirbed to assist further with mood/stability/halluc inations - educated patient/guardian on adverse effects, risks [...] techniques, such as guided imagery, journaling, aromatherapy, acupuncture/acupressu re, deep breathing, etc. Practice healthy sleep hygiene [...] health CRISIS, please reach out to [phone] ([employer] Suicide and Crisis Lif[employer]), 911, go to the emergency department, or contact the [facility] Crisis Unit/Team. Follow up as scheduled or sooner if necessary. Follow up with PCP and/or other specialists as advised. NEXT STEP: Consider increasing aripiprazole as needed. Consider other medication adjustments as needed. 09/28/2024 Anxiety (ICD-10 - F41.9) Duration (acute/chronic), stability (controlled/uncontrol led): Chronic, subjectively improved with current medication regimen; [...] aripriprazole as prescirbed to assist further with mood/stability/halluc inations - educated patient/guardian on adverse effects, risks [...] techniques, such as guided imagery, journaling, aromatherapy, acupuncture/acupressu re, deep breathing, etc. Practice healthy sleep hygiene [...] to the emergency department, or contact the [facility] Crisis Unit/Team. Follow up as scheduled in 4 weeks or sooner if necessary. Follow up with PCP and/or other specialists as advised. NEXT STEP: Consider increasing aripiprazole as needed. Consider increasing trazodone as needed. Consider increasing bupropion as needed. Consider increasing prazosin pending response/tolerability . Consider adding medication for potential OCD tendencies (see HPI). Consider other medication adjustments as needed. 09/28/2024 Schizophrenia, paranoid type (ICD-10 - F20.0) Duration (acute/chronic), stability (controlled/uncontrol led): Chronic, subjectively improved with current medication regimen; [...] aripriprazole as prescirbed to assist further with mood/stability/halluc inations - educated patient/guardian on adverse effects, risks [...] techniques, such as guided imagery, journaling, aromatherapy, acupuncture/acupressu re, deep breathing, etc. Practice healthy sleep hygiene [...] to the emergency department, or contact the [facility] Crisis Unit/Team. Follow up as scheduled in 4 weeks or sooner if necessary. Follow up with PCP and/or other specialists as advised. NEXT STEP: Consider increasing aripiprazole as needed. Consider other medication adjustments as needed. 10/26/2024 Schizophrenia, paranoid type (ICD-10 - F20.0) Duration (acute/chronic), stability (controlled/uncontrol led): Chronic, somewhat controlled, room for improvement, see [...] aripriprazole as prescirbed to assist further with mood/stability/halluc inations - educated patient/guardian on adverse effects, risks [...] techniques, such as guided imagery, journaling, aromatherapy, acupuncture/acupressu re, deep breathing, etc. Practice healthy sleep hygiene [...] to the emergency department, or contact the [facility] Crisis Unit/Team. Follow up as scheduled in 4 weeks or sooner if necessary. Follow up with PCP and/or other specialists as advised. NEXT STEP: Consider medication adjustments as needed. 09/28/2024 Depression, major, recurrent, moderate (ICD-10 - F33.1) See assessment and plan for anxiety 10/26/2024 Anxiety (ICD-10 - F41.9) Duration (acute/chronic), stability (controlled/uncontrol led): Chronic, somewhat controlled, room for improvement, see [...] aripriprazole as prescirbed to assist further with mood/stability/halluc inations - educated patient/guardian on adverse effects, risks [...] techniques, such as guided imagery, journaling, aromatherapy, acupuncture/acupressu re, deep breathing, etc. Practice healthy sleep hygiene [...] health CRISIS, please reach out to [phone] ([employer] Suicide and Crisis Lifeline), 911, go to the emergency department, or contact the [facility] Crisis Unit/Team. Follow up as scheduled in 4 weeks or sooner if necessary. Follow up with PCP and/or other specialists as advised. NEXT STEP: Consider medication adjustments as needed. 08/31/2024 Depression, major, recurrent, moderate (ICD-10 - F33.1) See assessment and plan for anxiety 05/23/2024 Schizophrenia, paranoid type (ICD-10 - F20.0) Last injection completed 04/25/2024. Pt continues with AH and VH; whalen top oral Invega and start oral Abilify at this time. Pt reports that she tolerated Abilify well in the past. Pt appears to be responding less to hallucinations at times during this visit. . Denies SI/HI at this time. 04/25/2024 Schizophrenia, paranoid type (ICD-10 - F20.0) Last injection completed 02/24/2024. Pt continues with AH and VH but reports decrease since last visit. Pt appeas to be responding less to hallucinations during this visit. . Denies SI/HI at this time. Will have pt obtain injection today; pt will receive 234mg injection today. Will continue oral Invega at this time. 02/22/2024 Depression, major, recurrent, moderate (ICD-10 - F33.1) Will refill Buproprion 100mg BID for dperession symptoms. pt denies SI/HI at this time. 03/21/2024 Schizophrenia, paranoid type (ICD-10 - F20.0) Last injection completed 02/24/2024. Pt continues with and VH. Denies SI/HI at this time.Reminded pt to take meds as prescribed. Will have pt obtain injection today; pt will receive 234mg injection today; pt received 156mg at last visit as insurance would not approve 234mg and [place] had no samples of 234mg at the time. Will increase oral Invega to 6mg to aid continued hallucinations and paranoia 03/21/2024 Depression, major, recurrent, moderate (ICD-10 - F33.1) Will refill Bupropion 100mg BID for depression symptoms. Pt reports that she is sleeping well with Trazodone. Pt denies SI/HI at this time. 04/25/2024 Depression, major, recurrent, moderate (ICD-10 - F33.1) Will refill Bupropion 100mg BID for depression symptoms. Pt reports that she is sleeping well with Trazodone. Pt denies SI/HI at this time. 05/23/2024 Depression, major, recurrent, moderate (ICD-10 - F33.1) Will refill Bupropion 100mg BID for depression symptoms. Pt reports that she is sleeping well with Trazodone. Pt denies SI/HI at this time. 08/31/2024 PTSD (post-traumatic stress disorder) (ICD-10 - F43.10) See assessment and plan for anxiety 09/28/2024 PTSD (post-traumatic stress disorder) (ICD-10 - F43.10) See assessment and plan for anxiety 10/26/2024 Depression, major, recurrent, moderate (ICD-10 - [...] for administering influenza vaccine to adults. 08/31/2024 Encounter for immunization (ICD-10 - Z23) Ordered per standing orders for administering influenza vaccine to adults. 08/31/2024 Nutritional counseling (ICD-10 - Z71.3) 09/28/2024 Nutritional counseling (ICD-10 - Z71.3) 10/26/2024 Encounter for immunization (ICD-10 - Z23) Ordered per standing orders for administering influenza vaccine to adults. 10/26/2024 Nutritional counseling (ICD-10 - Z71.3) 02/22/2024 Other Discussed treat ment planDiscussed sleep hygiene and caffeine intakeReturn to clinic 4 weeksEncouraged counselingDiscussed treatment plan; patient is agreeable and accepting of treatment plan. Patient denies further questions or concerns at this time. The Patient/Guardian asked appropriate questions, appeared to understand the answers, and decided to accept the treatment and continue being followed.The Patient/Guardian is aware of the need to contact the office or return for an earlier appointment if any problems or concerns arise. May also contact the 24-hour crisis hotline ([facility]), refer to the closest emergency room or call 911 if new symptoms arise of existing symptoms worsen; the Patient/Guardian is aware that this would apply to symptoms such as: suicidal ideation, homicidal ideation, high risk behaviors, manic symptoms, psychotic symptoms, physical symptoms, or any other symptoms that may be dangerous to self or others. 03/21/2024 Other Discussed treat ment planDiscussed sleep hygiene and caffeine intakeReturn to clinic 4 weeksEncouraged counselingDiscussed treatment plan; patient is agreeable and accepting of treatment plan. Patient denies further questions or concerns at this time. The Patient/Guardian asked appropriate questions, appeared to understand the answers, and decided to accept the treatment and continue being followed.The Patient/Guardian is aware of the need to contact the office or return for an earlier appointment if any problems or concerns arise. May also contact the 24-hour crisis hotline ([facility]), refer to the closest emergency room or call 911 if new symptoms arise of existing symptoms worsen; the Patient/Guardian is aware that this would apply to symptoms such as: suicidal ideation, homicidal ideation, high risk behaviors, manic symptoms, psychotic symptoms, physical symptoms, or any other symptoms that may be dangerous to self or others. 04/25/2024 Other Discussed treat ment planDiscussed sleep hygiene and caffeine intakeReturn to clinic 4 weeksObtain lab work at next visit Encouraged counselingDiscussed treatment plan; patient is agreeable and accepting of treatment plan. Patient denies further questions or concerns at this time. The Patient/Guardian asked appropriate questions, appeared to understand the answers, and decided to accept the treatment and continue being followed.The Patient/Guardian is aware of the need to contact the office or return for an earlier appointment if any problems or concerns arise. May also contact the [place] ([facility]), refer to the closest emergency room or call 911 if new symptoms arise of existing symptoms worsen; the Patient/Guardian is aware that this would apply to symptoms such as: suicidal ideation, homicidal ideation, high risk behaviors, manic symptoms, psychotic symptoms, physical symptoms, or any other symptoms that may be dangerous to self or others. 05/23/2024 Other Discussed treatment planDiscussed sleep hygiene and caffeine intakeReturn to clinic 4 weeksObtain lab work at next visit Encouraged counselingDiscussed treatment plan; patient is agreeable and accepting of treatment plan. Patient denies further questions or concerns at this time. The Patient/Guardian asked appropriate questions, appeared to understand the answers, and decided to accept the treatment and continue being followed.The Patient/Guardian is aware of the need to contact the office or return for an earlier appointment if any problems or concerns arise. May also contact the [place] ([facility]), refer to the closest emergency room or call 911 if new symptoms arise of existing symptoms worsen; the Patient/Guardian is aware that this would apply to symptoms such as: suicidal ideation, homicidal ideation, high risk behaviors, manic symptoms, psychotic symptoms, physical symptoms, or any other symptoms that may be dangerous to self or others. Instructed pt and aunt that this provider will be leaving [facility] as of 06/06/2024, and she will be transitioned to a new provider at that time. Plan Of Treatment Pending Test Test Name Order Date Bilirubin, Total 12/23/2016 Insulin, Fasting 12/23/2016 Hemoglobin 12/23/2016 Hematocrit 12/23/2016 Hemoglobin A1c* 12/23/2016 GGT 12/23/2016 Lipid Panel With LDL/HDL Ratio 7 TSH reflex to T4F 12/23/2016 Hepatic Function Panel (7)* 12/23/2016 CMP14+LP+CBC/D/Plt+T4+TSH 12/23/2016 Insurance Providers Payer Name Payer Address Payer Phone Subscriber Number Group Number Insured Name Patient Relationship to Insured Coverage Start Date Coverage End Date [employer] [address] [place] [address] [id number] Krystal Armijo Self - patient is the insured 0 [employer] [address] [place] [address] [id number] Krystal Armijo Self - patient is the insured 6 Medications Administered Medication Instructions Date of Administration Dosage Notes [facility] 11/05/2016 400 mg Medical Support Assistant-[employer] Client tolerated injection well. Abiliy Maintena 12/03/2016 400 mg Medical Support Assistant: [employer] Pt tolerated well...no ASE noted at this time Abiliy Maintena 12/23/2016 400 mg Medical Support Assistant: [employer] Pt. tolerated well. Abilify Maintena 02/04/2017 400 mg Medical Support Assistant-[employer] Pt tolerated injection well. Abilify Maintena 05/03/2017 400 mg Medical Support Assistant: [employer] Patient tolerated well. Abilify Maintena 05/31/2017 400 mg Medical Support Assistant-[employer] Pt tolerated injection well Abiliy Maintena 06/24/2017 400 mg Medical Support Assistant-[employer] Pt tolerated injection well. Abilify Maintena 07/29/2017 400 mg Manufact [employer], pt tolerated well. Abiliy Maintena 10/05/2017 400 mg Medical Support Assistant: [employer] Patient tolerated well. Abilify Maintena 03/04/2020 400 mg Medical Support Assistant-[employer] Pt tolerated injection well. Pt voiced no questions or concerns Abilify Maintena 04/04/2020 400 mg Medical Support Assistant-[employer] Pt tolerated injection well. Pt voiced no questions or concerns. Aripiprazole (Abilify) inj 06/16/2016 400 mg LOT: [id number] EXP: August 2016 Medical Support Assistant: [employer]. Carton # [id number] Patient tolerated injection well. Aripiprazole (Abilify) inj 07/15/2016 400 mg Medical Support Assistant-[employer] Client tolerated injection well. Aripiprazole (Abilify) inj 08/26/2016 2 mg Medical Support Assistant: [employer] Pt. tolerated well. Aripiprazole (Abilify) inj 10/07/2016 400 mg Medical Support Assistant: [employer] Patient tolerated well. Aripiprazole (Abilify) inj 03/08/2017 400 mg Exp: 04/2018 Lot: [id number] [employer] Patient tolerated injection well and verbalized no questions or concerns. Aripiprazole (Abilify) inj 04/05/2017 400 mg Medical Support Assistant: [employer] Pt. tolerated well. Aripiprazole (Abilify) inj 08/26/2017 400 mg Medical Support Assistant: [employer] Patient tolerated well. Aristada 05/15/2020 662 mg Manufact by Manjeet dominguez pt kolby well. Sample used. Aristada Initio 05/15/2020 675 mg Manufact by Victoria pt kolby well. Sample used. Haldol decanoate 12/15/2017 50 mg Manufact Mylan, pt tolerated well. Haldol decanoate 02/01/2018 100 mg 50mg giv en in Left Gluteus and 50mg given in Right Gluteus, pt tolerated well. Manufact Mylan Haldol decanoate 03/07/2018 150 mg Manufact , 100mg Gurwinder expires 08/11/19, Manufact 50mg Mylan expires 04/11/19, pt tolerated well. Haldol decanoate 04/06/2018 150 mg Medical Support Assistant: Judy Patient tolerated the injection well and denies questions or concerns Haldol decanoate 05/25/2018 150 mg Manufact urer-Mylar Haldol decanoate 06/22/2018 150 mg exp for 50mg 08/11/2019 Manufact Judy, pt tolerated well. Haldol decanoate 08/25/2018 150 mg exp date for 50mg 08/11/2019, Jenniffer Kim, pt tolerated well. Haldol decanoate 09/26/2018 150 mg exp for 50mg 08/11/2019, pt tolerated well. Haldol decanoate 08/19/2020 100 mg Medical Support Assistant-[place] Pt tolerated injection well. Voiced no questions or concerns Haldol decanoate 09/11/2020 100 mg Manufact by [employer]. Pt kolby well. Haldol decanoate 10/15/2020 100 mg Patient tolerated well. Haldol decanoate 11/19/2020 100 mg Medical Support Assistant-[employer] Pt tolerated injection well. Pt voiced no questions or concerns. Haldol Decanoate 12/15/2020 150 mg 50mg Lot #[id number] exp 08/11/2021 Manufact Froy. Patient tolerated well. Haldol Decanoate 01/23/2021 150 mg Pt kolby w ell. 50 mg dose Manufact by [employer]roy. Lot # [id number] Exp 08/02. Haldol Decanoate 03/31/2021 150 mg 50mg Lot #[id number] exp 10/12/2021 Manufact Froy. Patient tolerated well. Haldol Decanoate 05/12/2021 150 mg 50mg Lot [id number] exp 10/12/2021,jenniffer Douglas. Patient tolerated well. Haldol Decanoate 10/19/2021 150 mg 50mg Lot # [id number] exp 02/09/2023 jenniffer Kim. Patient tolerated well. Haldol Decanoate 12/17/2021 200 mg Patient tolerated well. Haldol Decanoate 02/10/2022 200 mg Pt kolby w ell. Invega Sustenna 06/10/2022 234 mg Pt kolby we ll. Sample used. Invega Sustenna 06/18/2022 156 mg Pt. hi ated well. Invega Sustenna 09/30/2022 234 mg Patient t olerated well. Invega Sustenna 10/27/2022 156 mg Patient t olerated well Invega Sustenna 12/17/2022 156 mg Patient t olerated well Invega Sustenna 02/03/2023 156 mg Pt kolby we ll. Manufact by [employer] Invega Sustenna 03/04/2023 234 mg Vivian Vazquez 03/04/2023 10:51:55 AM > Patient tolerated injection to the right gluteus well, no distress was observed. Invega Sustenna 04/08/2023 234 mg Patient t olerated well Invega Sustenna 06/20/2023 234 mg Pt tolera eric injection well. Invega Sustenna 07/22/2023 234 mg Patient t olerated well Invega Sustenna 09/21/2023 234 mg Patient t olerated well Invega Sustenna 10/19/2023 234 mg Pt tolera eric injection well. Invega Sustenna 02/22/2024 156 mg Patient t olerated well Invega Sustenna 03/21/2024 234 mg Patient t olerated well Invega Sustenna 04/25/2024 234 mg Patient t olerated well Invega Sustenna 05/23/2024 234 mg Patient t olerated well Invega Sustenna 06/29/2024 234 mg Pt kolby we ll. Invega Sustenna 08/31/2024 234 mg Patient t olerated well Invega Sustenna 09/28/2024 234 mg Patient t olerated well Invega Sustenna 10/26/2024 234 mg Patient t olerated well Perseris (Risperidone XR) 01/30/2019 120 mg Medical Support Assistant: [employer] Administered subcutaneously to the right abdomen. Pt tolerated the injection well. She denied questions or concerns. Perseris (Risperidone XR) 03/02/2019 120 mg Medical Support Assistant: [employer]iv[employer] Patient tolerated well. give subcutaneus in Left abdomen Perseris (Risperidone XR) 03/30/2019 120 mg Medical Support Assistant- In divior Perseris (Risperidone XR) 04/27/2019 120 mg Medical Support Assistant: indivior. Pt tolerated well. Perseris (Risperidone XR) 05/24/2019 120 mg Manufact Indivio r, given subcutaneous in right abdomen, pt tolerated well. Perseris (Risperidone XR) 06/28/2019 120 mg Manufact by fortino vior pt kolby well. Given in left abd. Perseris (Risperidone XR) 08/23/2019 120 mg Medical Support Assistant-Indivior Pt tolerated injection well. Voice dno questions or concerns Perseris (Risperidone XR) 10/18/2019 120 mg Manufact by [employer] Pt kolby well. Given in left upper subq abd area. Perseris (Risperidone XR) 11/20/2019 120 mg Manufact by [employer]. Pt kolby well. Injection given in Right lower abd. Perseris (Risperidone XR) 01/03/2020 120 mg Manufact by [employer] Pt kolby well. Subq left abd Medical (General) History Medical History History ICD Code Other halfway (current) drug therapy Other halfway (current) drug therapy Schizophrenia, paranoid type F20.0 uterine fibroid Surgical History Surgery Date(Month/Year) TOTAL HYSTERECTOMY 2021 Hospitalization History Reason Date(Month/Year) [facility] ER visit for asthma December 2023 psychosis 07/19-
--- OUTSIDE RECORDS SUMMARY | 2024-11-15 15:54 | XMS_ITS | Referral Summary ---
Author Organization [facility] Address [address] [place] [address] Care Team Providers Care Clay Miner Name Role Phone Rene Oliveros MD Unavailable [phone] No, Physician Primary Care Provider [phone] Allergies No known active allergies Medications haloperidoL [...] milestones. Reviewed activity restrictions. Reviewed benign pathology. [place] removed. Recommend interdry. RTC 4 weeks for cuff check. 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 Onc 6 week postop visit 12/19/20: Cuff [...] on file Legal Sex Female 8:52 AM DATABASE CONSULTANT Gender Identity Not on file Sexual Orientation [...] REFLEX TO GENOTYPING Routine 08/27/2020 3:55 PM DATABASE CONSULTANT from Last 3 Months or Most Recently Relevant to Health Maintenance Results * Pap and High Risk HPV, reflex to Genotyping (08/27/2020 3:55 PM DATABASE CONSULTANT) 08/27/2020 3:55 PM DATABASE CONSULTANT 08/27/2020 5:19 PM DATABASE CONSULTANT [facility] SYSTEM - 09/03/2020 12:33 PM DATABASE CONSULTANT [facility] results best viewed via link to PDF [facility] Surgical Pathology [address] [place], [place] [id number] CYTOPATHOLOGY REPORT FINAL Patient Name: KRYSTAL ARMIJO Gender: F : 1990 (Age: 29) Address: [address] [place] [address] Hospital #: [id number] Service: SPORTS INFORMATION DIRECTOR Location: [facility] Patient Type: [facility] Ancillary Taken: 08/27/2020 Received: 08/27/2020 Accessioned: [...] 68. This HPV test was performed at [facility] in [place], [place] utilizing the Gen-Probe Aptima assay. 09/03/2020 12:33 Ann Galindo [place](ASCP) Report Electronically Reviewed and Signed Out By [...] mass. The HPV test was performed by [facility], [address] [place] [address]. Report Images and scanned documents, if included only viewable in PDF version The performance characteristics of some immunohistochemical stains, in-situ hybridization and fluorescence in-situ hybridization tests and immunophenotyping by flow cytometry cited in this report (if any) were determined by the Surgical Pathology Department at [facility] as part of an ongoing quality assurance lab technician program and in compliance with federally mandated [...] determined by the Surgical Pathology Department of [facility]. It has not been cleared or approved by the U. S. Food and Drug Administration. Ld Villarreal MD LAB CYTOLOGY ORDERABLES Final Result [facility] [address] [place] [address] from Last 3 Months or Most Recently Relevant to Health Maintenance Insurance [place] Advance Directives For more information, please contact: [phone] Documents on File Type Date Recorded Patient Funeral Home Makeup Artist Expl anation ADVANCE DIRECTIVE 11/04/2020 6:27 AM Power of Specialty Plant Supervisor-Medical * Full Code (Latest Code Status on File) Date Activated Date Inactivated Comments 11/04/2020 1:26 PM 11/06/2020 7:49 PM Care Teams Clay Miner Relationship Specialty Start Date End Date No, Physician PCP - General 08/27/20 Rene Oliveros MD [address] [place] [address] Referring Physician Obstetrics and Gynecology 08/14/20
--- OUTSIDE RECORDS SUMMARY | 2024-11-15 15:54 | XMS_ITS | Clinical Summary ---
Author Organization [facility] Address [address] [place] [address] Care Team Providers Care Can Sealer Name Role Phone Rene Oliveros MD Unavailable [phone] No, Physician Primary Care Provider [phone] Allergies No known active allergies Medications haloperidoL [...] milestones. Reviewed activity restrictions. Reviewed benign pathology. [place] removed. Recommend interdry. RTC 4 weeks for cuff check. 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 Onc 6 week postop visit 12/19/20: Cuff [...] on file Legal Sex Female 8:52 AM ENGINE TESTER Gender Identity Not on file Sexual Orientation [...] REFLEX TO GENOTYPING Routine 08/27/2020 3:55 PM ENGINE TESTER from Last 3 Months or Most Recently Relevant to Health Maintenance Results * Pap and High Risk HPV, reflex to Genotyping (08/27/2020 3:55 PM ENGINE TESTER) 08/27/2020 3:55 PM ENGINE TESTER 08/27/2020 5:19 PM ENGINE TESTER [facility] LAB SYSTEM - 09/03/2020 12:33 PM ENGINE TESTER EPIC results best viewed via link to PDF [facility] Tsering [facility] of Surgical Pathology [place], [place] [id number] CYTOPATHOLOGY REPORT FINAL Patient Name: KRYSTAL ARMIJO Gender: F : 1990 (Age: 29) Address: [address] [place] [address] Hospital #: [id number] Service: VENDING MACHINE SERVICER Location: [facility] Patient Type: [facility] Ancillary Taken: 08/27/2020 Received: 08/27/2020 Accessioned: 08/28/2020 [...] 68. This HPV test was performed at [facility] in [place], [place] utilizing the Gen-Probe Aptima assay. 09/03/2020 [...] mass. The HPV test was performed by [facility], [address] [place] [address]. Report Images and scanned documents, if included only viewable in PDF version The performance characteristics of some immunohistochemical stains, in-situ hybridization and fluorescence in-situ hybridization tests and immunophenotyping by flow cytometry cited in this report (if any) were determined by the Surgical Pathology Department at [facility] as part of an ongoing quality control systems manager program and in compliance with federally mandated [...] determined by the Surgical Pathology Department of [facility]. It has not been cleared or approved by the U. S. Food and Drug Administration. Ld Villarreal MD LAB CYTOLOGY ORDERABLES Final Result [facility] [address] [place], [place] [id number], [facility] from Last 3 Months or Most Recently Relevant to Health Maintenance Insurance [place] [address] Advance Directives For more information, please contact: [phone] Documents on File Type Date Recorded Patient Coater Carbon Paper Expl anation ADVANCE DIRECTIVE 11/04/2020 6:27 AM Power of Hooker Up-Medical * Full Code (Latest Code Status on File) Date Activated Date Inactivated Comments 11/04/2020 1:26 PM 11/06/2020 7:49 PM Care Teams Can Sealer Relationship Specialty Start Date End Date No, Physician PCP - General 08/27/20 Rene Oliveros MD [address] [place] [address] Referring Physician Obstetrics and Gynecology 08/14/20
== END 2024-11-15 14:39 | disposition left against medical advice (07) ==
DX: R51.9 Headache, unspecified (principal)
CPT/HCPCS: 99199

== ENCOUNTER 2025-03-24 15:43 | Emergency (ER) | payer OTHER, SELFPAY ==
--- OUTSIDE RECORDS SUMMARY | 2025-03-24 15:44 | XMS_ITS | Clinical Summary ---
Author Organization [facility] Address [address] [place] [address] Care Team Providers Care Locomotive Inspector Name Role Phone Rene Oliveros MD Unavailable [phone] No, Physician Primary Care Provider [phone] Allergies No known active allergies Medications haloperidoL [...] milestones. Reviewed activity restrictions. Reviewed benign pathology. [place] removed. Recommend interdry. RTC 4 weeks for cuff check. Miner Operator Onc 6 week postop visit 12/19/20: Cuff [...] on file Legal Sex Female 8:52 AM ARMHOLE RAISER LOCKSTITCH Gender Identity Not on file Sexual Orientation [...] 11:07 PM CDT Height 157.5 cm (5' 2) 01/13/2024 11:07 PM CDT Body Mass Index 36.81 01/13/2024 11:07 PM CDT Plan of Treatment Health Maintenance Due Date Last Done Comments Depression Screening 1989 Hepatitis C Screening 1989 Varicella Vaccines (1 of 2 - 13+ 2-dose series) 2002 Hepatitis B Screening 2007 Regular Well Visit/Exam 18-64 2007 Cervical Cancer Screening 08/27/2021 08/27/2020 Covid-19 Vaccine (2 - 2023-2 5 season) 2024 02/11/2021 Influenza Vaccine (Season Ended) 2025 05/04/2021, 07/20/2020, 10/02/2015 DTaP/Tdap/Td Vaccine (2 - Td or Tdap) 10/02/2025 10/02/2015 HPV Vaccines Aged Out No longer eligi ble based on patient's age to complete this topic Pneumococcal vaccine <65 Aged Out No longer eligible based on patient's age to complete this topic Procedures Procedure Name Priority Date/Time Associated Diagnosis Comments PAP AND HIGH RISK HPV, REFLEX TO GENOTYPING Routine 08/27/2020 3:55 PM ARMHOLE RAISER LOCKSTITCH from Last 3 Months or Most Recently Relevant to Health Maintenance Results * Pap and High Risk HPV, reflex to Genotyping (08/27/2020 3:55 PM ARMHOLE RAISER LOCKSTITCH) 08/27/2020 3:55 PM ARMHOLE RAISER LOCKSTITCH 08/27/2020 5:19 PM ARMHOLE RAISER LOCKSTITCH [facility] - 09/03/2020 12:33 PM ARMHOLE RAISER LOCKSTITCH EPIC results best viewed via link to PDF [facility] [place] [address] CYTOPATHOLOGY REPORT FINAL Patient Name: KRYSTAL ARMIJO Gender: Erlinda : 1990 (Age: 29) Address: [address] [place] [address] Hospital #: [id number] Service: RAILROAD DETECTIVE Location: [facility] Patient Type: [facility] Ancillary Taken: 08/27/2020 Received: 08/27/2020 Accessioned: 08/28/2020 [...] 68. This HPV test was performed at [facility] in [place], [place] utilizing the Gen-Probe Aptima assay. 09/03/2020 [...] mass. The HPV test was performed by [facility], [address] [place] [address]. Report Images and scanned documents, if included only viewable in PDF version The performance characteristics of some immunohistochemical stains, in-situ hybridization and fluorescence in-situ hybridization tests and immunophenotyping by flow cytometry cited in this report (if any) were determined by the Surgical Pathology Department at [facility] as part of an ongoing quality control microbiology supervisor program and in compliance with federally mandated [...] determined by the Surgical Pathology Department of [facility]. It has not been cleared or approved by the U. S. Food and Drug Administration. Ld Villarreal MD LAB CYTOLOGY ORDERABLES Final Result [facility] [address] [id number] from Last 3 Months or Most Recently Relevant to Health Maintenance [place] [address] [place] [address] Advance Directives For more information, please contact: [phone] Documents on File Type Date Recorded Patient Photograph Finisher Expl anation ADVANCE DIRECTIVE 11/04/2020 6:27 AM Power of Real Estate Sales Supervisor-Medical * Full Code (Latest Code Status on File) Date Activated Date Inactivated Comments 11/04/2020 1:26 PM 11/06/2020 7:49 PM Care Teams Locomotive Inspector Relationship Specialty Start Date End Date No, Physician PCP - General 08/27/20 Rene Oliveros MD [address] [place] [address] Referring Physician Obstetrics and Gynecology 08/14/20
--- OUTSIDE RECORDS SUMMARY | 2025-03-24 15:45 | XMS_ITS ---
Author Organization [facility] Address [address] [place] [address] Care Team Providers Care Hand Polisher Name Role Phone Royal Gee Primary Care Provider REASON FOR VISIT 4 week F/U Medications Medication SIG (Take, Route, Frequency, Duration) Notes Start Date End Date Status traZODone HCl 150 MG 1.5 tablet at bedti me Orally at night; Duration: 30 days Active Prazosin HCl 5 MG 1 capsule at bedtime Orally Once a day; Duration: 30 days Active Propranolol HCl ER 60 MG 1 capsule Orall y Once a day; Duration: 30 days Active Sertraline HCl 100 MG 1 tablet Orally On ce a day; Duration: 30 days Active ARIPiprazole 20 MG 1 tablet Orally Once a day; Duration: 30 days Active Invega Sustenna 156 MG/ML 1 mL Intramuscular; Duration: 30 days 02/22/2024 Not-Taking Propranolol HCl 10 MG 1 tablet Orally tw ice daily as needed for anxiety; Duration: 90 days Active buPROPion HCl ER (XL) 150 MG 1 tablet in the morning Orally Once a day; Duration: 30 days Active Invega Sustenna 234 MG/1.5ML 1 mL Intramuscular monthly; Duration: 1 days Active Social History Sex Assigned At : Social History Observation Description Sex Assigned At Female Encounters Encounter Location Date Provider Diagnosis [address] [place] [address] 02/20/2025 Royal Gee Plan Of Treatment Next Appt Details Provider Name:Aissatou Nguyen , 03/25/2025 01:20:00 PM, [address], [place], [address], Progress Notes * Krystal ARMIJODOB:1990 (34 yo F)Acc No.[id number]:02/20/2025 UNLOCKED PROGRESS NOTE Patient: Krystal STEVENSON Provider: Yadira Gee APN :1990 A ge:34 Y S ex:Female Date:02/20/2025 Address:[address] [place], [place] [id number] Subjective: * Chief Complaints: * 1 . 4 week F/U. * Medical History: * Medications: T aking Propranolol HCl 10 MG Tablet 1 tablet Orally twice daily as needed for anxiety , Taking Invega Sustenna 234 MG/1.5ML Suspension Prefilled Syringe 1 mL Intramuscular monthly , Taking buPROPion HCl ER (XL) 150 MG Tablet Extended Release 24 Hour 1 tablet in the morning Orally Once a day , Taking Prazosin HCl 5 MG Capsule 1 capsule at bedtime Orally Once a day , Taking traZODone HCl 150 MG Tablet 1.5 tablet at bedtime Orally at night , Taking ARIPiprazole 20 MG Tablet 1 tablet Orally Once a day , Taking Sertraline HCl 100 MG Tablet 1 tablet Orally Once a day , Taking Propranolol HCl ER 60 MG Capsule Extended Release 24 Hour 1 capsule Orally Once a day , Not-Taking Invega Sustenna 156 MG/ML Suspension Prefilled Syringe 1 mL Intramuscular Objective: * Vitals: Assessment: Plan: * Treatment: * * Electronic signature of Royal Gee on 03/24/2025 at 03:45 PM CDT Sign off status: Pending * Provider: Yadira Gee APN Date: 02/20/2025 Generated for Fanny villarreal/Rigoberto/Sumit on: 03/24/2025 03:45 PM CDT
--- OUTSIDE RECORDS SUMMARY | 2025-03-24 15:45 | XMS_ITS ---
Author Organization [facility] Address [address] [place] [address] Care Team Providers Care Structural Iron Erector Name Role Phone Royal Gee Primary Care Provider [phone] Abbie Pearson Unavailable [phone] Allergies No Known Allergies REASON FOR VISIT please call [phone] from [email or web address]- needs 40 mins Medications Medication SIG (Take, Route, Frequency, Duration) Notes Start Date End Date Status Sertraline HCl 100 MG 1 tablet Orally On ce a day; Duration: 30 days Unknown ARIPiprazole 20 MG 1 tablet Orally Once a day; Duration: 30 days Unknown Invega Sustenna 156 MG/ML 1 mL Intramusc ular; Duration: 30 days 02/22/2024 Unknown Propranolol HCl ER 60 MG 1 capsule Orall y Once a day; Duration: 30 days Unknown traZODone HCl 150 MG 1.5 tablet at bedti me Orally at night; Duration: 30 days Unknown Invega Sustenna 234 MG/1.5ML 1 mL Intramuscular monthly; Duration: 1 days Unknow n Propranolol HCl 10 MG 1 tablet Orally tw ice daily as needed for anxiety; Duration: 90 days Unkno wn Prazosin HCl 5 MG 1 capsule at bedtime Orally Once a day; Duration: 30 days Unknown buPROPion HCl ER (XL) 150 MG 1 tablet in the morning Orally Once a day; Duration: 30 days Unknown Social History Sex Assigned At : Social History Observation Description Sex Assigned At Female Encounters Encounter Location Date Provider Diagnosis [facility] [address] [place] [address] 02/25/2025 Abbie Pearson Plan Of Treatment Next Appt Details Provider Name:Aissatou Nguyen , 03/25/2025 01:20:00 PM, [address] [facility] [address] [address], [place], [address], Progress Notes * Krystal ARMIJODOB:1990 (34 yo F)Acc No.[id number]:02/25/2025 UNLOCKED PROGRESS NOTE Patient: Krystal STEVENSON Provider: Abilio Pearson, MSN, IRON BENDER, PMHNP-BC :1990 A ge:34 Y S ex:Female Date:02/25/2025 Address:[address] [place], [place] [id number] Pcp:Royal Gee Subjective: * Chief Complaints: * 1 . please call [phone] from Royal- needs 40 mins. * Medical History: O ther follow up specialist (current) drug therapy, Other follow up specialist (current) drug therapy, Schizophrenia, paranoid type, Uterine fibroid. * Surgical History: T OTAL HYSTERECTOMY 2021. * Hospitalization/Major Diagno stic Procedure: p sychosis 07/19-, [facility] ER visit for asthma December 2023. * Family History: M other: alive. 1 brother(s) - healthy. . Patient's aunt Deep reports that patient's father has Schizophrenia. Deep denies any family history of suicide. Deep denies any family history of alcohol or drug abuse. * Social History: P rimary Social History: L iving Arrangement L iving Arrangement: D ependent Living, L iving with: P arent(s), I s this a supportive environment? Y es. A lcohol Use A lcohol Use Frequency: N ever. I llicit Substance Usage I llicit Substance Usage: N o. E mployment Status E mployment Status: O n Disability. * Medications: U nknown Propranolol HCl 10 MG Tablet 1 tablet Orally twice daily as needed for anxiety , Unknown Invega Sustenna 234 MG/1.5ML Suspension Prefilled Syringe 1 mL Intramuscular monthly , Unknown buPROPion HCl ER (XL) 150 MG Tablet Extended Release 24 Hour 1 tablet in the morning Orally Once a day , Unknown Prazosin HCl 5 MG Capsule 1 capsule at bedtime Orally Once a day , Unknown traZODone HCl 150 MG Tablet 1.5 tablet at bedtime Orally at night , Unknown ARIPiprazole 20 MG Tablet 1 tablet Orally Once a day , Unknown Sertraline HCl 100 MG Tablet 1 tablet Orally Once a day , Unknown Propranolol HCl ER 60 MG Capsule Extended Release 24 Hour 1 capsule Orally Once a day , Unknown Invega Sustenna 156 MG/ML Suspension Prefilled Syringe 1 mL Intramuscular * Allergies: N .K.D.A. Objective: * Vitals: Assessment: Plan: * Treatment: * * Electronic signature of Alyse Pearson on 03/24/2025 at 03:44 PM CDT Sign off status: Pending * Provider: Abilio Pearson, CESAR, IRON BENDER, PMHNP-BC Date: 02/25/2025 Generated for Printing/Faxing/eTransmitting on: 03/24/2025 03:44 PM CDT
--- OUTSIDE RECORDS SUMMARY | 2025-03-24 15:45 | XMS_ITS | Patient Health Record ---
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 Name Role Phone Royal Gee Primary Care Provider Stacy Montague Unavailable [phone] Lila Mann Unavailable [phone] Abbie Pearson Unavailable [phone] Allergies No Known Allergies Reason For Referral No Information Medications Medication SIG (Take, Route, Frequency, Duration) Notes Start Date End Date Status Invega Sustenna 234 MG/1.5ML 1 mL Intramuscular monthly; Duration: 1 days Unknow n Propranolol HCl 10 MG 1 tablet Orally tw ice daily as needed for anxiety; Duration: 90 days Unkno wn Sertraline HCl 100 MG 1 tablet Orally [...] Orally at night; Duration: 30 days Unknown Prazosin HCl 5 MG 1 capsule at bedtime Orally Once a day; Duration: 30 days Unknown buPROPion HCl ER (XL) 150 MG 1 tablet in the morning Orally Once a day; Duration: 30 days Unknown Immunizations Vaccine Route Administration Date Status Comme nts FLU VAC NO PRSV 4VAL 6 mo+ IM Intramuscular 08/23/2019 Administered Patient tolerated well. Influenza, virus vaccine, trivalent, preservative free IM Intramuscular 08/31/2024 Administered Patient dane reyes well Social History Tobacco Use: Social History Observation Description Date Details (start date - stop date) Never Smoker NA - NA Sex Assigned At : Social History Observation Description Sex Assigned At Female Tobacco Control (Standard) Question Answer Notes Tobacco use: Nonsmoker Section Notes: Problems Problem Type SNOMED Code ICD Code Onset Dates Problem Status W/U Status Risk Notes Problem Paranoid schizophrenia (32719363) Paranoid schizophrenia (F20.0) Active confirmed Problem Posttraumatic stress disorder (22035563) PTSD (post-traumatic stress disorder) (F43.10) Active confirmed Problem Anxiety (67381360) Anxiety (F41.9) Active confirmed Problem Overweight (757974154) Over weight (E66.3) Active confirmed Problem Severe recurrent major depression without psychotic features (73542251) Severe episode of recurrent major depressive disorder, without psychotic features (F33.2) 11/20/19 Active confirmed Problem Nightmares (238024125) Nightmares (F51.5) Active confirmed Problem Paranoid schizophrenia (18889861) Schizophrenia, paranoid type (F20.0) Active confirmed Problem Difficulty sleeping (468118223) Sleeping difficulty (G47.9) Active confirmed Problem Moderate recurrent major depression (38812934) Depression, major, recurrent, moderate (F33.1) 03/31/20 Active confirmed Problem Obesity (441722867) Obesity, unspecified classification, unspecified obesity type, unspecified whether serious comorbidity present (E66.9) Active confirmed Vital Signs Heart Rate 84 /min 02/20/2025 Temperature 98.9 degrees Fahrenheit 11/23/2024 Respiratory Rate 16 /min 02/20/2025 Blood pressure diastolic 84 mm Hg 02/20/2025 Oximetry 98 % 02/20/2025 Height 62 in 02/20/2025 Blood pressure systolic 128 mm Hg 02/20/2025 Weight 202 lbs 02/20/2025 BMI 36.94 kg/m2 02/20/2025 Encounters Encounter Location Date Provider Diagnosis [address] [place] [address] 04/25/2024 Lila Mann Nutritional counseling Z71.3 ; Schizophrenia, paranoid type F20.0 and Depression, major, recurrent, moderate F33.[address] [address] 05/23/2024 Lila Mann Nutritional counseling Z71.3 ; Schizophrenia, paranoid type F20.0 and Depression, major, recurrent, moderate F33.[address] [address] 06/29/2024 Stacy Montague Paranoid schizophrenia F20.[address] [address] 08/31/2024 Royal Gee Schizophrenia, paranoid type F20.0 ; Anxiety F41.9 ; Depression, major, recurrent, moderate F33.1 ; PTSD (post-traumatic stress disorder) F43.10 ; Nightmares F51.5 ; Sleeping difficulty G47.9 ; Encounter for immunization Z23 and Nutritional counseling Z71.[address] [address] 09/28/2024 Royal Gee Anxiety F41.9 ; Schizophrenia, paranoid type F20.0 ; Depression, major, recurrent, moderate F33.1 ; PTSD (post-traumatic stress disorder) F43.10 ; Nightmares F51.5 ; Sleeping difficulty G47.9 ; Encounter for immunization Z23 and Nutritional counseling Z71.[address] [address] 10/26/2024 Royal Gee Schizophrenia, paranoid type F20.0 ; Anxiety F41.9 ; Depression, major, recurrent, moderate F33.1 ; PTSD (post-traumatic stress disorder) F43.10 ; Nightmares F51.5 ; Sleeping difficulty G47.9 ; Encounter for immunization Z23 and Nutritional counseling Z71.[address] [address] 11/23/2024 Royal Gee Schizophrenia, paranoid type F20.[address] [address] 12/21/2024 Royal Gee Schizophrenia, paranoid type F20.0 ; Anxiety F41.9 ; Depression, major, recurrent, moderate F33.1 ; PTSD (post-traumatic stress disorder) F43.10 ; Nightmares F51.5 ; Sleeping difficulty G47.9 ; Encounter for immunization Z23 ; Over weight E66.3 and Nutritional counseling Z71.[address] [place] [address] 01/18/2025 Royal Gee Anxiety F41.9 ; Schizophrenia, paranoid type F20.0 ; Depression, major, recurrent, moderate F33.1 ; PTSD (post-traumatic stress disorder) F43.10 ; Nightmares F51.5 and Sleeping difficulty G47.[address] [address] 02/20/2025 Royal Gee [address] [address] 04/19/2024 Lila Mann Schizophrenia, paranoid type F20.[address] [place] [address] 07/17/2024 Royal Gee [address] [address] 11/23/2024 Royal Gee Schizophrenia, paranoid type F20.[address] [address] 02/25/2025 Abbie Pearson Assessments Encounter Date Diagnosis (ICD Code) Assessment Notes Treatment Notes Treatment Clinical Notes Section Notes 11/23/2024 Schizophrenia, paranoid type (ICD-10 - F20.0) 11/23/2024 Schizophrenia, paranoid type (ICD-10 - F20.0) 01/18/2025 Anxiety (ICD-10 - F41.9) Duration (acute/chronic), stability (controlled/uncontrol led): Chronic, improvement with recent medication adjustments, still room for improvement, see HPI Current medications/efficacy: Somewhat, room for improvement Previous medication trials: Ingrezza, Haldol, Abilify, Prolixin, invega, Risperdal, Aristida, Zyprexa. Current/previous therapies: Denies currently - doesn't feel this is necessary at this time Examination as documented - see pertinent aspects of office visit documentation. Pertinent diagnostics: LABS COMPLETED IN 10/2023, SEE CHART - ALSO MONITORED BY PCP. Differential diagnoses: RECOMMENDATIONS: INCREASE aripriprazole as prescribed to assist further with mood/stability/halluc inations - [...] to the emergency department, or contact the [facility] Crisis Unit/Team. Follow up as scheduled in 4 weeks or sooner if necessary. Follow up with PCP and/or other specialists as advised. NEXT STEP: Consider medication adjustments as needed. 12/21/2024 Anxiety (ICD-10 - F41.9) Duration (acute/chronic), stability (controlled/uncontrol led): Chronic, improvement with recent medication adjustments, still room for improvement, see HPI Current medications/efficacy: Somewhat, room for improvement Previous medication trials: Ingrezza, Haldol, Abilify, Prolixin, invega, Risperdal, Aristida, Zyprexa. Current/previous therapies: Denies currently - doesn't feel this is necessary at this time Examination as documented - see pertinent aspects of office visit documentation. Pertinent diagnostics: LABS COMPLETED IN 10/2023, SEE CHART - ALSO MONITORED BY PCP. Differential diagnoses: RECOMMENDATIONS: INCREASE sertraline as prescribed to assist with anxiety/depression - educated patient/guardian on adverse effects, risks and benefits, as well as alternative treatments INCREASE propranolol and switch to ER formiulation as prescribed to assist with anxiety - [...] health CRISIS, please reach out to [phone] ([facility]), 911, go to the emergency department, or contact the [facility] Crisis Unit/Team. Follow up as scheduled in 4 weeks or sooner if necessary. Follow up with PCP and/or other specialists as advised. NEXT STEP: Consider medication adjustments as needed. 12/21/2024 Schizophrenia, paranoid type (ICD-10 - F20.0) Duration (acute/chronic), stability (controlled/uncontrol led): Chronic, improvement with recent medication adjustments, still room for improvement, see HPI Current medications/efficacy: Somewhat, room for improvement Previous medication trials: Ingrezza, Haldol, Abilify, Prolixin, invega, Risperdal, Aristida, Zyprexa. Current/previous therapies: Denies currently - doesn't feel this is necessary at this time Examination as documented - see pertinent aspects of office visit documentation. Pertinent diagnostics: LABS COMPLETED IN 10/2023, SEE CHART - ALSO MONITORED BY PCP. Differential diagnoses: RECOMMENDATIONS: INCREASE sertraline as prescribed to assist with anxiety/depression - educated patient/guardian on adverse effects, risks and benefits, as well as alternative treatments INCREASE propranolol and switch to ER formiulation as prescribed to assist with anxiety - [...] to the emergency department, or contact the [facility] Crisis Unit/Team. Follow up as scheduled in 4 weeks or sooner if necessary. Follow up with PCP and/or other specialists as advised. NEXT STEP: Consider medication adjustments as needed. 10/26/2024 Schizophrenia, paranoid [...] to the emergency department, or contact the [facility] Crisis Unit/Team. Follow up as scheduled in 4 weeks or sooner if necessary. Follow up with PCP and/or other specialists as advised. NEXT STEP: Consider medication adjustments as needed. 09/28/2024 Anxiety (ICD-10 [...] to the emergency department, or contact the [facility] Crisis Unit/Team. Follow up as scheduled in [...] to the emergency department, or contact the [facility] Crisis Unit/Team. Follow up as scheduled in [...] to the emergency department, or contact the [facility] Crisis Unit/Team. Follow up as scheduled [...] to the emergency department, or contact the [facility] Crisis Unit/Team. Follow up as scheduled or sooner if necessary. Follow up with PCP and/or other specialists as advised. NEXT STEP: Consider increasing aripiprazole as needed. Consider other medication adjustments as needed. 06/29/2024 Paranoid schizophrenia (ICD-10 - F20.0) 05/23/2024 Nutritional counseling (ICD-10 - Z71.3) 04/25/2024 Nutritional counseling (ICD-10 - Z71.3) 04/19/2024 Schizophrenia, paranoid type (ICD-10 - F20.0) 04/25/2024 Schizophrenia, paranoid type (ICD-10 - F20.0) Last injection completed 02/24/2024. Pt continues with AH and VH but reports decrease since last visit. Pt appeas to be responding less to hallucinations during this visit. . Denies SI/HI at this time. Will have pt obtain injection today; pt will receive 234mg injection today. Will continue oral Invega at this time. 05/23/2024 Schizophrenia, paranoid type (ICD-10 - F20.0) Last injection completed 04/25/2024. Pt continues with AH and VH; whalen top oral Invega and start oral Abilify at this time. Pt reports that she tolerated Abilify well in the past. Pt appears to be responding less to hallucinations at times during this visit. . Denies SI/HI at this time. 08/31/2024 Depression, major, recurrent, moderate (ICD-10 - F33.1) See assessment and plan for anxiety 09/28/2024 Depression, major, recurrent, moderate (ICD-10 - F33.1) See assessment and plan for anxiety 12/21/2024 Depression, major, recurrent, moderate (ICD-10 - F33.1) [...] to the emergency department, or contact the [facility] Crisis Unit/Team. Follow up as scheduled in 4 weeks or sooner if necessary. Follow up with PCP and/or other specialists as advised. NEXT STEP: Consider medication adjustments as needed. 01/18/2025 Schizophrenia, paranoid type (ICD-10 - F20.0) Duration (acute/chronic), stability (controlled/uncontrol led): Chronic, improvement with recent medication adjustments, still room for improvement, see HPI Current medications/efficacy: Somewhat, room for improvement Previous medication trials: Ingrezza, Haldol, Abilify, Prolixin, invega, Risperdal, Aristida, Zyprexa. Current/previous therapies: Denies currently - doesn't feel this is necessary at this time Examination as documented - see pertinent aspects of office visit documentation. Pertinent diagnostics: LABS COMPLETED IN 10/2023, SEE CHART - ALSO MONITORED BY PCP. Differential diagnoses: RECOMMENDATIONS: INCREASE aripriprazole as prescribed to assist further with mood/stability/halluc inations - [...] health CRISIS, please reach out to [phone] ([facility]), 911, go to the emergency department, or contact the [facility] Crisis Unit/Team. Follow up as scheduled in 4 weeks or sooner if necessary. Follow up with PCP and/or other specialists as advised. NEXT STEP: Consider medication adjustments as needed. 01/18/2025 Depression, major, recurrent, moderate (ICD-10 - F33.1) See assessment and plan for anxiety 12/21/2024 PTSD (post-traumatic stress disorder) (ICD-10 - F43.10) See assessment and plan for anxiety 10/26/2024 Depression, major, recurrent, moderate (ICD-10 - F33.1) See assessment and plan for anxiety 09/28/2024 PTSD (post-traumatic stress disorder) (ICD-10 - F43.10) See assessment and plan for anxiety 05/23/2024 Depression, major, recurrent, moderate (ICD-10 - [...] F43.10) See assessment and plan for anxiety 12/21/2024 Nightmares (ICD-10 - F51.5) See assessment and plan for anxiety 01/18/2025 PTSD (post-traumatic stress disorder) (ICD-10 - F43.10) See assessment and plan for anxiety 01/18/2025 Nightmares (ICD-10 - F51.5) See assessment and plan for anxiety 10/26/2024 Nightmares (ICD-10 - F51.5) See assessment and plan for anxiety 12/21/2024 Sleeping difficulty (ICD-10 - G47.9) See assessment and plan for anxiety 09/28/2024 Sleeping difficulty (ICD-10 - G47.9) See assessment and plan for anxiety 08/31/2024 Sleeping difficulty (ICD-10 - G47.9) See assessment and plan for anxiety 08/31/2024 Encounter for immunization (ICD-10 - Z23) Ordered per standing orders for administering influenza vaccine to adults. 09/28/2024 Encounter for immunization (ICD-10 - Z23) Ordered per standing orders for administering influenza vaccine to adults. 10/26/2024 Sleeping difficulty (ICD-10 - G47.9) See assessment and plan for anxiety 12/21/2024 Encounter for immunization (ICD-10 - Z23) Ordered per standing orders for administering influenza vaccine to adults. 01/18/2025 Sleeping difficulty (ICD-10 - G47.9) See assessment and plan for anxiety 12/21/2024 Over weight (ICD-10 - E66.3) 10/26/2024 Encounter for immunization (ICD-10 - Z23) Ordered per standing orders for administering influenza vaccine to adults. 09/28/2024 Nutritional counseling (ICD-10 - Z71.3) 08/31/2024 Nutritional counseling (ICD-10 - Z71.3) 12/21/2024 Nutritional counseling (ICD-10 - Z71.3) 10/26/2024 Nutritional counseling (ICD-10 - Z71.3) 04/25/2024 Other Discussed treat ment planDiscussed sleep [...] May also contact the 24-hour crisis hotline ([facility]), refer to the closest emergency room or [...] May also contact the 24-hour crisis hotline ([facility]), refer to the closest emergency room or [...] aunt that this provider will be leaving [facility] as of 06/06/2024, and she will be transitioned to a new provider at that time. Plan Of Treatment Pending Test Test Name Order Date Bilirubin, Total 12/23/2016 Insulin, Fasting 12/23/2016 Hemoglobin 12/23/2016 Hematocrit 12/23/2016 Hemoglobin A1c* 12/23/2016 GGT 12/23/2016 Lipid Panel With LDL/HDL Ratio 7 TSH reflex to T4F 12/23/2016 Hepatic Function Panel (7)* 12/23/2016 CMP14+LP+CBC/D/Plt+T4+TSH 12/23/2016 Next Appt Details Provider Name:Aissatou Nguyen , 03/25/2025 01:20:00 PM, [address], [place], [address], Insurance Providers Payer Name Payer Address Payer Phone Subscriber Number Group Number Insured Name Patient Relationship to Insured Coverage Start Date Coverage End Date [employer] [address] [place] [address] [id number] Cristian Armijooinette Self - patient is the insured 0 Spare Backup [address] [place] [address] [id number] [employer], Krystal Self - patient is the insured 6 Medications Administered Medication Instructions Date of Administration Dosage Notes Abilify Maintena 11/05/2016 400 mg Finish Patcher-Otsuka Client tolerated injection well. Abilify Maintena 12/03/2016 400 mg Finish Patcher: O[employer]uka Pt tolerated well...no ASE noted at this time Abilify Maintena 12/23/2016 400 mg Finish Patcher: O[employer] Pt. tolerated well. Abilify Maintena 02/04/2017 400 mg Finish Patcher-O[employer]uka Pt tolerated injection well. Abilify Maintena 05/03/2017 400 mg Finish Patcher: O[employer] Patient tolerated well. Abilify Maintena 05/31/2017 400 mg Finish Patcher-O[employer]uka Pt tolerated injection well Abilify Maintena 06/24/2017 400 mg Finish Patcher-Otsuka Pt tolerated injection well. Abilify Maintena 07/29/2017 400 mg Manufact Otsuka, pt tolerated well. Abilify Maintena 10/05/2017 400 mg Finish Patcher: O[employer]uka Patient tolerated well. Abilify Maintena 03/04/2020 400 mg Finish Patcher-O[employer]uka Pt tolerated injection well. Pt voiced no questions or concerns Abilify Maintena 04/04/2020 400 mg Finish Patcher-O[employer]uka Pt tolerated injection well. Pt voiced no questions or concerns. Aripiprazole (Abilify) inj 06/16/2016 400 mg LOT: [id number] EXP: August 2016 Finish Patcher: [employer]uka. Carton # [id number] Patient tolerated injection well. Aripiprazole (Abilify) inj 07/15/2016 400 mg Finish Patcher-ZIOPHARM Oncology Client tolerated injection well. Aripiprazole (Abilify) inj 08/26/2016 2 mg Finish Patcher: Sport[employer] Pt. tolerated well. Aripiprazole (Abilify) inj 10/07/2016 400 mg Finish Patcher: ZIOPHARM Oncology Patient tolerated well. Aripiprazole (Abilify) inj 03/08/2017 400 mg Exp: 04/2018 Lot: [id number] Otsuka Patient tolerated injection well and verbalized no questions or concerns. Aripiprazole (Abilify) inj 04/05/2017 400 mg Finish Patcher: Clear[employer] Pt. tolerated well. Aripiprazole (Abilify) inj 08/26/2017 400 mg Finish Patcher: ZIOPHARM Oncology Patient tolerated well. Aristada 05/15/2020 662 mg Manufact by Manjeet dominguez pt kolby well. Sample used. Aristada Initio 05/15/2020 675 mg Manufact by Victoria pt kolby well. Sample used. Haldol decanoate 12/15/2017 50 mg Manufact Judy, pt tolerated well. Haldol decanoate 02/01/2018 100 mg 50mg giv en in Left Gluteus and 50mg given in Right Gluteus, pt tolerated well. Manufact Judy Haldol decanoate 03/07/2018 150 mg Manufact , 100mg Gurwinder expires 08/11/19, Manufact 50mg Mylan expires 04/11/19, pt tolerated well. Haldol decanoate 04/06/2018 150 mg Finish Patcher: Judy Patient tolerated the injection well and denies questions or concerns Haldol decanoate 05/25/2018 150 mg Manufact urer-Mario Haldol decanoate 06/22/2018 150 mg exp for 50mg 08/11/2019 Manufact Judy, pt tolerated well. Haldol decanoate 08/25/2018 150 mg exp date for 50mg 08/11/2019, Manufact Judy, pt tolerated well. Haldol decanoate 09/26/2018 150 mg exp for 50mg 08/11/2019, pt tolerated well. Haldol decanoate 08/19/2020 100 mg Finish Patcher-Dyllan Pt tolerated injection well. Voiced no questions or concerns Haldol decanoate 09/11/2020 100 mg Manufact by [employer] Pt kolby well. Haldol decanoate 10/15/2020 100 mg Patient tolerated well. Haldol decanoate 11/19/2020 100 mg Finish Patcher-[employer]iSync Pt tolerated injection well. Pt voiced no questions or concerns. Haldol Decanoate 12/15/2020 150 mg 50mg Lot #[id number] exp 08/11/2021 Manufact Misael. Patient tolerated well. Haldol Decanoate 01/23/2021 150 mg Pt kolby w ell. 50 mg dose Manufact by misael. Lot # [id number] Exp 08/02. Haldol Decanoate 03/31/2021 150 mg 50mg Lot #[id number] exp 10/12/2021 Manufact Misael. Patient tolerated well. Haldol Decanoate 05/12/2021 150 mg 50mg Lot [id number] exp 10/12/2021,manufact Misael. Patient tolerated well. Haldol Decanoate 10/19/2021 150 mg 50mg Lot # [id number] exp 02/09/2023 lorraine Kim. Patient tolerated well. Haldol Decanoate 12/17/2021 200 mg Patient tolerated well. Haldol Decanoate 02/10/2022 200 mg Pt kolby w ell. Invega Sustenna 06/10/2022 234 mg Pt oklby we ll. Sample used. Invega Sustenna 06/18/2022 156 mg Pt. hi ated well. Invega Sustenna 09/30/2022 234 mg Patient t olerated well. Invega Sustenna 10/27/2022 156 mg Patient t olerated well Invega Sustenna 12/17/2022 156 mg Patient t olerated well Invega Sustenna 02/03/2023 156 mg Pt kolby we ll. Manufact by [employer] Invega Sustenna 03/04/2023 234 mg Vivian Vazquez [...] 10/26/2024 234 mg Patient t olerated well Invega Sustenna 11/23/2024 234 mg Patient t olerated well Invega Sustenna 12/21/2024 234 mg Patient t olerated well Invega Sustenna 01/18/2025 234 mg Pt. hi ated well. No questions or concerns at this time. Invega Sustenna 02/20/2025 234 mg Perseris (Risperidone XR) 01/30/2019 120 mg Finish Patcher: [employer] Administered subcutaneously to the right abdomen. Pt tolerated the injection well. She denied questions or concerns. Perseris (Risperidone XR) 03/02/2019 120 mg Finish Patcher: [employer]iv[employer] Patient tolerated well. give subcutaneus in Left abdomen Perseris (Risperidone XR) 03/30/2019 120 mg Finish Patcher- In divior Perseris (Risperidone XR) 04/27/2019 120 mg Finish Patcher: indivior. Pt tolerated well. Perseris (Risperidone XR) 05/24/2019 120 mg Manufact Indivio r, given subcutaneous in right abdomen, pt tolerated well. Perseris (Risperidone XR) 06/28/2019 120 mg Manufact by fortino vior pt kolby well. Given in left abd. Perseris (Risperidone XR) 08/23/2019 120 mg Finish Patcher-Indivior Pt tolerated injection well. 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
--- OUTSIDE RECORDS SUMMARY | 2025-03-24 15:45 | XMS_ITS | Referral Summary ---
Author Organization [facility] Address [address] [place] [address] Care Team Providers Care Vault Clerk Name Role Phone Rene Oliveros MD Unavailable [phone] No, Physician Primary Care Provider [phone] Allergies No known active allergies Medications haloperidoL [...] milestones. Reviewed activity restrictions. Reviewed benign pathology. [place] removed. Recommend interdry. RTC 4 weeks for cuff check. Senior Etl Developer Onc 6 week postop visit 12/19/20: Cuff [...] on file Legal Sex Female 8:52 AM PRESIDENT & CEO Gender Identity Not on file Sexual Orientation [...] REFLEX TO GENOTYPING Routine 08/27/2020 3:55 PM PRESIDENT & CEO from Last 3 Months or Most Recently Relevant to Health Maintenance Results * Pap and High Risk HPV, reflex to Genotyping (08/27/2020 3:55 PM PRESIDENT & CEO) 08/27/2020 3:55 PM PRESIDENT & CEO 08/27/2020 5:19 PM PRESIDENT & CEO [facility] SYSTEM - 09/03/2020 12:33 PM PRESIDENT & CEO [facility] results best viewed via link to PDF [facility] Surgical Pathology [place], [place] [id number] CYTOPATHOLOGY REPORT FINAL Patient Name: KRYSTAL ARMIJO Gender: F : 1990 (Age: 29) Address: [address] [place] [address] Hospital #: [id number] Service: VOICE SYSTEMS ENGINEER Location: [facility] Patient Type: [facility] Ancillary Taken: 08/27/2020 Received: 08/27/2020 Accessioned: 08/28/2020 [...] 68. This HPV test was performed at [facility] in [place], [place] utilizing the Gen-Probe Aptima assay. 09/03/2020 12:33 Ann Galindo [place](ASCP) Report Electronically Reviewed and Signed Out By [...] mass. The HPV test was performed by [facility], [address] [place] [address]. Report Images and scanned documents, if included only viewable in PDF version The performance characteristics of some immunohistochemical stains, in-situ hybridization and fluorescence in-situ hybridization tests and immunophenotyping by flow cytometry cited in this report (if any) were determined by the Surgical Pathology Department at [facility] as part of an ongoing director of quality control program and in compliance with federally mandated [...] determined by the Surgical Pathology Department of [facility]. It has not been cleared or approved by the U. S. Food and Drug Administration. Ld Villarreal MD LAB CYTOLOGY ORDERABLES Final Result [facility] [address] [place] [address] from Last 3 Months or Most Recently Relevant to Health Maintenance Insurance [place] Advance Directives For more information, please contact: [phone] Documents on File Type Date Recorded Patient Information Assistant Expl anation ADVANCE DIRECTIVE 11/04/2020 6:27 AM Power of Set Off Press Operator-Medical * Full Code (Latest Code Status on File) Date Activated Date Inactivated Comments 11/04/2020 1:26 PM 11/06/2020 7:49 PM Care Teams Vault Clerk Relationship Specialty Start Date End Date No, Physician PCP - General 08/27/20 Rene Oliveros MD [address] [place] [address] Referring Physician Obstetrics and Gynecology 08/14/20
[2025-03-24 15:55] VITALS: BP 146/103; PULSE 85; RESP 18; TEMP 36.4; O2SAT 100
--- NOTE | 2025-03-24 16:15 | PC.NURSE ---
pt stated I am getting tired, I am going home
--- OUTSIDE RECORDS SUMMARY | 2025-03-24 16:42 | XMS_ITS | Referral Summary ---
Author Organization [facility] Address [address] [place] [address] Care Team Providers Care Garden Center Manager Name Role Phone Rene Oliveros MD Unavailable [phone], Physician Primary Care Provider [phone] Allergies No known active allergies Medications haloperidoL [...] milestones. Reviewed activity restrictions. Reviewed benign pathology. [place] removed. Recommend interdry. RTC 4 weeks for cuff check. 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 HELPER Gender Identity Not on file Sexual [...] REFLEX TO GENOTYPING Routine 08/27/2020 3:55 PM PAINT SPRAYING MACHINE OPERATOR HELPER from Last 3 Months or Most Recently Relevant to Health Maintenance Results * Pap and High Risk HPV, reflex to Genotyping (08/27/2020 3:55 PM PAINT SPRAYING MACHINE OPERATOR HELPER) 08/27/2020 3:55 PM PAINT SPRAYING MACHINE OPERATOR HELPER 08/27/2020 5:19 PM PAINT SPRAYING MACHINE OPERATOR HELPER [facility] LAB SYSTEM - 09/03/2020 12:33 PM PAINT SPRAYING MACHINE OPERATOR HELPER [facility] results best viewed via link to PDF [facility] of Surgical Pathology [address] [place], [place] [id number] CYTOPATHOLOGY REPORT FINAL Patient Name: KRYSTAL ARMIJO Gender: F : 1990 (Age: 29) Address: [address] [place] [address] Hospital #: [id number] Service: NUCLEAR CONTROL OPERATOR Location: [facility] Patient Type: [facility] Ancillary Taken: 08/27/2020 Received: 08/27/2020 Accessioned: [...] 68. This HPV test was performed at [facility] in [place], [place] utilizing the Gen-Probe Aptima assay. 09/03/2020 12:33 Ann Galindo [place](ASCP) Report Electronically Reviewed and Signed Out By [...] mass. The HPV test was performed by [facility], [address] [place] [address]. Report Images and scanned documents, if included only viewable in PDF version The performance characteristics of some immunohistochemical stains, in-situ hybridization and fluorescence in-situ hybridization tests and immunophenotyping by flow cytometry cited in this report (if any) were determined by the Surgical Pathology Department at [facility] as part of an ongoing director supplier quality program and in compliance with federally mandated [...] determined by the Surgical Pathology Department of [facility]. It has not been cleared or approved by the U. S. Food and Drug Administration. Ld Villarreal MD LAB CYTOLOGY ORDERABLES Final Result [facility] [address] [place] [address] from Last 3 Months or Most Recently Relevant to Health Maintenance [place] Advance Directives For more information, please contact: [phone] Documents on File Type Date Recorded Patient Manager Intranet Expl anation ADVANCE DIRECTIVE 11/04/2020 6:27 AM Power of Office Machines Wirer-Medical * Full Code (Latest Code Status on File) Date Activated Date Inactivated Comments 11/04/2020 1:26 PM 11/06/2020 7:49 PM Care Teams Garden Center Manager Relationship Specialty Start Date End Date No, Physician PCP - General 08/27/20 Rene Oliveros MD [address] [place] [address] Referring Physician Obstetrics and Gynecology 08/14/20
--- OUTSIDE RECORDS SUMMARY | 2025-03-24 16:42 | XMS_ITS | Clinical Summary ---
Author Organization [facility] Address [address] [place] [address] Care Team Providers Care Production Technologist Name Role Phone Rene Oliveros MD Unavailable [phone], Physician Primary Care Provider [phone] Allergies No known active allergies Medications haloperidoL [...] milestones. Reviewed activity restrictions. Reviewed benign pathology. [place] removed. Recommend interdry. RTC 4 weeks for cuff check. Home Companion Onc 6 week postop visit 12/19/20: Cuff [...] on file Legal Sex Female 8:52 AM AREA COUNSELOR Gender Identity Not on file Sexual Orientation [...] REFLEX TO GENOTYPING Routine 08/27/2020 3:55 PM AREA COUNSELOR from Last 3 Months or Most Recently Relevant to Health Maintenance Results * Pap and High Risk HPV, reflex to Genotyping (08/27/2020 3:55 PM AREA COUNSELOR) 08/27/2020 3:55 PM AREA COUNSELOR 08/27/2020 5:19 PM AREA COUNSELOR [facility] LAB SYSTEM - 09/03/2020 12:33 PM AREA COUNSELOR EPIC results best viewed via link to PDF [facility] Laboratory [place] [address] CYTOPATHOLOGY REPORT FINAL Patient Name: KRYSTAL ARMIJO Gender: Erlinda : 1990 (Age: 29) Address: [address] [place] [address] Hospital #: [id number] Service: FIELD AUTO APPRAISER Location: [facility] Patient Type: [facility] Ancillary Taken: 08/27/2020 Received: 08/27/2020 [...] 68. This HPV test was performed at [facility] in [place], [place] utilizing the Gen-Probe Aptima assay. 09/03/2020 [...] mass. The HPV test was performed by [facility], [address] [place] [address]. Report Images and scanned documents, if included only viewable in PDF version The performance characteristics of some immunohistochemical stains, in-situ hybridization and fluorescence in-situ hybridization tests and immunophenotyping by flow cytometry cited in this report (if any) were determined by the Surgical Pathology Department at [facility] as part of an ongoing quality control [...] determined by the Surgical Pathology Department of [facility]. It has not been cleared or approved by the U. S. Food and Drug Administration. Ld Villarreal MD LAB CYTOLOGY ORDERABLES Final Result [facility] [address] [id number] from Last 3 Months or Most Recently Relevant to Health Maintenance [place] [address] [place] [address] Advance Directives For more information, please contact: [phone] Documents on File Type Date Recorded Patient Watch Assembler Expl anation ADVANCE DIRECTIVE 11/04/2020 6:27 AM Power of General Manager Road Production-Medical * Full Code (Latest Code Status on File) Date Activated Date Inactivated Comments 11/04/2020 1:26 PM 11/06/2020 7:49 PM Care Teams Production Technologist Relationship Specialty Start Date End Date No, Physician PCP - General 08/27/20 Rene Oliveros MD [address] [place] [address] Referring Physician Obstetrics and Gynecology 08/14/20
== END 2025-03-24 16:15 | disposition left against medical advice (07) ==
LOC: ANHED 16:41
DX: R06.02 Shortness of breath (principal)
CPT/HCPCS: 99199